=== PATIENT | male | born 1950 | race Caucasian/White ===

== ENCOUNTER 2018-08-14 10:12 | Inpatient (IN) ==
--- NOTE | 2018-08-14 10:46 | Emergency Department Note ---
Altered Mental Status HPI - General Chief Complaint: Altered Mental Status Stated Complaint: confusion, SOB, cough Time Seen by Provider: 08/14/18 10:43 Source: patient Mode of arrival: wheelchair Limitations: no limitations - History of Present Illness HPI Narrative: 68-year-old male presents to ED via private vehicle with history of increased confusion since Tuesday. His states that he was at a wedding and he was sitting in a chair by himself, he was not socializing. Did have a little bit of diarrhea yesterday. History of chronic back pain for which she takes oxycodone. He may have taken a few extra oxycodone tablets and this might be what he has been confused. He still a little bit off this morning but only took 1 pill this morning. History of spinal stimulator implant in June of this year. Also he was weaned off of the fentanyl patch that he was on prior to that and he takes oxycodone on a regular basis. He mostly self administers, denies alcohol use. There is no history of nausea vomiting, he did fall several times this weekend, unknown as to head injury or not. He denies headache but he does have a cough, denies abdominal pain denies urinary symptoms. No fevers or chills, no chest pain. Walks with a cane normally. He has been a little bit off balance but he is always a little bit off balance. No focal one-sided weakness, no facial asymmetry, he is awake alert oriented 3 at this time. Mostly seems like he had personality plant changer the weekend. Unexplained. MD complaint: altered mental status, confusion Timing confirmed by: spouse, family member - Related Data Home Medications Medication Instructions Recorded Confirmed buprenorphine 20 mcg/hour weekly 1 patch TRANSDERMA QWEEK 05/18/17 04/20/18 transdermal patch diazepam 5 mg tablet 5 mg PO BID 05/18/17 04/20/18 hydrochlorothiazide 12.5 mg capsule 12.5 mg PO QDAY 05/18/17 04/20/18 latanoprost 0.005 % eye drops 1 drp OPHTHALMIC QPM ml 05/18/17 04/20/18 linagliptin 2.5 mg-metformin 1,000 1 tab PO BID 05/18/17 04/20/18 mg tablet meloxicam 15 mg tablet 15 mg PO QDAY 05/18/17 04/20/18 niacin ER 500 mg tablet,extended 500 mg PO BID tab 05/18/17 04/20/18 release 24 hr omega-3 fatty acids 1,000 mg 2,000 mg PO QDAY 05/18/17 04/20/18 capsule oxycodone-acetaminophen 5 mg-325 1 tab PO .Q4-6H PRN tab 05/18/17 04/20/18 mg tablet ropinirole 1 mg tablet 1 mg PO .COMPLEX 05/18/17 04/20/18 simvastatin 10 mg tablet 10 mg PO QPM 05/18/17 04/20/18 timolol maleate 0.5 % eye gel 1 drp OPHTHALMIC QDAY 05/18/17 04/20/18 forming solution amlodipine 10 mg-benazepril 20 mg 1 cap PO QDAY 05/26/17 04/20/18 capsule cholecalciferol (vitamin D3) 1,000 1,000 unit PO BID cap 05/26/17 04/20/18 unit capsule trazodone 50 mg tablet 50 mg PO QHS PRN 05/26/17 04/20/18 Previous Rx's Medication Instructions Recorded imipramine 25 mg tablet 25 mg PO QHS #30 tab 04/20/18 tamsulosin 0.4 mg capsule 0.8 mg PO QDAY #60 cap 04/20/18 Allergies Allergy/AdvReac Type Severity Reaction Status Date / Time No Known Drug Allergies Allergy Verified 08/14/18 10:15 Review of Systems Constitutional: Denies: fever, chills Eyes: Denies: eye pain ENT ED: Denies: ear pain, throat pain Cardiovascular: Denies: chest pain, palpitations, dyspnea on exertion Respiratory: Reports: cough. Denies: shortness of breath Gastrointestinal: Reports: diarrhea. Denies: abdominal pain, nausea Genitourinary: Denies: dysuria Musculoskeletal: Reports: back pain. Denies: joint swelling Integumentary: Denies: rash Neurological: Reports: weakness, paresthesias, confusion, abnormal gait. Denies: headache Psychiatric: Denies: anxiety Endocrine: Denies: fatigue Hematological/Lymphatic: Denies: easy bleeding Past Medical History - Past Medical History Source: nursing notes reviewed Medical history: Reports: arthritis, hypertension Surgical history ED: Reports: orthopedic, other, other (spinal stimulator implanted.) Family history: Reports: non-contributory - Social History smoking status: Never smoker Alcohol use: Reports: Rarely Drug use: Reports: none Physical Exam Limitations: no limitations General appearance: alert, in no apparent distress Head: atraumatic, normocephalic, normal inspection Eye: Present: normal appearance, PERRL, EOMI. Absent: conjunctival injection ENT: normal exam, normal oropharynx, mucous membranes moist, TM's normal bilate rally Neck: Present: normal inspection, full ROM, trachea midline. Absent: tenderness, meningismus, thyromegaly Chest: Present: normal inspection, symmetric chest wall rise. Absent: tenderness Respiratory: Present: normal lung sounds bilaterally. Absent: respiratory distress, rales/crackles, wheezes Cardiovascular: Present: regular rate, normal rhythm, normal heart sounds Abdominal: Present: soft. Absent: distention, tenderness, guarding : Present: normal inspection, normal testicular lie Extremities: Present: normal inspection, full ROM Back: Present: normal inspection, L-S tenderness, muscle spasm, paraspinal tenderness, other (no acute erythema, spinal stimulator to the left side of the spine, surgical scar tissue appears unremarkable.). Absent: CVA tenderness (R), CVA tenderness (L) Neurological: Present: alert, oriented X3, CN II-XII intact, other (slightly ataxic in. Finger to nose is off on the left side as well as right.) Psychiatric: Present: normal affect Skin: Present: warm, normal color. Absent: rash Course - Reevaluation(s) Reevaluation #1: Patient started on IV fluids up. Baseline labs as well as x-rays were ordered. A chest x-ray was negative for acute infiltrates. Spinal stimulator was noted to be in place in the area of T8. He did have evidence of compression fracture on the T-spine. This was thought to be old. No new findings. He has no acute new neurologic symptoms consistent with TIA or stroke. It turns out his calcium scores were very high at 17.[address] of the head is showing multiple osteobla stic lesions consistent with multiple myeloma. I did talk with Dr. Ham as well as nephrology and Dr. Villalobos who stated that he would be happy to consult. Final diagnosis is #1 altered level of mentation #2 chronic back pain on narcotics. #3 new findings of renal insufficiency with creatinine of 3.4. n#4) hypercalcemia. #5 likely new onset or new diagnosis of multiple myeloma. Vital Signs Temperature 98.4 F 08/14/18 10:12 Pulse Rate 110 H 08/14/18 10:12 Respiratory Rate 20 08/14/18 10:12 Blood Pressure 154/90 08/14/18 10:12 Pulse Oximetry (%) 96 08/14/18 10:12 Temperature 98.4 F 08/14/18 10:12 Pulse Rate 93 H 08/14/18 12:31 Respiratory Rate 20 08/14/18 10:12 Blood Pressure 175/93 08/14/18 12:31 Pulse Oximetry (%) 96 08/14/18 12:31 Altered Mental Status - Lab Data Lab results reviewed: Yes I reviewed the patient's lab results. Result diagrams: 08/14/18 10:45 08/14/18 10:45 Lab Results 08/14/18 08/14/18 08/14/18 Range/Units 10:45 10:45 10:45 WBC 8.7 (4.5-11.0) K/mcL RBC 3.95 L (4.50-5.90) M/mcL Hgb 11.9 L (13.5-16.5) g/dL Hct 35.4 L (41.0-55.0) % MCV 89.6 (80.0-100.0) fL MCH 30.1 (26.0-34.0) pg MCHC 33.6 (31.0-36.0) g/dL RDW 15.3 H (11.5-14.5) % Plt Count 196 (140-440) K/mcL MPV 10.0 (7.4-10.4) fL Total Counted 100 Seg Neutrophils % 78 (38-78) % Band Neutrophils % 3 (0-10) % Lymphocytes % 6 L (15-49) % Monocytes % (Manual) 11 (1-12) % Reactive Lymphocytes 2 (0-2) % Platelet Estimate Normal (NORMAL) RBC Morphology Normal (NORMAL) VBG Lactic Acid (0.5-2.0) mmol/L Sodium 135 (133-145) mmol/L Potassium 3.9 (3.3-5.1) mmol/L Chloride 93 L (96-108) mmol/L Carbon Dioxide 29 (22-30) mmol/L Anion Gap 13.0 (8-16) BUN 30 H (8-23) mg/dl Creatinine 3.4 H (0.7-1.2) mg/dl GFR Calculation 18 Glucose 195 H (70-105) mg/dL Calcium 17.0 H* (8.6-10.4) mg/dl Total Bilirubin 0.5 (0.0-1.0) mg/dL AST 28 (0-37) U/l ALT 31 (0-40) U/l Alkaline Phosphatase 77 (39-117) U/L C-Reactive Protein 3.2 H (0.0-0.8) mg/dl Total Protein 6.8 (5.9-8.4) gm/dL Albumin 3.9 (3.2-5.2) gm/dL Globulin 2.9 (2.2-3.7) gm/dL Albumin/Globulin Ratio 1.3 (1.0-2.3) Vitamin B12 383.2 (232-1245) pg/ml Folate (4.2-19.9) ng/mL TSH 1.71 (0.27-5.01) uIU/ml Urine Color Urine Appearance Urine pH (5.0-9.0) Ur Specific [place] (1.000-1.035) Urine Protein (NEG) mg/dL Urine Glucose (UA) (NEG) mg/dL Urine Ketones (NEG) mg/dL Urine Occult Blood (<0.03) mg/dL Urine Nitrate (NEG) Urine Bilirubin (NEG) mg/dL Urine Urobilinogen (NEG) mg/dL Ur Leukocyte Esterase (NEG) /uL Urine RBC (0-1) /hpf Urine WBC (0-4) /hpf Ur Squamous Epith Cells (0-4) /hpf Amorphous Crystals (0) /hpf Urine Bacteria (0) /hpf Hyaline Casts (0-2) /lpf Urine Mucus (0) /hpf Ur Culture Indicated? 08/14/18 08/14/18 08/14/18 Range/Units 10:45 10:52 11:25 WBC (4.5-11.0) K/mcL RBC (4.50-5.90) M/mcL Hgb (13.5-16.5) g/dL Hct (41.0-55.0) % MCV (80.0-100.0) fL MCH (26.0-34.0) pg MCHC (31.0-36.0) g/dL RDW (11.5-14.5) % Plt Count (140-440) K/mcL MPV (7.4-10.4) fL Total Counted Seg Neutrophils % (38-78) % Band Neutrophils % (0-10) % Lymphocytes % (15-49) % Monocytes % (Manual) (1-12) % Reactive Lymphocytes (0-2) % Platelet Estimate (NORMAL) RBC Morphology (NORMAL) VBG Lactic Acid 1.5 (0.5-2.0) mmol/L Sodium (133-145) mmol/L Potassium (3.3-5.1) mmol/L Chloride (96-108) mmol/L Carbon Dioxide (22-30) mmol/L Anion Gap (8-16) BUN (8-23) mg/dl Creatinine (0.7-1.2) mg/dl GFR Calculation Glucose (70-105) mg/dL Calcium (8.6-10.4) mg/dl Total Bilirubin (0.0-1.0) mg/dL AST (0-37) U/l ALT (0-40) U/l Alkaline Phosphatase (39-117) U/L C-Reactive Protein (0.0-0.8) mg/dl Total Protein (5.9-8.4) gm/dL Albumin (3.2-5.2) gm/dL Globulin (2.2-3.7) gm/dL Albumin/Globulin Ratio (1.0-2.3) Vitamin B12 (232-1245) pg/ml Folate 15.2 (4.2-19.9) ng/mL TSH (0.27-5.01) uIU/ml Urine Color Yellow Urine Appearance Cloudy Urine pH 5.0 (5.0-9.0) Ur Specific [place] 1.016 (1.000-1.035) Urine Protein 100 A (NEG) mg/dL Urine Glucose (UA) Negative (NEG) mg/dL Urine Ketones Neg (NEG) mg/dL Urine Occult Blood 0.03 A (<0.03) mg/dL Urine Nitrate Neg (NEG) Urine Bilirubin Neg (NEG) mg/dL Urine Urobilinogen Neg (NEG) mg/dL Ur Leukocyte Esterase Neg (NEG) /uL Urine RBC 3 H (0-1) /hpf Urine WBC 5 H (0-4) /hpf Ur Squamous Epith Cells 0 (0-4) /hpf Amorphous Crystals Mod A (0) /hpf Urine Bacteria 0 (0) /hpf Hyaline Casts 7 H (0-2) /lpf Urine Mucus Mod (0) /hpf Ur Culture Indicated? No - Radiology Data Radiology results reviewed: Yes I reviewed the patient's radiology results. Disposition Pt seen by CERTIFIED PHARMACY TECH/PA only: No Clinical Impression: Hypercalcemia, Altered mental status Disposition: Xfer As Inpt ([facility]) Condition: Fair Referrals: Deborah Garcia MD [Primary Care Provider] -
--- NOTE | 2018-08-14 10:47 | XRay Report ---
CLINICAL INFORMATION: weakness, SOB, cough COMPARISON: None. FINDINGS: The heart size, mediastinum and pulmonary vessels are unremarkable. The lungs are clear. There are no effusions. Spinal stimulator electrodes overlie the posterior epidural space at T7-T10 with no evidence of wire/electrode breakage. Mild T11 compression fracture is likely chronic. Moderate degenerative disease seen throughout the upper thoracic spine The bones and soft tissues are, otherwise, within normal limits. IMPRESSION: No acute cardiopulmonary disease. Interpreted and Authenticated by: Onesimo Gomez 08/14/18
[2018-08-14 11:25] LABS: Hematocrit 35.4 % (41.0-55.0); Hemoglobin 11.9 g/dL (13.5-16.5); Mean Cell Volume 89.6 fL (80.0-100.0); Mean Corpuscular HGB Conc 33.6 g/dL (31.0-36.0); Platelet Count 196 K/mcL (140-440); RBC 3.95 M/mcL (4.50-5.90); Red Cell Distribution Width 15.3 % (11.5-14.5); WBC 8.7 K/mcL (4.5-11.0)
[2018-08-14 11:59] LABS: ALT/SGPT 31 U/l (0-40); AST/SGOT 28 U/l (0-37); Albumin 3.9 gm/dL (3.2-5.2); Albumin/Globulin Ratio 1.3 (1.0-2.3); Alkaline Phosphatase 77 U/L (39-117); Band Neutrophils % 3 % (0-10); Bilirubin,Total 0.5 mg/dL (0.0-1.0); Blood Urea Nitrogen 30 mg/dl (8-23); C-Reactive Protein 3.2 mg/dl (0.0-0.8); Carbon Dioxide 29 mmol/L (22-30); Chloride 93 mmol/L (96-108); Globulin 2.9 gm/dL (2.2-3.7); Glomerular Filtration Rate 18; Glucose 195 mg/dL (70-105); Lymphocytes % 6 % (15-49); Monocytes % (Manual) 11 % (1-12); Platelet Estimate NORMAL (NORMAL); Potassium 3.9 mmol/L (3.3-5.1); RBC Morphology NORMAL (NORMAL); Reactive Lymphocytes 2 % (0-2); Segmented Neutrophils % 78 % (38-78); Sodium 135 mmol/L (133-145); Thyroid Stimulating Hormone 1.71 uIU/ml (0.27-5.01)
--- NOTE | 2018-08-14 12:02 | Cat Scan Report ---
CLINICAL INFORMATION: Confusion after closed head injury - fall COMPARISON: Brain MRI 06/17/2009 TECHNIQUE: 2.5 mm helical slices were obtained in the skull base to vertex. Following reconstruction, axial reformatted images were reviewed at bone and parenchymal windows. The exam was performed using radiation dose optimization techniques including, but not limited to, automated exposure control, adjustment of the mA and/or kV according to patient size and use of iterative reconstruction technique. FINDINGS: The ventricles, sulci, fissures, and cisterns are normal in size and configuration for age. No extra-axial fluid collections are identified. The cerebrum, brainstem and cerebellum are unremarkable. There is no evidence of hemorrhage, mass effect, or edema. Bone windows multiple lytic lesions widely disseminated throughout the area. Some of the lesions have eroded the inner and outer skull table. These are new from the brain MRI 2009.. IMPRESSION: 1. No hemorrhage or other intracerebral abnormality. 2. Multiple lytic lesions widely disseminated throughout the calvaria - new from a brain MRI nine years ago. Primary diagnostic considerations include multiple myeloma or multiple osteolytic metastases from a unknown primary carcinoma. Suggest: correlation with SPEP/ UPEP to exclude multiple myeloma. If these laboratory tests are negative, suggest CT of the chest, abdomen and pelvis to search for a primary tumor. Interpreted and Authenticated by: Onesimo Gomez 08/14/18
[2018-08-14 12:06] LABS: Vitamin B12 383.2 pg/ml (232-1245)
[2018-08-14 12:07] LABS: Folate 15.2 ng/mL (4.2-19.9)
[2018-08-14 12:07] LABS: Appearance,Urine CLOUDY; Bacteria,Urine 0 /hpf (0); Bilirubin,Urine NEG (NEG); Color,Urine YELLOW; Culture Indicated,Urine NO; Glucose,Urine (UA) NEGATIVE (NEG); Ketones,Urine NEG (NEG); Leukocyte Esterase,Urine NEG /uL (NEG); Mucus,Urine MOD /hpf (0); Nitrate,Urine NEG (NEG); Protein,Urine 100 mg/dL (NEG); Specific Gravity,Urine 1.016 (1.000-1.035); Urine Amorphous Crystals MOD /hpf (0); Urine Blood 0.03 mg/dL (<0.03); Urine Hyaline Cast 7 /lpf (0-2); Urine RBC 3 /hpf (0-1); Urine Squamous Epithelial Cell 0 /hpf (0-4); Urine WBC 5 /hpf (0-4); Urobilinogen,Urine NEG (NEG)
[2018-08-14] MEDS ORDERED: FUROSEMIDE 40 MG/4 ML VIAL IV ONE ×2 (12:59→23:30)
[2018-08-14] MEDS ORDERED: 0.9 % SODIUM CHLORIDE 1,000 ML IV SCH (13:00)
--- NOTE | 2018-08-14 13:44 | Internal Med History&Physical ---
Medical - H&P: HPI Patient information: Note initiated : 08/14/18 at 1:39 pm Service Date, if different from initiated Date: [] Patient: Joshua Adams a 68 y/o M admitted on for Confusion, SOB, Cough. Chief Complaint: [] History of present illness: Mr. Adams is a 68 year old M Who presents the ED with his for increased weakness confusion over the weekend. Per his seem to start Tuesday but especially Tuesday was noticeable when they were at a wedding and he was over sitting in chair by himself not talking to anybody in not communicating much with people who would interact with him. His said this is quite unusual as he is quite gregarious and is hard for him to not talk. He was unable to follow conversations and was not making sense. Tuesday was a little bit better but he is still confused. wanted to bring him into the hospital but he wanted to wait and see Dr. pavon. He called Dr. Solano's office on Tuesday and patient was unable to be seen on the same day so his brought him into the ED. Does have a bit of a dry cough and has some chest pain which is related to pleuritic chest pain anterior wall where he fell against a door jam in the bathroom. Feels he does not take a deep breath because of the pain. He is oxygenating well in the ED. Chest x-ray in the ED was unremarkable. He did have one episode nausea vomiting last night. She does feel foggy and admits to being extremely weak. He has a mild headache but no other complaints other than was mentioned above. In the ED he was evaluated for labs and imaging found to have a severe hypercalcemia at 17 renal failure with creatinine 3.[address] brain showed multiple lytic lesions throughout the school. Case was discussed with Dr. Carolyn sprague as this appears to be a case of multiple myeloma. We will follow along. Case was also discussed with health sciences dean who will follow along. Patient started on IV hydration in the ED. Has a history of chronic pain from lumbar cervical region of the spine. His chronic pain seems to have progressed over the past 6 months. Review of Systems: Pertinent positives as above. Denies fever/chills/abdominal pain/diarrhea. 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) RLS (restless legs syndrome) (Chronic) Impaired fasting glucose (Chronic) Dyslipidemia (Chronic) BPH w/o urinary obs/LUTS (Chronic) Insomnia (Chronic) Hypertension (Chronic) Glaucoma (Chronic) Fatty liver (Chronic) Past Surgical History (Last Reviewed 04/20/18 @ 09:09 by VIVAINE Ferris) History of repair of rotator cuff (Chronic) Family History (Last Reviewed 04/20/18 @ 09:09 by VIVIANE Ferris) Father Alzheimer's disease CAD (coronary artery disease) Heart disease Mother Malignant neoplasm of pancreas Other Diabetes Social History (Last Updated 04/20/18 @ 10:10 by VIVIANE Ferris) Denies tobacco Social alcohol Embolus with a cane 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 at home with family Medical - H&P: Meds Home Medications Medication Instructions Recorded Confirmed Type buprenorphine 20 mcg/hour weekly 1 patch TRANSDERMA QWEEK 05/18/17 04/20/18 History transdermal patch diazepam 5 mg tablet 5 mg PO BID 05/18/17 04/20/18 History hydrochlorothiazide 12.5 mg capsule 12.5 mg PO QDAY 05/18/17 04/20/18 History latanoprost 0.005 % eye drops 1 drp OPHTHALMIC QPM ml 05/18/17 04/20/18 History linagliptin 2.5 mg-metformin 1,000 1 tab PO BID 05/18/17 04/20/18 History mg tablet meloxicam 15 mg tablet 15 mg PO QDAY 05/18/17 04/20/18 History niacin ER 500 mg tablet,extended 500 mg PO BID tab 05/18/17 04/20/18 History release 24 hr omega-3 fatty acids 1,000 mg 2,000 mg PO QDAY 05/18/17 04/20/18 History capsule oxycodone-acetaminophen 5 mg-325 1 tab PO .Q4-6H PRN tab 05/18/17 04/20/18 History mg tablet ropinirole 1 mg tablet 1 mg PO .COMPLEX 05/18/17 04/20/18 History simvastatin 10 mg tablet 10 mg PO QPM 05/18/17 04/20/18 History timolol maleate 0.5 % eye gel 1 drp OPHTHALMIC QDAY 05/18/17 04/20/18 History forming solution amlodipine 10 mg-benazepril 20 mg 1 cap PO QDAY 05/26/17 04/20/18 History capsule cholecalciferol (vitamin D3) 1,000 1,000 unit PO BID cap 05/26/17 04/20/18 History unit capsule trazodone 50 mg tablet 50 mg PO QHS PRN 05/26/17 04/20/18 History imipramine 25 mg tablet 25 mg PO QHS #30 tab 04/20/18 04/20/18 Rx tamsulosin 0.4 mg capsule 0.8 mg PO QDAY #60 cap 04/20/18 04/20/18 Rx Allergies Allergy/AdvReac Type Severity Reaction Status Date / Time No Known Drug Allergies Allergy Verified 08/14/18 10:15 Medical - H&P: Exam - Constitutional Vitals: Temp Pulse Resp BP Pulse Ox 98.4 F 105 H 20 170/95 96 08/14/18 10:12 08/14/18 13:01 08/14/18 10:12 08/14/18 13:01 08/14/18 13:01 Exam: General: Alert, Awake, No acute Distress Eyes/N/T: EOMI, PEERL, DMM Head/Neck: neck supple, normocephalic atraumatic CV: RRR, 2/6 SM Pulm: Clear b/l, no wheezing/rhonchi/rales Abd: soft, nontender, +BS x4 Ext: no clubbing/cyanosis/edema Neuro: Alert, no focal deficits, moves all extremities, CN 2-12 grossly intact, symmetrical strength b/l upper/lower but also significantly weak, sensations intact b/l upper/lower Skin: warm/dry Medical - H&P: Reslt - Labs CBC & Chem 7: 08/14/18 10:45 08/14/18 10:45 Labs: Short CBC 08/14/18 Range/Units 10:45 WBC 8.7 (4.5-11.0) K/mcL Hgb 11.9 L (13.5-16.5) g/dL Hct 35.4 L (41.0-55.0) % Plt Count 196 (140-440) K/mcL BMP 08/14/18 10:45 Sodium 135 Potassium 3.9 Chloride 93 L Carbon Dioxide 29 BUN 30 H Creatinine 3.4 H Glucose 195 H Calcium 17.0 H* Liver Function 08/14/18 Range/Units 10:45 Total Bilirubin 0.5 (0.0-1.0) mg/dL AST 28 (0-37) U/l ALT 31 (0-40) U/l Alkaline Phosphatase 77 (39-117) U/L Albumin 3.9 (3.2-5.2) gm/dL Urine 08/14/18 Range/Units 11:25 Urine Color Yellow Urine Appearance Cloudy Urine pH 5.0 (5.0-9.0) Ur Specific [address] 1.016 (1.000-1.035) Urine Protein 100 A (NEG) mg/dL Urine Glucose (UA) Negative (NEG) mg/dL - Impressions Chest x-ray unremarkable CT brain with multiple lytic lesions widely disseminated throughout the calvaria Medical - H&P: A/P - Narrative A/P Narrative: A: *Hypercalcemia: Highly suspicious for multiple myeloma *Cranial lytic lesions: 2/2 likely multiple myeloma *PETTY: 2/2 above *NCNC Anemia: 2/2 above *Encephalopathy, metabolic: 2/2 above *DM: *HTN/HLD: *Anxiety: *Chronic pain: * P: -Aggressive IVF -lasix after hydration -Denosumab, calcitonin -f/u chemistry -Nephrology consult -Dr. Leon consult -Dexamethasone 40mg qd x4 -SPEP/UPEP w/immunofix, Qaunt Ig, Free light chain pending -skeletal survey -cont isabel norvasc, hold ACEI/HCTZ, prn med -d/c Vit D supp -SSI, hold metformin - -pt/ot -ppx: heparin
[2018-08-14] MEDS ORDERED: LABETALOL 5 MG/ML ML IV PRN (14:06)
[2018-08-14] MEDS ORDERED: PROMETHAZINE 12.5 MG SUPP.RECT PR PRN (14:24)
[2018-08-14] MEDS ORDERED: POTASSIUM CHLORIDE 20 MEQ TABLET PO PRN ×2 (14:24)
[2018-08-14] MEDS ORDERED: POLYETHYLENE GLYCOL 3350 17 GM PACKET PO PRN (14:24)
[2018-08-14] MEDS ORDERED: MAGNESIUM SULFATE 2 GM/50 ML BAG IV PRN (14:24)
[2018-08-14] MEDS ORDERED: LACTULOSE 20 GM/30 ML ORAL.SOL PO PRN (14:24)
[2018-08-14] MEDS ORDERED: IPRATROPIUM/ALBUTEROL 3 ML AMPUL.NEB NEB PRN (14:24)
[2018-08-14] MEDS ORDERED: ONDANSETRON 4 MG/2 ML VIAL IV PRN (14:24)
[2018-08-14] MEDS ORDERED: CALCITONIN 400 UNIT/2 ML VIAL IM ONE (14:24)
[2018-08-14] MEDS ORDERED: METOCLOPRAMIDE 10 MG/2 ML VIAL IV PRN (14:24)
[2018-08-14] MEDS ORDERED: POTASSIUM CHLORIDE 40 MEQ in DEXTROSE 5% IN WATER 500 ML IV PRN (14:24)
[2018-08-14] MEDS ORDERED: HYDROcodone/APAP 5/325MG TABLET PO PRN (14:24)
[2018-08-14] MEDS ORDERED: DENOSUMAB 60 MG/ML SYRINGE SQ ONE ×2 (15:00→16:00)
[2018-08-14 15:18] LABS: Immunoglobulin M 9.7 mg/dl (40.0-230.0)
[2018-08-14 15:20] LABS: Immunoglobulin A 88.5 mg/dl (70.0-400.0); Total Protein PEP 6.5 gm/dL (5.9-8.4)
[2018-08-14] MEDS: 0.9 % SODIUM CHLORIDE 10 ML SYRINGE IV SCH ×2 (16:04→22:01)
[2018-08-14] MEDS: 0.9 % SODIUM CHLORIDE 1,000 ML IV SCH ×2 (16:11→20:37)
[2018-08-14] MEDS: DEXAMETHASONE 4 MG TABLET PO SCH (16:13)
[2018-08-14] MEDS: INSULIN LISPRO 1 UNIT/0.01 ML UNIT SQ SCH ×2 (17:07→21:56)
[2018-08-14] MEDS: amLODIPine 10 MG TABLET PO SCH (17:40)
--- NOTE | 2018-08-14 17:54 | Nephrology Consult Note ---
History of Present Illness - Reason for Consult Patient information: Note initiated : 08/14/18 at 5:52 pm Service Date, if different from initiated Date: [] Patient: Joshua Adams 68 y/o M admitted on 08/14/18 for Confusion, SOB, Cough. 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 This continued on till today when he was brought to ED. Initial concern was for to much pain Rx. The tentitive Dx of MM was made with Ca > 17, SCr >3 mg/dl and CT brain with a c alvarium full of ostolytic lesions. He is probable volume depleted but HgB 11's, no acidosis, albumin and globulin are WNL, normal anion gap. U/A with moderate proteinuria. When called by ED I recommended IV hydration, stop any nephrotoxic Rx, once volume repleate start TID lasix for caluresis, and maybe palmidronate. Will w/u dx of myeloma with SPEP, UpEP and immmunofixation and free light chain ratio as well as bone marrow Bx and heme onc referral. Very few diseases cause a Ca > 17. Besides MM, there is HTLV-1 infection, hypercalcemia of malignancy with volume contraction, sarcoidosis and milk alkali syndrome. Taken as a whole, LBP, skull lesions and hypercalcemia = MM till proven otherwise. The first order of business in any of these situations is volume expansion due to hypercalcemia driven diuresis before hospitalization. Review of Systems ROS unobtainable: due to mental status Constitutional: fatigue, weakness Nose, mouth and throat: dry mouth Breasts: skin changes Cardiovascular: irregular heart rhythm Respiratory: cough Genitourinary: other Musculoskeletal: as per HPI, muscle weakness Integumentary: dry skin Neurological: as per HPI, confusion, disequilibrium Endocrine: fatigue, polydipsia Hematologic/Lymphatic: easy bleeding Past History Past medical history: - Past Medical History Source: nursing notes reviewed Medical history: Reports: arthritis, hypertension Surgical history ED: Reports: orthopedic, other, other (spinal stimulator implanted.) Family history: Reports: non-contributory - Social History smoking status: Never smoker Alcohol use: Reports: Rarely Drug use: Reports: none Medications and Allergies Home Medications Medication Instructions Recorded Confirmed Type diazepam 5 mg tablet 5 mg PO BID PRN 05/18/17 08/14/18 History hydrochlorothiazide 12.5 mg capsule 12.5 mg PO QDAY 05/18/17 08/14/18 History linagliptin 2.5 mg-metformin 1,000 1 tab PO BID 05/18/17 08/14/18 History mg tablet meloxicam 15 mg tablet 15 mg PO QDAY PRN 05/18/17 08/14/18 History niacin ER 500 mg tablet,extended 500 mg PO BID tab 05/18/17 08/14/18 History release 24 hr oxycodone-acetaminophen 5 mg-325 1 - 2 tab PO BID PRN tab 05/18/17 08/14/18 History mg tablet ropinirole 1 mg tablet 1 mg PO .COMPLEX 05/18/17 08/14/18 History simvastatin 10 mg tablet 10 mg PO QPM 05/18/17 08/14/18 History amlodipine 10 mg-benazepril 20 mg 1 cap PO QDAY 05/26/17 08/14/18 History capsule trazodone 50 mg tablet 50 mg PO QHS 05/26/17 08/14/18 History imipramine 25 mg tablet 25 mg PO QHS #30 tab 04/20/18 08/14/18 Rx tamsulosin 0.4 mg capsule 0.8 mg PO QDAY #60 cap 04/20/18 08/14/18 Rx Chlorhexidine Gluconate [Paroex] 15 ml .ROUTE BID 08/14/18 08/14/18 History [place]-3/Dha/Epa/Fish Oil [Fish Oil 1 each PO QDAY 08/14/18 08/14/18 History 1,000 mg Softgel] Sildenafil Citrate [Revatio] 100 mg PO DAILY 08/14/18 08/14/18 History Allergies Allergy/AdvReac Type Severity Reaction Status Date / Time No Known Drug Allergies Allergy Verified 08/14/18 10:15 Exam - Vital Signs Vital signs: Temp Pulse Resp BP Pulse Ox 98.4 F 77 18 165/99 92 08/14/18 14:28 08/14/18 17:42 08/14/18 16:01 08/14/18 16:01 08/14/18 17:42 - General Appearance General appearance: appears started age, chronically ill, fatigue EENT: ATNC, PERRL, mucous membranes dry Neck: no JVD, no carotid bruit Respiratory: rhonchi Cardiology: no rub, no gallops, regular rate Gastrointestinal: normoactive bowel sounds, no tenderness, no guarding, no organomegaly Neurologic: no focal deficit, confused, disoriented Musculoskeletal: no deformities, no erythema, no cyanosis, no clubbing Results - Lab Results 08/14/18 10:45 08/14/18 18:37 Most recent lab results Calcium 17.0 mg/dl (8.6-10.4) H* 08/14/18 10:45 Magnesium 1.7 mg/dL (1.6-2.5) 08/14/18 10:45 Assessment and Plan (1) Hypercalcemia The D/Dx for this is as follows: Multiple myeloma Hypercalcemia of malignancy Sarcoidosis or other granulomatous disease 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 - Calcitonin to see if responsive - Prolia or Pamidronate tomorrow if IVF and calcitonin not effective - No lasix yet Have added angiotenin enzyme level and PTH related peptide to AM labs but I seriously doubt they will be helpful Status: Acute Comment: Calvarium lesions and CA = 17 with presumed ARF = myeloma related disease till proven otherwise (2) Acute renal failure syndrome Status: Acute - Narrative A/P Narrative: The D/Dx for presumed ARF (no history of elevated SCr and prior U/A was bland and w/o proteinuria in EMR Dehydration Dehdration plus ACEi, thiazide and NSAIDs (ie pre-renal) Myeloma kidney - monitor GFR - Renal u/s - Hydrate - Follow u/p labs if no inprovement in 72 hours
--- NOTE | 2018-08-14 18:50 | XRay Report ---
CLINICAL INFORMATION: lytic lesions, suspect multiple myeloma COMPARISON: None. FINDINGS: There are multiple widely disseminated lytic lesions throughout the calvarium greater than 50 in number ranging up to 2 cm.. There are, however no definite lytic lesions seen throughout the remainder of the axial or appendicular skeleton. Mild T11 compression fractures is chronic IMPRESSION: Multiple lytic lesions confined to the calvarium. Interpreted and Authenticated by: Onesimo Gomez 08/14/18
[2018-08-14 19:36] LABS: Blood Urea Nitrogen 29 mg/dl (8-23); Calcium 15.8 mg/dl (8.6-10.4); Carbon Dioxide 30 mmol/L (22-30); Chloride 94 mmol/L (96-108); Glomerular Filtration Rate 19; Glucose 242 mg/dL (70-105); Potassium 4.1 mmol/L (3.3-5.1); Sodium 135 mmol/L (133-145)
[2018-08-14] MEDS ORDERED: rOPINIRole 1 MG TABLET PO SCH (21:00)
[2018-08-14] MEDS: LABETALOL 5 MG/ML ML IV PRN (21:00)
[2018-08-14] MEDS ORDERED: SENNOSIDES 1 TABLET PO PRN (21:00)
[2018-08-14] MEDS ORDERED: MAGNESIUM OXIDE 400 MG TABLET PO ONE (21:14)
[2018-08-14] MEDS ORDERED: INSULIN LISPRO 1 UNIT/0.01 ML UNIT SQ ONE (21:53)
[2018-08-14] MEDS: IMIPRAMINE 25 MG TABLET PO SCH (21:58)
[2018-08-14] MEDS: FAMOTIDINE 20 MG TABLET PO SCH (21:58)
[2018-08-14] MEDS: DOCUSATE SODIUM 100 MG CAPSULE PO SCH (21:58)
[2018-08-14] MEDS: oxyCODONE/APAP 5/325MG TABLET PO PRN (21:58)
[2018-08-14] MEDS: traZODone HCL 50 MG TABLET PO SCH (21:58)
[2018-08-14] MEDS: SIMVASTATIN 10 MG TABLET PO SCH (21:59)
[2018-08-14] MEDS: HEPARIN 5,000 UNIT/ML VIAL SQ SCH (21:59)
[2018-08-14 23:13] LABS: Albumin 3.7 gm/dL (3.2-5.2); Calcium 16.3 mg/dl (8.6-10.4); Phosphorous 2.9 mg/dL (2.7-4.5); Potassium 4.2 mmol/L (3.3-5.1)
[2018-08-15] MEDS: 0.9 % SODIUM CHLORIDE 1,000 ML IV SCH ×5 (00:39→22:57)
[2018-08-15] MEDS: 0.9 % SODIUM CHLORIDE 10 ML SYRINGE IV SCH ×3 (04:08→22:37)
--- NOTE | 2018-08-15 05:22 | Ultrasound Report ---
CLINICAL INFORMATION: ARF COMPARISON: None. FINDINGS: Both kidneys are normal and symmetric in size, position, configuration and echotexture: Right is 11.3 x 6 cm the left is 13 x 5 cm. No focal solid or cystic lesions, stones. No hydronephrosis. Arterial blood flow is normal to both kidneys on color Doppler Urinary bladder volume is 225 cc and the patient voids to completion. No focal bladder lesions. IMPRESSION: Normal kidneys and urinary bladder Interpreted and Authenticated by: Onesimo Gomez 08/15/18
[2018-08-15] MEDS: LABETALOL 5 MG/ML ML IV PRN (06:10)
[2018-08-15 06:54] LABS: Basophils # (Auto) 0 K/mcL (0.0-0.3); Basophils % (Auto) 0 % (0.0-2.0); Eosinophils # (Auto) 0 K/mcL (0.0-0.7); Eosinophils % (Auto) 0 % (0.0-7.0); Hematocrit 36.5 % (41.0-55.0); Hemoglobin 12.1 g/dL (13.5-16.5); Lymphocytes # (Auto) 0.3 K/mcL (1.5-4.8); Lymphocytes % (Auto) 4.4 % (15.5-49.0); Mean Corpuscular HGB Conc 33.1 g/dL (31.0-36.0); Monocytes # (Auto) 0 K/mcL (0.1-0.9); Monocytes % (Auto) 0.6 % (1.0-12.0); Platelet Count 180 K/mcL (140-440); RBC 4.05 M/mcL (4.50-5.90); Red Cell Distribution Width 15.6 % (11.5-14.5); WBC 7.6 K/mcL (4.5-11.0)
[2018-08-15 07:17] LABS: Parathyroid Hormone Intact 8.8 pg/ml (15-65)
[2018-08-15 07:38] LABS: ALT/SGPT 26 U/l (0-40); AST/SGOT 24 U/l (0-37); Albumin 3.9 gm/dL (3.2-5.2); Albumin/Globulin Ratio 1.4 (1.0-2.3); Alkaline Phosphatase 70 U/L (39-117); Bilirubin,Direct < 0.2 mg/dL (0.0-0.3); Bilirubin,Total 0.4 mg/dL (0.0-1.0); Blood Urea Nitrogen 34 mg/dl (8-23); Calcium 14.7 mg/dl (8.6-10.4); Carbon Dioxide 27 mmol/L (22-30); Chloride 94 mmol/L (96-108); Globulin 2.8 gm/dL (2.2-3.7); Glomerular Filtration Rate 18; Glucose 268 mg/dL (70-105); Lactate Dehydrogenase 264 U/L (94-250); Magnesium 1.4 mg/dL (1.6-2.5); Phosphorous 3.5 mg/dL (2.7-4.5); Potassium 3.8 mmol/L (3.3-5.1); Sodium 136 mmol/L (133-145); Triglycerides 101 mg/dl (<150); Uric Acid 11.3 mg/dL (2.5-8.0)
[2018-08-15] MEDS: INSULIN LISPRO 1 UNIT/0.01 ML UNIT SQ SCH ×5 (07:41→19:53)
[2018-08-15] MEDS ORDERED: MAGNESIUM SULFATE 2 GM/50 ML BAG IV ONE (07:50)
[2018-08-15] MEDS ORDERED: hydrALAZINE 20 MG/ML VIAL IV PRN (07:54)
--- NOTE | 2018-08-15 07:55 | Internal Med Progress Note ---
Medical - PN: Subj Patient information: Note initiated : 08/15/18 at 7:46 am Service Date, if different from initiated Date: [] Patient: Joshua Adams 68 y/o M admitted on 08/14/18 for Confusion, SOB, Cough. Chief Complaint: [] Interval history: Mr. Adams is a 68 year old M Who presents the ED with his for increased weakness confusion over the weekend. Per his seem to start Tuesday but especially Tuesday was noticeable when they were at a wedding and he was over sitting in chair by himself not talking to anybody in not communicating much with people who would interact with him. His said this is quite unusual as he is quite gregarious and is hard for him to not talk. He was unable to follow conversations and was not making sense. Tuesday was a little bit better but he is still confused. wanted to bring him into the hospital but he wanted to wait and see Dr. pavon. He called Dr. Solano's office on Tuesday and patient was unable to be seen on the same day so his brought him into the ED. Does have a bit of a dry cough and has some chest pain which is related to pleuritic chest pain anterior wall where he fell against a door jam in the bathroom. Feels he does not take a deep breath because of the pain. He is oxygenating well in the ED. Chest x-ray in the ED was unremarkable. He did have one episode nausea vomiting last night. She does feel foggy and admits to being extremely weak. He has a mild headache but no other complaints other than was mentioned above. In the ED he was evaluated for labs and imaging found to have a severe hypercalcemia at 17 renal failure with creatinine 3.[address] brain showed multiple lytic lesions throughout the school. Case was discussed with Dr. Carolyn sprague as this appears to be a case of multiple myeloma. We will follow along. Case was also discussed with quality engineer medical device who will follow along. Patient started on IV hydration in the ED. Has a history of chronic pain from lumbar cervical region of the spine. His chronic pain seems to have progressed over the past 6 months. 08/15 Slept well. Only complains of mild headache and chronic back pain. When in A. fib rate controlled last night. Calcium slowly coming down. Able to get calcitonin this morning. IV fluids. Review of Systems: denies fever/chills/nausea/vomiting/chest or abdominal pain/cough/dyspnea/diarrhea. Otherwise see above. - Constitutional Vitals: Vital Signs Temp Pulse Resp BP Pulse Ox 97.9 F 94 H 16 171/85 97 08/15/18 04:01 08/15/18 04:06 08/15/18 04:01 08/15/18 04:01 08/15/18 04:06 Period Temp Pulse Resp BP Sys/Katz Pulse Ox Last 24 Hr 97.9 F-99.1 F 35-110 16-20 123-186/71-99 82-99 Intake and Output 08/14/18 08/15/18 08/15/18 21:59 05:59 13:59 Intake Total 1838 2000 Output Total 800 1370 775 Balance 1038 630 775 Weight 84.55 kg Intake & Output: Intake & Output 08/14/18 08/15/18 08/15/18 21:59 05:59 13:59 Intake Total 1838 2000 Output Total 800 1370 775 Balance 1038 630 775 Weight 84.55 kg Intake: IV 1358 2000 Sodium Chloride 0.9% 1,000 ml @ 1358 2000 250 mls/hr IV .Q4H [facility] Rx#: [id number] Oral 480 Output: Urine Catheter Amount 1370 775 Void Amount 800 Other: Urine Appearance Clear Clear Clear Uretheral (Clifford) Clear Urine Color Pale Pale Pale Uretheral (Clifford) Pale Exam: General: Alert, Awake, No acute Distress Eyes/N/T: EOMI, Head/Neck: neck supple, CV: RRR, 2/6 SM Pulm: Clear b/l, no wheezing/rhonchi/rales Abd: soft, nontender, +BS x4 Ext: no clubbing/cyanosis/edema Neuro: Alert, no focal deficits, moves all extremities, Skin: warm/dry Medical - PN: Obj Da - Labs CBC & Chem 7: 08/15/18 03:40 08/15/18 03:40 Labs: Abnormal Lab Results 08/15/18 08/15/18 08/15/18 03:40 03:40 03:40 RBC 4.05 L Hgb 12.1 L Hct 36.5 L RDW 15.6 H Gran % 95.0 H Lymph % (Auto) 4.4 L [place] % (Auto) 0.6 L Lymph # (Auto) 0.3 L [place] # (Auto) 0 L Lymphocytes % Sodium Chloride 94 L BUN 34 H Creatinine 3.3 H Glucose 268 H Uric Acid 11.3 H Calcium 14.7 H* Magnesium 1.4 L Lactate Dehydrogenase 264 H C-Reactive Protein PTH Intact 8.8 L Urine Protein Urine Occult Blood Urine RBC Urine WBC Amorphous Crystals Hyaline Casts IgG IgM 08/14/18 08/14/18 08/14/18 18:39 18:37 11:25 RBC Hgb Hct RDW Gran % Lymph % (Auto) [place] % (Auto) Lymph # (Auto) [place] # (Auto) Lymphocytes % Sodium 132 L Chloride 92 L 94 L BUN 29 H 29 H Creatinine 3.6 H 3.2 H Glucose 247 H 242 H Uric Acid Calcium 16.3 H* 15.8 H* Magnesium Lactate Dehydrogenase C-Reactive Protein PTH Intact Urine Protein 100 A Urine Occult Blood 0.03 A Urine RBC 3 H Urine WBC 5 H Amorphous Crystals Mod A Hyaline Casts 7 H IgG IgM 08/14/18 08/14/18 08/14/18 10:45 10:45 10:45 RBC Hgb Hct RDW Gran % Lymph % (Auto) [place] % (Auto) Lymph # (Auto) [place] # (Auto) Lymphocytes % Sodium Chloride 93 L BUN 30 H Creatinine 3.4 H Glucose 195 H Uric Acid Calcium 17.0 H* Magnesium Lactate Dehydrogenase C-Reactive Protein 3.2 H PTH Intact Urine Protein Urine Occult Blood Urine RBC Urine WBC Amorphous Crystals Hyaline Casts IgG 580 L IgM 9.7 L 08/14/18 10:45 RBC 3.95 L Hgb 11.9 L Hct 35.4 L RDW 15.3 H Gran % Lymph % (Auto) [place] % (Auto) Lymph # (Auto) [place] # (Auto) Lymphocytes % 6 L Sodium Chloride BUN Creatinine Glucose Uric Acid Calcium Magnesium Lactate Dehydrogenase C-Reactive Protein PTH Intact Urine Protein Urine Occult Blood Urine RBC Urine WBC Amorphous Crystals Hyaline Casts IgG IgM Meds: Medications Albuterol/Ipratropium (Duoneb) 3 ml NEB Q4HP PRN PRN Reason: Shortness Of Breath Amlodipine Besylate (Norvasc) 10 mg PO DAILY [facility] Last Admin: 08/14/18 17:40 Dose: 10 mg Documented by: Calcitonin Voss (Miacalcin) 300 unit IM BID [facility] Stop: 08/15/18 21:01 Dexamethasone (Decadron) 40 mg PO DAILY [facility] Stop: 08/17/18 09:01 Last Admin: 08/14/18 16:13 Dose: 40 mg Documented by: Diagnostic Test (Pha) (Accu-Chek) 1 each FS ACHS [facility] Last Admin: 08/15/18 07:43 Dose: 1 each Documented by: Diazepam (Valium) 5 mg PO BIDP PRN PRN Reason: Anxiety Docusate Sodium (Colace) 100 mg PO BID [facility] Last Admin: 08/14/18 21:58 Dose: 100 mg Documented by: Famotidine (Pepcid) 20 mg PO BID [facility] Last Admin: 08/14/18 21:58 Dose: 20 mg Documented by: Heparin Sodium (Porcine) (Heparin) 5,000 unit SQ Q12 [facility] Last Admin: 08/14/18 21:59 Dose: 5,000 unit Documented by: Potassium Chloride 40 meq/ (Dextrose) 520 mls @ 130 mls/hr IV UD PRN PRN Reason: Potassium < 3 Magnesium Sulfate (Magnesium Sulfate) 2 gm in 50 mls @ 50 mls/hr IV UD PRN PRN Reason: Magnesium </= 1.6 Imipramine HCl (Tofranil) 25 mg PO QHS [facility] Last Admin: 08/14/18 21:58 Dose: 25 mg Documented by: Insulin Human Lispro (Humalog) 0 unit SQ [facility]; Protocol Last Admin: 08/15/18 07:41 Dose: 9 unit Documented by: Labetalol HCl (Trandate) 0 mg IV Q2HP PRN PRN Reason: Hypertension Last Admin: 08/15/18 06:10 Dose: 10 mg Documented by: Lactulose (Cephulac) 10 gm PO DAILYP PRN PRN Reason: Constipation Metoclopramide HCl (Reglan) 10 mg IV Q6HP PRN PRN Reason: Nausea And Vomiting Morphine Sulfate (Morphine) 0 mg IV Q3HP PRN PRN Reason: Pain Ondansetron HCl (Zofran) 4 mg IV Q4HP PRN PRN Reason: Nausea And Vomiting Oxycodone/Acetaminophen (Percocet 5-325 Mg) 1 - 2 tab PO BIDP PRN PRN Reason: Pain Last Admin: 08/14/18 21:58 Dose: 1 tab Documented by: Sildenafil Citrate [ Revatio] 20 Mg Tablet 1 dose PO DAILY [facility] Polyethylene Glycol (Miralax) 17 gm PO DAILYP PRN PRN Reason: Constipation Potassium Chloride (Kdur) 40 meq PO UD PRN PRN Reason: Potssium is 3-3.5 Potassium Chloride (Kdur) 40 meq PO UD PRN PRN Reason: Potassium < 3 Promethazine HCl (Phenergan) 12.5 mg MN Q6HP PRN PRN Reason: Pain Senna (Senokot) 2 tab PO HSP PRN PRN Reason: Constipation Simvastatin (Zocor) 10 mg PO QPM [facility] Last Admin: 08/14/18 21:59 Dose: 10 mg Documented by: Sodium Chloride (Saline Flush) 10 ml IV Q8 [facility] Last Admin: 08/15/18 04:08 Dose: Not Given Documented by: Tamsulosin HCl (Flomax) 0.8 mg PO QDAY [facility] Trazodone HCl (Desyrel) 50 mg PO QHS [facility] Last Admin: 08/14/18 21:58 Dose: 50 mg Documented by: Medical - PN: A/P - Time Spent With Patient Total time spent is greater than 50% in coordination of care (as documented) at patient's floor/unit and/or counseling patient: - Narrative A/P Narrative: A: *Hypercalcemia, symptomatic: Highly suspicious for multiple myeloma -14.7<17 *Cranial lytic lesions: 2/2 likely multiple myeloma -skeletal survey with cranial lesions only, T11 comp Fx chronic *PETTY: 2/2 above + meds *NCNC Anemia: 2/2 above *Encephalopathy, metabolic: 2/2 above, improving *DM: *HTN/HLD: *Anxiety: *Chronic pain: *Afib, new: rates 90's-110's *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 Leon (heme/onc) consulted -Dexamethasone 40mg qd x4 -SPEP/UPEP w/immunofix, Qaunt Ig, Free light chain pending -cont isabel norvasc, hold ACEI/HCTZ, prn med -Lopressor started, may consider cardioversion if not spontaneously converts -d/c Vit D supp and HCTZ -SSI, hold metformin -check EKG QT -pt/ot -ppx: heparin Medical - PN: Qual - VTE Deep Vein Thrombosis/Pulmonary Embolism Present on Admission: No
[2018-08-15] MEDS ORDERED: 0.9 % SODIUM CHLORIDE 1,000 ML IV SCH (08:00)
[2018-08-15] MEDS: amLODIPine 10 MG TABLET PO SCH (08:29)
[2018-08-15] MEDS: FAMOTIDINE 20 MG TABLET PO SCH ×2 (08:29→19:53)
[2018-08-15] MEDS: DOCUSATE SODIUM 100 MG CAPSULE PO SCH ×2 (08:29→19:53)
[2018-08-15] MEDS: HEPARIN 5,000 UNIT/ML VIAL SQ SCH ×2 (08:29→19:52)
[2018-08-15] MEDS: TAMSULOSIN 0.4 MG CAPSULE PO SCH (08:29)
[2018-08-15] MEDS: SILDENAFIL CITRATE 20 MG PO SCH (08:30)
[2018-08-15] MEDS: DEXAMETHASONE 4 MG TABLET PO SCH (08:30)
[2018-08-15] MEDS ORDERED: rOPINIRole 1 MG TABLET PO SCH (09:00)
[2018-08-15] MEDS: METOPROLOL TARTRATE 5 MG/5 ML VIAL IV PRN ×2 (09:03→15:45)
[2018-08-15] MEDS: METOPROLOL TARTRATE 25 MG TABLET PO SCH ×2 (09:04→19:53)
[2018-08-15] MEDS: ASPIRIN 81 MG TAB.CHEW PO SCH (10:44)
[2018-08-15] MEDS: CALCITONIN 400 UNIT/2 ML VIAL IM SCH ×2 (12:03→19:52)
[2018-08-15] MEDS ORDERED: fentaNYL 100 MCG/2 ML VIAL IV ONE (12:40)
[2018-08-15] MEDS ORDERED: ONDANSETRON 4 MG/2 ML VIAL IV ONE (12:40)
[2018-08-15] MEDS ORDERED: MIDAZOLAM 2 MG/2 ML VIAL IV ONE ×2 (12:40→13:28)
[2018-08-15 15:46] LABS: Blood Urea Nitrogen 40 mg/dl (8-23); Calcium 12.8 mg/dl (8.6-10.4); Carbon Dioxide 26 mmol/L (22-30); Chloride 97 mmol/L (96-108); Glomerular Filtration Rate 20; Glucose 304 mg/dL (70-105); Potassium 3.5 mmol/L (3.3-5.1); Sodium 135 mmol/L (133-145)
[2018-08-15] MEDS ORDERED: INSULIN GLARGINE, HUMAN 1 UNIT/0.01 ML SQ ONE (16:45)
--- NOTE | 2018-08-15 19:28 | Nephrology Progress Note ---
Subjective Patient information: Note initiated : 08/15/18 at 7:25 pm Service Date, if different from initiated Date: [] Patient: Joshua Adams 68 y/o M admitted on 08/14/18 for Confusion, SOB, Cough. Chief Complaint: [] Principal diagnosis: hypercalcemia Interval history: Slightly improved mentation, Ca, and GFR Volume expansion with non-oliguric renal failure A fib with RVR treated with cardioversion Pertinent ROS: Reviewed with patient and family Nothing to add to Initial findings Additional PMFSH (Level 3 Only): Reports no pre-existing renal issues Objective - Vital Signs Vital signs: Vital Signs Temp Pulse Resp BP Pulse Ox 08/15/18 18:01 133/67 96 08/15/18 16:31 99.0 F 157/83 92 08/15/18 16:04 145/84 94 08/15/18 15:31 164/82 98 08/15/18 15:16 160/77 96 08/15/18 15:01 157/79 96 08/15/18 14:46 161/80 97 08/15/18 14:31 154/81 93 08/15/18 14:16 155/82 95 08/15/18 14:11 153/91 97 08/15/18 14:06 149/89 98 08/15/18 14:01 148/75 86 L 08/15/18 14:00 101 H 17 148/89 92 08/15/18 13:56 153/74 96 08/15/18 13:55 93 H 23 H 148/75 92 08/15/18 13:51 175/104 97 08/15/18 13:50 92 H 22 175/104 95 08/15/18 13:46 148/124 08/15/18 13:45 95 H 25 H 148/124 96 08/15/18 13:42 154/87 91 08/15/18 13:30 105 H 18 156/83 94 08/15/18 13:01 156/83 08/15/18 12:20 99.6 F H 18 151/89 94 08/15/18 11:01 167/98 08/15/18 10:01 152/88 94 08/15/18 09:31 166/91 89 L 08/15/18 09:21 147/89 92 08/15/18 09:13 151/87 90 08/15/18 09:01 167/78 87 L 08/15/18 08:01 98.9 F 18 169/92 95 08/15/18 08:00 96 08/15/18 07:01 152/87 94 08/15/18 06:52 157/107 85 L 08/15/18 06:41 156/102 92 08/15/18 06:31 146/87 96 08/15/18 06:21 148/97 94 08/15/18 06:01 169/89 98 08/15/18 05:01 98 H 148/95 93 08/15/18 04:31 93 H 156/97 90 08/15/18 04:06 94 H 97 08/15/18 04:01 97.9 F 93 H 16 171/85 98 08/15/18 03:31 96 H 164/92 98 08/15/18 03:01 108 H 163/91 99 08/15/18 02:31 97 H 149/85 91 08/15/18 02:01 89 151/88 94 08/15/18 01:31 93 H 152/84 83 L 08/15/18 01:01 93 H 158/82 89 L 08/15/18 00:41 80 93 08/15/18 00:31 82 157/81 92 08/15/18 00:01 98.9 F 75 16 167/83 97 08/14/18 23:31 86 156/81 82 L 08/14/18 23:01 88 153/77 89 L 08/14/18 22:31 93 H 172/83 94 08/14/18 22:10 68 93 08/14/18 22:01 86 169/85 94 08/14/18 21:41 68 168/76 93 08/14/18 21:36 90 169/84 92 08/14/18 21:31 68 169/77 92 08/14/18 21:26 68 160/80 96 08/14/18 21:21 56 L 173/71 92 08/14/18 21:16 64 175/71 92 08/14/18 21:11 76 171/81 93 08/14/18 21:06 65 169/75 95 08/14/18 21:01 67 168/88 93 08/14/18 20:13 99.1 F H 72 16 186/84 94 Intake and Output 08/15/18 08/15/18 08/15/18 05:59 13:59 21:59 Intake Total 1999 290 1240 Output Total 1370 1150 350 Balance 630 -860 890 Intake: IV 1999 50 1000 Sodium Chloride 0.9% 1,000 ml @ 2000 250 mls/hr IV .Q4H [facility] Rx#: [id number] Oral 240 240 Output: Urine Catheter Amount 1370 1150 350 Other: Meal Breakfast Dinner Percent of Meal Consumed 75% 75% Urine Appearance Clear Clear Uretheral (Clifford) Sediment Urine Color Pale Pale Pale Uretheral (Clifford) Light Clarisa Weight 186 lb 6.4 oz Patient Weight 08/16/18 05:59 Weight 186 lb 6.4 oz Intake & Output: Intake & Output 08/15/18 08/15/18 08/15/18 05:59 13:59 21:59 Intake Total 1999 290 1240 Output Total 1370 1150 350 Balance 630 -860 890 Weight 186 lb 6.4 oz Intake: IV 1999 50 1000 Sodium Chloride 0.9% 1,000 ml @ 2000 250 mls/hr IV .Q4H [facility] Rx#: [id number] Oral 240 240 Output: Urine Catheter Amount 1370 1150 350 Other: Meal Breakfast Dinner Percent of Meal Consumed 75% 75% Urine Appearance Clear Clear Uretheral (Clifford) Sediment Urine Color Pale Pale Pale Uretheral (Clifford) Light Clarisa - General Appearance General appearance: appears started age, fatigue EENT: ATNC, PERRL, hearing intact, vision intact Neck: no JVD, no carotid bruit, supple Respiratory: rhonchi Cardiology: no murmurs, no rub, no gallops Gastrointestinal: normoactive bowel sounds, no tenderness, no guarding, no organomegaly, no masses Integumentary: no rash, warm and dry Neurologic: no focal deficit, no asterixis, confused Musculoskeletal: no deformities, no erythema, no cyanosis, no clubbing - Lab 08/15/18 03:40 08/15/18 15:00 Most recent lab results Calcium 12.8 mg/dl (8.6-10.4) H 08/15/18 15:00 Phosphorus 3.5 mg/dL (2.7-4.5) 08/15/18 03:40 Magnesium 1.4 mg/dL (1.6-2.5) L 08/15/18 03:40 - Imaging Kidney/bladder ultrasound: report reviewed - Allied health notes Allied health notes reviewed: nursing Assessment and Plan (1) Hypercalcemia 1. Continue NS at 125 cc/hr with goal of UOP > 100 cc/hr 2. Has received 2 doses of calcitonin with improvement 3. Both Pamidronate and denosumab are potential useful agents in this situation. 4. PTH is appropriatly suppressed 5. Awaiting PTH-related peptide and EZEQUIEL level for less likely causes of hypercalcemia Status: Acute Priority: High Comment: Calvarium lesions and CA = 17 with presumed ARF = myeloma related disease till proven otherwise (2) Acute renal failure syndrome 1. Dehydration is resolving but the effects of ACEi and NSAIDs could last 24-48 hours so waiting to see prediced improvement in GFR 2. Renal U/S without evidence of obstruction, nephrocalcinosis, or evidence of CKD Status: Acute Priority: High - Narrative A/P Narrative: The D/Dx for presumed ARF (no history of elevated SCr and prior U/A was bland and w/o proteinuria in EMR Dehydration Dehdration plus ACEi, thiazide and NSAIDs (ie pre-renal) Myeloma kidney - monitor GFR - Hydrate at lower rate of saline - Follow up labs if no inprovement in 72 hours to check for alternative causes of ARF
[2018-08-15] MEDS ORDERED: MELATONIN 3 MG TABLET PO SCH (19:30)
[2018-08-15] MEDS: traZODone HCL 50 MG TABLET PO SCH (19:53)
[2018-08-15] MEDS: SIMVASTATIN 10 MG TABLET PO SCH (19:53)
[2018-08-15] MEDS: oxyCODONE/APAP 5/325MG TABLET PO PRN ×2 (19:53→21:29)
[2018-08-15] MEDS: IMIPRAMINE 25 MG TABLET PO SCH (19:53)
[2018-08-15] MEDS: DIAZEPAM 5 MG TABLET PO PRN (21:29)
[2018-08-16] MEDS: 0.9 % SODIUM CHLORIDE 10 ML SYRINGE IV SCH ×3 (05:37→21:51)
--- NOTE | 2018-08-16 06:55 | Internal Med Progress Note ---
Medical - PN: Subj Patient information: Note initiated : 08/16/18 at 6:52 am Service Date, if different from initiated Date: [] Patient: Joshua Adams 68 y/o M admitted on 08/14/18 for Confusion, SOB, Cough. Chief Complaint: [] Interval history: Mr. Adams is a 68 year old M Who presents the ED with his for increased weakness confusion over the weekend. Per his seem to start Tuesday but especially Tuesday was noticeable when they were at a wedding and he was over sitting in chair by himself not talking to anybody in not communicating much with people who would interact with him. His said this is quite unusual as he is quite gregarious and is hard for him to not talk. He was unable to follow conversations and was not making sense. Tuesday was a little bit better but he is still confused. wanted to bring him into the hospital but he wanted to wait and see Dr. pavon. He called Dr. Solano's office on Tuesday and patient was unable to be seen on the same day so his brought him into the ED. Does have a bit of a dry cough and has some chest pain which is related to pleuritic chest pain anterior wall where he fell against a door jam in the bathroom. Feels he does not take a deep breath because of the pain. He is oxygenating well in the ED. Chest x-ray in the ED was unremarkable. He did have one episode nausea vomiting last night. She does feel foggy and admits to being extremely weak. He has a mild headache but no other complaints other than was mentioned above. In the ED he was evaluated for labs and imaging found to have a severe hypercalcemia at 17 renal failure with creatinine 3.[address] brain showed multiple lytic lesions throughout the school. Case was discussed with Dr. Carolyn sprague as this appears to be a case of multiple myeloma. We will follow along. Case was also discussed with bessemer converter operator who will follow along. Patient started on IV hydration in the ED. Has a history of chronic pain from lumbar cervical region of the spine. His chronic pain seems to have progressed over the past 6 months. 08/15 Slept well. Only complains of mild headache and chronic back pain. When in A. fib rate controlled last night. Calcium slowly coming down. Able to get calcitonin this morning. IV fluids. Patient underwent cardioversion for new onset atrial fibrillation overnight. Conscious sedation used with fentanyl and Versed. 100 J used patient converted to sinus rhythm thereafter. Tolerated the procedure well. 08/16 Poor sleep throughout the night. Talkative this morning. Still seems to have some confusion while having a conversation with him, but able to answer orientation questions without problem. Complains of mild headache and his chronic back pain. Review of Systems: denies fever/chills/nausea/vomiting/chest or abdominal pain/cough/dyspnea/diarrhea. Otherwise see above. - Constitutional Vitals: Vital Signs Temp Pulse Resp BP Pulse Ox 97.9 F 85 16 136/86 82 L 08/16/18 04:01 08/15/18 22:37 08/16/18 04:01 08/16/18 05:01 08/16/18 04:01 Period Temp Pulse Resp BP Sys/Katz Pulse Ox Last 24 Hr 97.9 F-99.6 F 85-105 16-25 131-175/57-124 82-98 Intake and Output 08/15/18 08/16/18 08/16/18 21:59 05:59 13:59 Intake Total 1490 1360 Output Total 350 900 Balance 1140 460 Weight 85.593 kg Intake & Output: Intake & Output 08/15/18 08/16/18 08/16/18 21:59 05:59 13:59 Intake Total 1490 1360 Output Total 350 900 Balance 1140 460 Weight 85.593 kg Intake: IV 1000 1000 Sodium Chloride 0.9% 1,000 ml @ 1000 125 mls/hr IV .Q8H [facility] Rx#: [id number] Oral 490 360 Output: Urine Catheter Amount 350 900 Other: Meal Dinner Percent of Meal Consumed 75% Urine Appearance Uretheral (Clifford) Sediment Urine Color Pale Exam: General: Alert, Awake, No acute Distress Eyes/N/T: EOMI, Head/Neck: neck supple, CV: RRR, 2/6 SM Pulm: Clear b/l, no wheezing/rhonchi/rales Abd: soft, nontender, +BS x4 Ext: no clubbing/cyanosis/edema Neuro: Alert, no focal deficits, moves all extremities, oriented x4 but still seems to have some confusion while proceeding with him Skin: warm/dry Medical - PN: Obj Da - Labs CBC & Chem 7: 08/15/18 03:40 08/15/18 15:00 Labs: Abnormal Lab Results 08/15/18 08/15/18 08/15/18 15:00 03:40 03:40 RBC Hgb Hct RDW Gran % Lymph % (Auto) Bollinger % (Auto) Lymph # (Auto) Bollinger # (Auto) Lymphocytes % Sodium Chloride 94 L BUN 40 H 34 H Creatinine 3.1 H 3.3 H Glucose 304 H 268 H Uric Acid 11.3 H Calcium 12.8 H 14.7 H* Magnesium 1.4 L Lactate Dehydrogenase 264 H C-Reactive Protein PTH Intact 8.8 L Urine Protein Urine Occult Blood Urine RBC Urine WBC Amorphous Crystals Hyaline Casts IgG IgM 08/15/18 08/14/18 08/14/18 03:40 18:39 18:37 RBC 4.05 L Hgb 12.1 L Hct 36.5 L RDW 15.6 H Gran % 95.0 H Lymph % (Auto) 4.4 L Bollinger % (Auto) 0.6 L Lymph # (Auto) 0.3 L Bollinger # (Auto) 0 L Lymphocytes % Sodium 132 L Chloride 92 L 94 L BUN 29 H 29 H Creatinine 3.6 H 3.2 H Glucose 247 H 242 H Uric Acid Calcium 16.3 H* 15.8 H* Magnesium Lactate Dehydrogenase C-Reactive Protein PTH Intact Urine Protein Urine Occult Blood Urine RBC Urine WBC Amorphous Crystals Hyaline Casts IgG IgM 08/14/18 08/14/18 08/14/18 11:25 10:45 10:45 RBC Hgb Hct RDW Gran % Lymph % (Auto) Bollinger % (Auto) Lymph # (Auto) Bollinger # (Auto) Lymphocytes % Sodium Chloride BUN Creatinine Glucose Uric Acid Calcium Magnesium Lactate Dehydrogenase C-Reactive Protein 3.2 H PTH Intact Urine Protein 100 A Urine Occult Blood 0.03 A Urine RBC 3 H Urine WBC 5 H Amorphous Crystals Mod A Hyaline Casts 7 H IgG 580 L IgM 9.7 L 08/14/18 08/14/18 10:45 10:45 RBC 3.95 L Hgb 11.9 L Hct 35.4 L RDW 15.3 H Gran % Lymph % (Auto) Bollinger % (Auto) Lymph # (Auto) Bollinger # (Auto) Lymphocytes % 6 L Sodium Chloride 93 L BUN 30 H Creatinine 3.4 H Glucose 195 H Uric Acid Calcium 17.0 H* Magnesium Lactate Dehydrogenase C-Reactive Protein PTH Intact Urine Protein Urine Occult Blood Urine RBC Urine WBC Amorphous Crystals Hyaline Casts IgG IgM Meds: Medications Albuterol/Ipratropium (Duoneb) 3 ml NEB Q4HP PRN PRN Reason: Shortness Of Breath Amlodipine Besylate (Norvasc) 10 mg PO DAILY [facility] Last Admin: 08/15/18 08:29 Dose: 10 mg Documented by: Aspirin (Aspirin) 81 mg PO DAILY [facility] Last Admin: 08/15/18 10:44 Dose: 81 mg Documented by: Dexamethasone (Decadron) 40 mg PO DAILY [facility] Stop: 08/17/18 09:01 Last Admin: 08/15/18 08:30 Dose: 40 mg Documented by: Diagnostic Test (Pha) (Accu-Chek) 1 each FS ACHS [facility] Last Admin: 08/15/18 19:52 Dose: 1 each Documented by: Diazepam (Valium) 5 mg PO BIDP PRN PRN Reason: Anxiety Last Admin: 08/15/18 21:29 Dose: 5 mg Documented by: Docusate Sodium (Colace) 100 mg PO BID [facility] Last Admin: 08/15/18 19:53 Dose: 100 mg Documented by: Famotidine (Pepcid) 20 mg PO BID [facility] Last Admin: 08/15/18 19:53 Dose: 20 mg Documented by: Heparin Sodium (Porcine) (Heparin) 5,000 unit SQ Q12 [facility] Last Admin: 08/15/18 19:52 Dose: 5,000 unit Documented by: Hydralazine HCl (Apresoline) 0 mg IV Q2HP PRN PRN Reason: Hypertension Potassium Chloride 40 meq/ (Dextrose) 520 mls @ 130 mls/hr IV UD PRN PRN Reason: Potassium < 3 Magnesium Sulfate (Magnesium Sulfate) 2 gm in 50 mls @ 50 mls/hr IV UD PRN PRN Reason: Magnesium </= 1.6 Last Infusion: 08/15/18 12:16 Dose: Infused Documented by: Sodium Chloride (Sodium Chloride 0.9%) 1,000 mls @ 125 mls/hr IV .Q8H [facility] Stop: 08/16/18 13:00 Last Admin: 08/15/18 22:57 Dose: 125 mls/hr Documented by: Imipramine HCl (Tofranil) 25 mg PO QHS [facility] Last Admin: 08/15/18 19:53 Dose: 25 mg Documented by: Insulin Glargine (Lantus) 10 unit SQ DAILY [facility] Insulin Human Lispro (Humalog) 0 unit SQ ACHS [facility]; Protocol Last Admin: 08/15/18 19:53 Dose: 9 unit Documented by: Labetalol HCl (Trandate) 0 mg IV Q2HP PRN PRN Reason: Hypertension Last Admin: 08/15/18 06:10 Dose: 10 mg Documented by: Lactulose (Cephulac) 10 gm PO DAILYP PRN PRN Reason: Constipation Melatonin (Melatonin 3mg Tablet) 3 mg PO [facility] Metoprolol Tartrate (Lopressor) 5 mg IV Q2HP PRN PRN Reason: Tachyarrhythmias HR>110 Last Admin: 08/15/18 15:45 Dose: 5 mg Documented by: Metoprolol Tartrate (Lopressor) 25 mg PO BID [facility] Last Admin: 08/15/18 19:53 Dose: 25 mg Documented by: Morphine Sulfate (Morphine) 0 mg IV Q3HP PRN PRN Reason: Pain Last Admin: 08/16/18 00:12 Dose: 2 mg Documented by: Ondansetron HCl (Zofran) 4 mg IV Q4HP PRN PRN Reason: Nausea And Vomiting Oxycodone/Acetaminophen (Percocet 5-325 Mg) 1 - 2 tab PO BIDP PRN PRN Reason: Pain Last Admin: 08/15/18 21:29 Dose: 1 tab Documented by: Sildenafil Citrate [ Revatio] 20 Mg Tablet 1 dose PO DAILY [facility] Last Admin: 08/15/18 08:30 Dose: Not Given Documented by: Polyethylene Glycol (Miralax) 17 gm PO DAILYP PRN PRN Reason: Constipation Potassium Chloride (Kdur) 40 meq PO UD PRN PRN Reason: Potssium is 3-3.5 Potassium Chloride (Kdur) 40 meq PO UD PRN PRN Reason: Potassium < 3 Promethazine HCl (Phenergan) 12.5 mg CO Q6HP PRN PRN Reason: Pain Senna (Senokot) 2 tab PO HSP PRN PRN Reason: Constipation Simvastatin (Zocor) 10 mg PO QPM [facility] Last Admin: 08/15/18 19:53 Dose: 10 mg Documented by: Sodium Chloride (Saline Flush) 10 ml IV Q8 [facility] Last Admin: 08/16/18 05:37 Dose: Not Given Documented by: Tamsulosin HCl (Flomax) 0.8 mg PO QDAY [facility] Last Admin: 08/15/18 08:29 Dose: 0.8 mg Documented by: Trazodone HCl (Desyrel) 50 mg PO QHS [facility] Last Admin: 08/15/18 19:53 Dose: 50 mg Documented by: Medical - PN: A/P - Time Spent With Patient Total time spent is greater than 50% in coordination of care (as documented) at patient's floor/unit and/or counseling patient: - Narrative A/P Narrative: A: *Hypercalcemia, symptomatic: Highly suspicious for multiple myeloma -P<14.7<17 *Cranial lytic lesions: 2/2 likely multiple myeloma -skeletal survey with cranial lesions only, T11 comp Fx chronic *PETTY: 2/2 above + meds - *NCNC Anemia: 2/2 above *Encephalopathy, metabolic: 2/2 above, slowly improving *DM: *HTN/HLD: *Anxiety: *Chronic pain: *Afib, new, rate controlled: 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 -No Sinus -echo *h/o JOSS but does not tolerated CPAP 2/2 Sjogren's: *Sjogren's: P: -IVF, prn lasix if needed for volume overload -Denosumab, calcitonin given -f/u chemistry -Nephrology following -Dr. Leon (heme/onc) consulted -Dexamethasone 40mg qd x4 -SPEP/UPEP w/immunofix, Qaunt Ig, Free light chain, B2M pending -cont isabel norvasc, hold ACEI/HCTZ, prn med -Lopressor started -d/c Vit D supp and HCTZ -SSI, hold metformin -pt/ot -ppx: heparin Medical - PN: Qual - VTE Deep Vein Thrombosis/Pulmonary Embolism Present on Admission: No
[2018-08-16] MEDS ORDERED: POLYETHYLENE GLYCOL 3350 17 GM PACKET PO ONE (08:25)
[2018-08-16] MEDS ORDERED: INSULIN GLARGINE, HUMAN 1 UNIT/0.01 ML SQ SCH (09:00)
[2018-08-16] MEDS: HEPARIN 5,000 UNIT/ML VIAL SQ SCH ×2 (09:56→21:50)
[2018-08-16] MEDS: INSULIN LISPRO 1 UNIT/0.01 ML UNIT SQ SCH ×4 (09:57→21:50)
[2018-08-16] MEDS: amLODIPine 10 MG TABLET PO SCH (09:57)
[2018-08-16] MEDS: DOCUSATE SODIUM 100 MG CAPSULE PO SCH ×3 (09:57→23:07)
[2018-08-16] MEDS: METOPROLOL TARTRATE 25 MG TABLET PO SCH ×3 (09:57→23:07)
[2018-08-16] MEDS: TAMSULOSIN 0.4 MG CAPSULE PO SCH (09:57)
[2018-08-16] MEDS: ASPIRIN 81 MG TAB.CHEW PO SCH (09:57)
[2018-08-16] MEDS ORDERED: HALOPERIDOL LACTATE 5 MG/ML VIAL IV ONE (09:58)
[2018-08-16] MEDS: SILDENAFIL CITRATE 20 MG PO SCH (09:58)
[2018-08-16] MEDS: 0.9 % SODIUM CHLORIDE 1,000 ML IV SCH ×4 (09:59→21:02)
[2018-08-16] MEDS: FAMOTIDINE 20 MG TABLET PO SCH ×3 (10:02→23:07)
[2018-08-16] MEDS: DIAZEPAM 5 MG TABLET PO PRN (10:02)
[2018-08-16] MEDS: oxyCODONE/APAP 5/325MG TABLET PO PRN ×2 (10:06→21:49)
[2018-08-16] MEDS: DEXAMETHASONE 4 MG TABLET PO SCH (10:31)
[2018-08-16 10:36] LABS: ALT/SGPT 24 U/l (0-40); AST/SGOT 26 U/l (0-37); Albumin 3.8 gm/dL (3.2-5.2); Albumin/Globulin Ratio 1.4 (1.0-2.3); Alkaline Phosphatase 69 U/L (39-117); Bilirubin,Direct < 0.2 mg/dL (0.0-0.3); Bilirubin,Total 0.3 mg/dL (0.0-1.0); Blood Urea Nitrogen 51 mg/dl (8-23); Calcium 11.5 mg/dl (8.6-10.4); Carbon Dioxide 23 mmol/L (22-30); Chloride 99 mmol/L (96-108); Globulin 2.7 gm/dL (2.2-3.7); Glomerular Filtration Rate 22; Glucose 217 mg/dL (70-105); Lactate Dehydrogenase 286 U/L (94-250); Magnesium 1.5 mg/dL (1.6-2.5); Phosphorous 3.2 mg/dL (2.7-4.5); Potassium 3.6 mmol/L (3.3-5.1); Sodium 138 mmol/L (133-145); Triglycerides 121 mg/dl (<150); Uric Acid 11.2 mg/dL (2.5-8.0)
[2018-08-16] MEDS ORDERED: MAGNESIUM SULFATE 2 GM/50 ML BAG IV ONE (10:41)
[2018-08-16] MEDS ORDERED: INSULIN GLARGINE, HUMAN 1 UNIT/0.01 ML SQ ONE (10:50)
--- NOTE | 2018-08-16 16:54 | Nephrology Progress Note ---
Subjective Patient information: Note initiated : 08/16/18 at 4:52 pm Service Date, if different from initiated Date: [] Patient: Joshua Adams 68 y/o M admitted on 08/14/18 for Confusion, SOB, Cough. Chief Complaint: [] Principal diagnosis: hypercalcemia Interval history: Slow improvent in labs. Needs agent for nursing home reduction in Ca+2. Prolia is safer than ZA given decreased GFR and no bone pain. Waiting on results of diagnostic labs for myeloma Pertinent ROS: Sleeping after sedation for MRI but this was cancelled due to presence of DRS for low back pain Additional PMFSH (Level 3 Only): Nothing new Objective - Vital Signs Vital signs: Vital Signs Temp Pulse Resp BP BP BP Pulse Ox 08/16/18 16:01 97.3 F 16 140/81 97 08/16/18 15:01 149/84 94 08/16/18 14:01 149/82 92 08/16/18 12:07 98.5 F 16 150/81 95 08/16/18 08:00 80 16 95 08/16/18 07:21 96.8 F L 18 140/77 96 08/16/18 06:01 141/112 93 08/16/18 05:01 136/86 08/16/18 04:01 97.9 F 16 151/87 82 L 08/16/18 03:01 140/77 08/16/18 02:01 148/76 98 08/16/18 01:01 149/77 91 08/16/18 00:01 131/77 08/15/18 23:48 149/81 89 L 08/15/18 23:44 98.8 F 22 149/81 86 L 08/15/18 23:01 132/57 08/15/18 22:37 98.8 F 85 18 139/72 139/72 88 L 08/15/18 19:49 157/79 08/15/18 19:45 99.1 F H 89 22 157/79 92 08/15/18 19:01 153/80 08/15/18 18:01 133/67 96 Intake and Output 08/16/18 08/16/18 08/16/18 05:59 13:59 21:59 Intake Total 1360 1120 50 Output Total 900 375 Balance 460 1120 -325 Intake: IV 1000 1000 50 Sodium Chloride 0.9% 1,000 ml @ 1000 1000 125 mls/hr IV .Q8H [facility] Rx#: [id number] Oral 360 120 Output: Urine Catheter Amount 900 Void Amount 375 Other: Meal Breakfast Percent of Meal Consumed 100% Feeding Ability Independent Urine Appearance Clear Uretheral (Clifford) Clear Urine Color Bright Yellow Uretheral (Clifford) Bright Yellow Urine Odor Normal Uretheral (Clifford) Normal Intake & Output: Intake & Output 08/16/18 08/16/18 08/16/18 05:59 13:59 21:59 Intake Total 1360 1120 50 Output Total 900 375 Balance 460 1120 -325 Intake: IV 1000 1000 50 Sodium Chloride 0.9% 1,000 ml @ 1000 1000 125 mls/hr IV .Q8H [facility] Rx#: [id number] Oral 360 120 Output: Urine Catheter Amount 900 Void Amount 375 Other: Meal Breakfast Percent of Meal Consumed 100% Feeding Ability Independent Urine Appearance Clear Uretheral (Clifford) Clear Urine Color Bright Yellow Uretheral (Clifford) Bright Yellow Urine Odor Normal Uretheral (Clifford) Normal - General Appearance General appearance: well-developed, well-nourished EENT: ATNC, PERRL, mucous membranes dry Neck: no JVD, no thyromegaly, no carotid bruit Respiratory: no kyphosis, no scoliosis Cardiology: no murmurs, no rub, no gallops, no edema, regular rate, regular rhythm Gastrointestinal: normoactive bowel sounds, no tenderness Integumentary: no rash, warm and dry Neurologic: no focal deficit, disoriented Musculoskeletal: no cyanosis, no clubbing - Lab 08/15/18 03:40 08/16/18 07:38 Most recent lab results Calcium 11.5 mg/dl (8.6-10.4) H 08/16/18 07:38 Phosphorus 3.2 mg/dL (2.7-4.5) 08/16/18 07:38 Magnesium 1.5 mg/dL (1.6-2.5) L 08/16/18 07:38 - Imaging Kidney/bladder ultrasound: report reviewed - Allied health notes Allied health notes reviewed: nursing Assessment and Plan (1) Hypercalcemia 1. Continue NS at 125 cc/hr with goal of UOP > 100 cc/hr 2. Has received 2 doses of calcitonin with improvement to 11 3. Both Pamidronate and denosumab are potential useful agents in this situation, but will use denosumab due to elevated creatinine. 4. PTH is appropriatly suppressed 5. Awaiting PTH-related peptide and EZEQUIEL level for less likely causes of hypercalcemia Status: Acute Priority: High Comment: Calvarium lesions and CA = 17 with presumed ARF = myeloma related disease till proven otherwise (2) Acute renal failure syndrome 1. Dehydration is resolving but the effects of ACEi and NSAIDs could last 24-48 hours so waiting to see prediced improvement in GFR 2. Renal U/S without evidence of obstruction, nephrocalcinosis, or evidence of CKD 3. Give Prolia to further decrease calcium 4. Continue NS at 125 cc/hr Status: Acute Priority: High - Narrative A/P Narrative: The D/Dx for presumed ARF (no history of elevated SCr and prior U/A was bland and w/o proteinuria in EMR Dehydration Dehdration plus ACEi, thiazide and NSAIDs (ie pre-renal) Myeloma kidney - monitor GFR - Hydrate at lower rate of saline - Follow up labs if no inprovement in 72 hours to check for alternative causes of ARF Prolia tonight Outpatient heme/onc evaluation and treatment Continue IVF to maintain UOP ~100 cc/hr
[2018-08-16] MEDS: traZODone HCL 50 MG TABLET PO SCH ×2 (21:49→23:07)
[2018-08-16] MEDS: MELATONIN 3 MG TABLET PO SCH ×2 (21:49→23:07)
[2018-08-16] MEDS: SIMVASTATIN 10 MG TABLET PO SCH ×2 (21:49→23:08)
[2018-08-16] MEDS: IMIPRAMINE 25 MG TABLET PO SCH ×2 (21:49→23:08)
[2018-08-17] MEDS: oxyCODONE/APAP 5/325MG TABLET PO PRN ×3 (01:21→21:59)
[2018-08-17] MEDS: 0.9 % SODIUM CHLORIDE 1,000 ML IV SCH ×3 (02:54→14:10)
[2018-08-17] MEDS: 0.9 % SODIUM CHLORIDE 10 ML SYRINGE IV SCH ×3 (05:06→21:30)
[2018-08-17 06:08] LABS: ALT/SGPT 35 U/l (0-40); AST/SGOT 30 U/l (0-37); Albumin 3.3 gm/dL (3.2-5.2); Albumin/Globulin Ratio 1.4 (1.0-2.3); Alkaline Phosphatase 67 U/L (39-117); Bilirubin,Direct < 0.2 mg/dL (0.0-0.3); Bilirubin,Total 0.2 mg/dL (0.0-1.0); Blood Urea Nitrogen 49 mg/dl (8-23); Calcium 9.4 mg/dl (8.6-10.4); Carbon Dioxide 22 mmol/L (22-30); Chloride 106 mmol/L (96-108); Globulin 2.4 gm/dL (2.2-3.7); Glomerular Filtration Rate 32; Glucose 203 mg/dL (70-105); Lactate Dehydrogenase 252 U/L (94-250); Magnesium 1.8 mg/dL (1.6-2.5); Phosphorous 2.3 mg/dL (2.7-4.5); Potassium 3.6 mmol/L (3.3-5.1); Sodium 141 mmol/L (133-145); Triglycerides 101 mg/dl (<150); Uric Acid 9.4 mg/dL (2.5-8.0)
--- NOTE | 2018-08-17 07:22 | Internal Med Progress Note ---
Medical - PN: Subj Patient information: Note initiated : 08/17/18 at 7:18 am Service Date, if different from initiated Date: [] Patient: Joshua Adams 68 y/o M admitted on 08/14/18 for Confusion, SOB, Cough. Chief Complaint: [] Interval history: Mr. Adams is a 68 year old M Who presents the ED with his for increased weakness confusion over the weekend. Per his seem to start Tuesday but especially Tuesday was noticeable when they were at a wedding and he was over sitting in chair by himself not talking to anybody in not communicating much with people who would interact with him. His said this is quite unusual as he is quite gregarious and is hard for him to not talk. He was unable to follow conversations and was not making sense. Tuesday was a little bit better but he is still confused. wanted to bring him into the hospital but he wanted to wait and see Dr. pavon. He called Dr. Solano's office on Tuesday and patient was unable to be seen on the same day so his brought him into the ED. Does have a bit of a dry cough and has some chest pain which is related to pleuritic chest pain anterior wall where he fell against a door jam in the bathroom. Feels he does not take a deep breath because of the pain. He is oxygenating well in the ED. Chest x-ray in the ED was unremarkable. He did have one episode nausea vomiting last night. She does feel foggy and admits to being extremely weak. He has a mild headache but no other complaints other than was mentioned above. In the ED he was evaluated for labs and imaging found to have a severe hypercalcemia at 17 renal failure with creatinine 3.[address] brain showed multiple lytic lesions throughout the school. Case was discussed with Dr. Carolyn sprague as this appears to be a case of multiple myeloma. We will follow along. Case was also discussed with tipping machine operator automatic who will follow along. Patient started on IV hydration in the ED. Has a history of chronic pain from lumbar cervical region of the spine. His chronic pain seems to have progressed over the past 6 months. 08/15 Slept well. Only complains of mild headache and chronic back pain. When in A. fib rate controlled last night. Calcium slowly coming down. Able to get calcitonin this morning. IV fluids. Patient underwent cardioversion for new onset atrial fibrillation overnight. Conscious sedation used with fentanyl and Versed. 100 J used patient converted to sinus rhythm thereafter. Tolerated the procedure well. 08/16 Poor sleep throughout the night. Talkative this morning. Still seems to have some confusion while having a conversation with him, but able to answer orientation questions without problem. Complains of mild headache and his chronic back pain. 08/17 No overnight events. But better last night. Only complains of a little bit of a cough. Mentation improved today. Laboratory work improved Review of Systems: denies fever/chills/nausea/vomiting/chest or abdominal pain/dyspnea/diarrhea. Otherwise see above. - Constitutional Vitals: Vital Signs Temp Pulse Resp BP Pulse Ox 98.8 F 80 18 150/95 91 08/17/18 04:04 08/16/18 08:00 08/16/18 23:50 08/17/18 01:01 08/17/18 04:04 Period Temp Pulse Resp BP Sys/Katz Pulse Ox Last 24 Hr 96.8 F-99.2 F 80 16-22 140-172/77-105 91-100 Intake and Output 08/16/18 08/17/18 08/17/18 21:59 05:59 13:59 Intake Total 50 1340 Output Total 675 975 Balance -625 365 Weight 87.317 kg Intake & Output: Intake & Output 08/16/18 08/17/18 08/17/18 21:59 05:59 13:59 Intake Total 50 1340 Output Total 675 975 Balance -625 365 Weight 87.317 kg Intake: IV 50 1000 Sodium Chloride 0.9% 1,000 ml @ 1000 125 mls/hr IV .Q8H [facility] Rx#: [id number] Oral 340 Output: Void Amount 675 975 Other: Urine Appearance Clear Urine Color Light Clarisa Exam: General: Alert, Awake, No acute Distress Eyes/N/T: EOMI, Head/Neck: neck supple, CV: RRR, 2/6 SM Pulm: Clear b/l, no wheezing/rhonchi/rales Abd: soft, nontender, +BS x4 Ext: no clubbing/cyanosis/edema Neuro: Alert, no focal deficits, moves all extremities, mentation improving each more clear and seems to answer questions more easily and not rambling at any time, A&O x4 Skin: warm/dry Medical - PN: Obj Da - Labs CBC & Chem 7: 08/15/18 03:40 08/17/18 03:40 Labs: Abnormal Lab Results 08/17/18 08/16/18 08/15/18 03:40 07:38 15:00 RBC Hgb Hct RDW Gran % Lymph % (Auto) [place] % (Auto) Lymph # (Auto) [place] # (Auto) Lymphocytes % Sodium Chloride BUN 49 H 51 H 40 H Creatinine 2.1 H 2.8 H 3.1 H Glucose 203 H 217 H 304 H Uric Acid 9.4 H 11.2 H Calcium 11.5 H 12.8 H Phosphorus 2.3 L Magnesium 1.5 L Lactate Dehydrogenase 252 H 286 H C-Reactive Protein Total Protein 5.7 L PTH Intact Urine Protein Urine Occult Blood Urine RBC Urine WBC Amorphous Crystals Hyaline Casts IgG IgM 08/15/18 08/15/18 08/15/18 03:40 03:40 03:40 RBC 4.05 L Hgb 12.1 L Hct 36.5 L RDW 15.6 H Gran % 95.0 H Lymph % (Auto) 4.4 L [place] % (Auto) 0.6 L Lymph # (Auto) 0.3 L [place] # (Auto) 0 L Lymphocytes % Sodium Chloride 94 L BUN 34 H Creatinine 3.3 H Glucose 268 H Uric Acid 11.3 H Calcium 14.7 H* Phosphorus Magnesium 1.4 L Lactate Dehydrogenase 264 H C-Reactive Protein Total Protein PTH Intact 8.8 L Urine Protein Urine Occult Blood Urine RBC Urine WBC Amorphous Crystals Hyaline Casts IgG IgM 08/14/18 08/14/18 08/14/18 18:39 18:37 11:25 RBC Hgb Hct RDW Gran % Lymph % (Auto) [place] % (Auto) Lymph # (Auto) [place] # (Auto) Lymphocytes % Sodium 132 L Chloride 92 L 94 L BUN 29 H 29 H Creatinine 3.6 H 3.2 H Glucose 247 H 242 H Uric Acid Calcium 16.3 H* 15.8 H* Phosphorus Magnesium Lactate Dehydrogenase C-Reactive Protein Total Protein PTH Intact Urine Protein 100 A Urine Occult Blood 0.03 A Urine RBC 3 H Urine WBC 5 H Amorphous Crystals Mod A Hyaline Casts 7 H IgG IgM 08/14/18 08/14/18 08/14/18 10:45 10:45 10:45 RBC Hgb Hct RDW Gran % Lymph % (Auto) [place] % (Auto) Lymph # (Auto) [place] # (Auto) Lymphocytes % Sodium Chloride 93 L BUN 30 H Creatinine 3.4 H Glucose 195 H Uric Acid Calcium 17.0 H* Phosphorus Magnesium Lactate Dehydrogenase C-Reactive Protein 3.2 H Total Protein PTH Intact Urine Protein Urine Occult Blood Urine RBC Urine WBC Amorphous Crystals Hyaline Casts IgG 580 L IgM 9.7 L 08/14/18 10:45 RBC 3.95 L Hgb 11.9 L Hct 35.4 L RDW 15.3 H Gran % Lymph % (Auto) [place] % (Auto) Lymph # (Auto) [place] # (Auto) Lymphocytes % 6 L Sodium Chloride BUN Creatinine Glucose Uric Acid Calcium Phosphorus Magnesium Lactate Dehydrogenase C-Reactive Protein Total Protein PTH Intact Urine Protein Urine Occult Blood Urine RBC Urine WBC Amorphous Crystals Hyaline Casts IgG IgM Meds: Medications Albuterol/Ipratropium (Duoneb) 3 ml NEB Q4HP PRN PRN Reason: Shortness Of Breath Amlodipine Besylate (Norvasc) 10 mg PO DAILY [facility] Last Admin: 08/16/18 09:57 Dose: 10 mg Documented by: Aspirin (Aspirin) 81 mg PO DAILY [facility] Last Admin: 08/16/18 09:57 Dose: 81 mg Documented by: Dexamethasone (Decadron) 40 mg PO DAILY [facility] Stop: 08/17/18 09:01 Last Admin: 08/16/18 10:31 Dose: 40 mg Documented by: Diagnostic Test (Pha) (Accu-Chek) 1 each FS ACHS [facility] Last Admin: 08/16/18 21:50 Dose: 1 each Documented by: Diazepam (Valium) 5 mg PO BIDP PRN PRN Reason: Anxiety Last Admin: 08/16/18 10:02 Dose: 5 mg Documented by: Docusate Sodium (Colace) 100 mg PO BID [facility] Last Admin: 08/16/18 23:07 Dose: Not Given Documented by: Famotidine (Pepcid) 20 mg PO BID [facility] Last Admin: 08/16/18 23:07 Dose: Not Given Documented by: Heparin Sodium (Porcine) (Heparin) 5,000 unit SQ Q12 [facility] Last Admin: 08/16/18 21:50 Dose: 5,000 unit Documented by: Hydralazine HCl (Apresoline) 0 mg IV Q2HP PRN PRN Reason: Hypertension Potassium Chloride 40 meq/ (Dextrose) 520 mls @ 130 mls/hr IV UD PRN PRN Reason: Potassium < 3 Magnesium Sulfate (Magnesium Sulfate) 2 gm in 50 mls @ 50 mls/hr IV UD PRN PRN Reason: Magnesium </= 1.6 Last Infusion: 08/15/18 12:16 Dose: Infused Documented by: Sodium Chloride (Sodium Chloride 0.9%) 1,000 mls @ 125 mls/hr IV .Q8H [facility] Stop: 08/17/18 17:14 Last Admin: 08/17/18 05:07 Dose: 125 mls/hr Documented by: Imipramine HCl (Tofranil) 25 mg PO QHS [facility] Last Admin: 08/16/18 23:08 Dose: Not Given Documented by: Insulin Glargine (Lantus) 20 unit SQ DAILY [facility] Insulin Human Lispro (Humalog) 0 unit SQ ACHS [facility]; Protocol Last Admin: 08/16/18 21:50 Dose: 6 unit Documented by: Labetalol HCl (Trandate) 0 mg IV Q2HP PRN PRN Reason: Hypertension Last Admin: 08/15/18 06:10 Dose: 10 mg Documented by: Lactulose (Cephulac) 10 gm PO DAILYP PRN PRN Reason: Constipation Melatonin (Melatonin 3mg Tablet) 3 mg PO QHS [facility] Last Admin: 08/16/18 23:07 Dose: Not Given Documented by: Metoprolol Tartrate (Lopressor) 5 mg IV Q2HP PRN PRN Reason: Tachyarrhythmias HR>110 Last Admin: 08/15/18 15:45 Dose: 5 mg Documented by: Metoprolol Tartrate (Lopressor) 25 mg PO BID [facility] Last Admin: 08/16/18 23:07 Dose: Not Given Documented by: Morphine Sulfate (Morphine) 0 mg IV Q3HP PRN PRN Reason: Pain Last Admin: 08/16/18 00:12 Dose: 2 mg Documented by: Ondansetron HCl (Zofran) 4 mg IV Q4HP PRN PRN Reason: Nausea And Vomiting Oxycodone/Acetaminophen (Percocet 5-325 Mg) 1 - 2 tab PO BIDP PRN PRN Reason: Pain Last Admin: 08/17/18 01:21 Dose: 2 tab Documented by: Sildenafil Citrate [ Revatio] 20 Mg Tablet 1 dose PO DAILY [facility] Last Admin: 08/16/18 09:58 Dose: Not Given Documented by: Polyethylene Glycol (Miralax) 17 gm PO DAILYP PRN PRN Reason: Constipation Potassium Chloride (Kdur) 40 meq PO UD PRN PRN Reason: Potssium is 3-3.5 Potassium Chloride (Kdur) 40 meq PO UD PRN PRN Reason: Potassium < 3 Promethazine HCl (Phenergan) 12.5 mg MT Q6HP PRN PRN Reason: Pain Senna (Senokot) 2 tab PO HSP PRN PRN Reason: Constipation Simvastatin (Zocor) 10 mg PO QPM [facility] Last Admin: 08/16/18 23:08 Dose: Not Given Documented by: Sodium Chloride (Saline Flush) 10 ml IV Q8 [facility] Last Admin: 08/17/18 05:06 Dose: Not Given Documented by: Tamsulosin HCl (Flomax) 0.8 mg PO QDAY [facility] Last Admin: 08/16/18 09:57 Dose: 0.8 mg Documented by: Trazodone HCl (Desyrel) 50 mg PO QHS [facility] Last Admin: 08/16/18 23:07 Dose: Not Given Documented by: Medical - PN: A/P - Time Spent With Patient Total time spent is greater than 50% in coordination of care (as documented) at patient's floor/unit and/or counseling patient: - Narrative A/P Narrative: A: *Hypercalcemia, symptomatic: Highly suspicious for multiple myeloma -Resolved *Cranial lytic lesions: 2/2 likely multiple myeloma -skeletal survey with cranial lesions only, T11 comp Fx chronic *PETTY: 2/2 above + meds -2.1<<<3.4 *NCNC Anemia: 2/2 above *Encephalopathy, metabolic: 2/2 above, improving *DM: *HTN/HLD: *Anxiety: *Chronic pain: *Afib, new, rate controlled: 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 -No Sinus -echo no sig abn, no LA enlargement *h/o JOSS but does not tolerated CPAP 2/2 Sjogren's: *Sjogren's: P: -IVF, prn lasix if needed for volume overload -Nephrology following -Denosumab, calcitonin given -f/u chemistry -Dr. Leon (heme/onc) consulted -Dexamethasone 40mg qd x4 -SPEP/UPEP w/immunofix, Qaunt Ig, Free light chain, B2M pending -cont isabel norvasc, hold ACEI/HCTZ, prn med -Lopressor started bid -d/c Vit D supp and HCTZ -SSI, hold metformin, added basal insulin while on high dose steroids -pt/ot -ppx: heparin Medical - PN: Qual - VTE Deep Vein Thrombosis/Pulmonary Embolism Present on Admission: No
[2018-08-17] MEDS: INSULIN GLARGINE, HUMAN 1 UNIT/0.01 ML SQ SCH (08:08)
[2018-08-17] MEDS: amLODIPine 10 MG TABLET PO SCH (08:09)
[2018-08-17] MEDS: TAMSULOSIN 0.4 MG CAPSULE PO SCH (08:09)
[2018-08-17] MEDS: DEXAMETHASONE 4 MG TABLET PO SCH (08:09)
[2018-08-17] MEDS: INSULIN LISPRO 1 UNIT/0.01 ML UNIT SQ SCH ×4 (08:09→21:00)
[2018-08-17] MEDS: METOPROLOL TARTRATE 25 MG TABLET PO SCH ×2 (08:10→20:18)
[2018-08-17] MEDS: HEPARIN 5,000 UNIT/ML VIAL SQ SCH ×2 (08:10→20:19)
[2018-08-17] MEDS: ASPIRIN 81 MG TAB.CHEW PO SCH (08:10)
[2018-08-17] MEDS: DOCUSATE SODIUM 100 MG CAPSULE PO SCH ×2 (08:10→20:18)
[2018-08-17] MEDS: SILDENAFIL CITRATE 20 MG PO SCH (08:10)
[2018-08-17] MEDS: FAMOTIDINE 20 MG TABLET PO SCH ×2 (08:10→20:18)
[2018-08-17] MEDS ORDERED: DENOSUMAB 60 MG/ML SYRINGE SQ ONE (08:23)
[2018-08-17 08:27] LABS: Lambda Free Light Chains 10.02 mg/L (5.71-26.30)
[2018-08-17] MEDS ORDERED: INSULIN GLARGINE, HUMAN 1 UNIT/0.01 ML SQ SCH (09:00)
--- NOTE | 2018-08-17 11:06 | Discharge Summary ---
Medical - DS: Prov Patient information: Note initiated : 08/17/18 at 10:53 am Service Date, if different from initiated Date: [] Patient: Joshua Adams 68 y/o M admitted on 08/14/18 for Confusion, SOB, Cough. Chief Complaint: [] Date of admission: 08/14/18 14:20 Discharge date: 08/18/18 Primary care physician: Deborah Garcia Consults: 08/14/18 Consult to Physician [CONS] Stat Comment: Consulting Provider: Dawit Easley Reason For Exam: Physician to Consult 08/14/18 14:24 Consult to Physician [CONS] Routine Comment: Consulting Provider: Bhavin Leon Reason For Exam: Physician to Consult Consult to Physician [CONS] Routine Comment: Consulting Provider: Ethan Jose Reason For Exam: Physician to Consult Medical - DS: Meds - Discharge Medications Prescriptions: amLODIPine [Norvasc] 10 mg PO DAILY #30 tab Carvedilol [Coreg] 6.25 mg PO BIDCC #60 tab Furosemide [Lasix] 20 mg PO DAILY #30 tab Insulin Lispro [Insulin Lispro Kwikpen U-100] See Protocol SQ ACHS #2 insuln.pen Linagliptin [Tradjenta] 2.5 mg PO DAILY #20 tab Active and Home Medications: Home Medications diazepam 5 mg tablet 5 mg PO BID PRN 05/18/17 [History Confirmed 08/14/18 Last Taken Unknown] hydrochlorothiazide 12.5 mg capsule 12.5 mg PO QDAY 05/18/17 [History Confirmed 08/14/18 Last Taken Unknown] linagliptin 2.5 mg-metformin 1,000 mg tablet 1 tab PO BID 05/18/17 [History Confirmed 08/14/18 Last Taken Unknown] meloxicam 15 mg tablet 15 mg PO QDAY PRN 05/18/17 [History Confirmed 08/14/18 Last Taken Unknown] niacin ER 500 mg tablet,extended release 24 hr 500 mg PO BID tab 05/18/17 [History Confirmed 08/14/18 Last Taken Unknown] oxycodone-acetaminophen 5 mg-325 mg tablet 1 - 2 tab PO BID PRN tab 05/18/17 [History Confirmed 08/14/18 Last Taken Unknown] ropinirole 1 mg tablet 1 mg PO .COMPLEX 05/18/17 [History Confirmed 08/14/18 Last Taken Unknown] simvastatin 10 mg tablet 10 mg PO QPM 05/18/17 [History Confirmed 08/14/18 Last Taken Unknown] amlodipine 10 mg-benazepril 20 mg capsule 1 cap PO QDAY 05/26/17 [History Confirmed 08/14/18 Last Taken Unknown] trazodone 50 mg tablet 50 mg PO QHS 05/26/17 [History Confirmed 08/14/18 Last Taken Unknown] imipramine 25 mg tablet 25 mg PO QHS #30 tab 04/20/18 [Rx Confirmed 08/14/18 Last Taken Unknown] tamsulosin 0.4 mg capsule 0.8 mg PO QDAY #60 cap 04/20/18 [Rx Confirmed 08/14/18 Last Taken Unknown] Chlorhexidine Gluconate [Paroex] 15 ml .ROUTE BID 08/14/18 [History Confirmed 08/14/18 Last Taken Unknown] [place]-3/Dha/Epa/Fish Oil [Fish Oil 1,000 mg Softgel] 1 each PO QDAY 08/14/18 [History Confirmed 08/14/18 Last Taken Unknown] Sildenafil Citrate [Revatio] 100 mg PO DAILY 08/14/18 [History Confirmed 08/14/18 Last Taken Unknown] Home Medications diazepam 5 mg tablet 5 mg PO BID PRN 05/18/17 [History Confirmed 08/14/18 Last Taken Unknown] niacin ER 500 mg tablet,extended release 24 hr 500 mg PO BID tab 05/18/17 [History Confirmed 08/14/18 Last Taken Unknown] oxycodone-acetaminophen 5 mg-325 mg tablet 1 - 2 tab PO BID PRN tab 05/18/17 [History Confirmed 08/14/18 Last Taken Unknown] ropinirole 1 mg tablet 1 mg PO .COMPLEX 05/18/17 [History Confirmed 08/14/18 Last Taken Unknown] simvastatin 10 mg tablet 10 mg PO QPM 05/18/17 [History Confirmed 08/14/18 Last Taken Unknown] trazodone 50 mg tablet 50 mg PO QHS 05/26/17 [History Confirmed 08/14/18 Last Taken Unknown] imipramine 25 mg tablet 25 mg PO QHS #30 tab 04/20/18 [Rx Confirmed 08/14/18 Last Taken Unknown] tamsulosin 0.4 mg capsule 0.8 mg PO QDAY #60 cap 04/20/18 [Rx Confirmed 08/14/18 Last Taken Unknown] Chlorhexidine Gluconate [Paroex] 15 ml .ROUTE BID 08/14/18 [History Confirmed 08/14/18 Last Taken Unknown] [place]-3/Dha/Epa/Fish Oil [Fish Oil 1,000 mg Softgel] 1 each PO QDAY 08/14/18 [History Confirmed 08/14/18 Last Taken Unknown] Sildenafil Citrate [Revatio] 100 mg PO DAILY 08/14/18 [History Confirmed 08/14/18 Last Taken Unknown] Insulin Lispro [Insulin Lispro Kwikpen U-100] See Protocol SQ ACHS #2 insuln.pen 08/17/18 [Rx Last Taken Unknown] Linagliptin [Tradjenta] 2.5 mg PO DAILY #20 tab 08/17/18 [Rx Last Taken Unknown] amLODIPine [Norvasc] 10 mg PO DAILY #30 tab 08/17/18 [Rx Last Taken Unknown] Carvedilol [Coreg] 6.25 mg PO BIDCC #60 tablet 08/18/18 [Rx Last Taken Unknown] ACEI held while renal function stabilizing. HCTZ stopped for hypercalcemia - change HCTZ to Lasix Lopressor given brief episode of A. fib but changed to Coreg for better BP control Metformin held for renal failure, sliding scale insulin added for now, along with the home linagliptin Medical - DS: Hosp Hospital course: Mr. Adams is a 68 year old M Mr. Adams is a 68 year old M Who presents the ED with his for increased weakness confusion over the weekend. Per his seem to start Tuesday but especially Tuesday was noticeable when they were at a wedding and he was over sitting in chair by himself not talking to anybody in not communicating much with people who would interact with him. His said this is quite unusual as he is quite gregarious and is hard for him to not talk. He was unable to follow conversations and was not making sense. Tuesday was a little bit better but he is still confused. wanted to bring him into the hospital but he wanted to wait and see Dr. pavon. He called Dr. Solano's office on Tuesday and patient was unable to be seen on the same day so his brought him into the ED. Does have a bit of a dry cough and has some chest pain which is related to pleuritic chest pain anterior wall where he fell against a door jam in the bathroom. Feels he does not take a deep breath because of the pain. He is oxygenating well in the ED. Chest x-ray in the ED was unremarkable. He did have one episode nausea vomiting last night. She does feel foggy and admits to being extremely weak. He has a mild headache but no other complaints other than was mentioned above. In the ED he was evaluated for labs and imaging found to have a severe hypercalcemia at 17 renal failure with creatinine 3.[address] brain showed multiple lytic lesions throughout the school. Case was discussed with Dr. Carolyn sprague as this appears to be a case of multiple myeloma. We will follow along. Case was also discussed with magnetic prospecting supervisor who will follow along. Patient started on IV hydration in the ED. Has a history of chronic pain from lumbar cervical region of the spine. His chronic pain seems to have progressed over the past 6 months. 08/15 Slept well. Only complains of mild headache and chronic back pain. When in A. fib rate controlled last night. Calcium slowly coming down. Able to get calcitonin this morning. IV fluids. Patient underwent cardioversion for new onset atrial fibrillation overnight. Conscious sedation used with fentanyl and Versed. 100 J used patient converted to sinus rhythm thereafter. Tolerated the procedure well. 08/16 Poor sleep throughout the night. Talkative this morning. Still seems to have some confusion while having a conversation with him, but able to answer orientation questions without problem. Complains of mild headache and his chronic back pain. 08/17 No overnight events. But better last night. Only complains of a little bit of a cough. Mentation improved today. Laboratory work improved 08/18 Had some increased back pain last night with some confusion. Better this morning. He will be a headache last night denies any this morning. Constipation. Renal function continues to improve and calcium is now within normal limits. SPEP and light chain labs back. M-spike with [place] predominance. f/u with Dr. Leon for bone marrow biopsy. Possible discharged to rehab facility today. 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 -No Sinus -echo no sig abn, no LA enlargement *h/o JOSS but does not tolerated CPAP 2/2 Sjogren's: *Sjogren's: P: -IVF finish -Nephrology following -Denosumab, calcitonin given -Dr. Leon (heme/onc) consulted, eventual bone marrow biopsy -Dexamethasone 40mg qd x4 finished -UPEP, B2M, viscosity pending -cont isabel norvasc, ACEI/HCTZ held. switch hctz to lasix upon d/c -Lopressor started bid, change to coreg for better BP control -SSI, hold metformin, -pt/ot -Possible d/c to SNF today -ppx: heparin Discharge diagnosis: Acute renal failure hypercalcemia multiple myeloma work-up Secondary discharge diagnosis: Encephalopathy cranial lytic lesions anemia diabetes hypertension anxiety chronic pain obstructive sleep apnea Sjogren's - Time Spent with Patient Total time spent providing and/or coordinating discharge services: Greater than 30 minutes Medical - DS: Exam - Constitutional Vitals: Vital Signs Temp Resp BP Pulse Ox 08/17/18 08:01 98.8 F 18 154/88 08/17/18 07:36 96 08/17/18 07:21 144/90 08/17/18 04:04 98.8 F 91 08/17/18 01:01 150/95 95 08/17/18 00:01 145/89 96 08/16/18 23:50 99.2 F H 18 154/90 95 08/16/18 23:36 98.4 F 22 154/90 97 08/16/18 23:06 98.7 F 154/90 95 08/16/18 23:03 154/90 96 08/16/18 20:09 98.4 F 157/93 98 08/16/18 20:01 157/93 99 08/16/18 20:00 98 08/16/18 19:01 172/84 100 08/16/18 18:59 98.4 F 18 172/84 100 08/16/18 18:01 165/104 100 08/16/18 17:01 157/105 99 08/16/18 16:01 97.3 F 16 140/81 97 08/16/18 15:01 149/84 94 08/16/18 14:01 149/82 92 08/16/18 12:07 98.5 F 16 150/81 95 Intake and Output 08/16/18 08/17/18 08/17/18 21:59 05:59 13:59 Intake Total 50 1340 300 Output Total 675 975 750 Balance -625 365 -450 Intake: IV 50 1000 Sodium Chloride 0.9% 1,000 ml @ 1000 125 mls/hr IV .Q8H [facility] Rx#: [id number] Oral 340 300 Output: Void Amount 675 975 750 Other: Meal Breakfast Percent of Meal Consumed 100% Urine Appearance Clear Sediment Urine Color Light Clarisa Blood Tinged Weight 87.317 kg Medical - DS: Data Labs on day of discharge: Labs from last 24 hours 08/17/18 08/14/18 03:40 10:45 Sodium 141 Potassium 3.6 Chloride 106 Carbon Dioxide 22 Anion Gap 13.0 BUN 49 H Creatinine 2.1 H GFR Calculation 32 Glucose 203 H Uric Acid 9.4 H Calcium 9.4 Phosphorus 2.3 L Magnesium 1.8 Total Bilirubin 0.2 Direct Bilirubin < 0.2 GGT 39 AST 30 ALT 35 Alkaline Phosphatase 67 Lactate Dehydrogenase 252 H Total Protein 5.7 L Albumin 3.3 Globulin 2.4 Albumin/Globulin Ratio 1.4 Triglycerides 101 Free [place] LC, Quant 4260.00 H Free Lambda LC, Quant 10.02 Free [place]/Lambda Ratio 425.150 H Preliminary micro results at discharge 08/14/18 10:45 Blood Culture - Preliminary Blood 08/14/18 10:52 Blood Culture - Preliminary Blood Medical - DS: A/P - Patient/Caregiver Discharge Instructions Activity: increase activity as tolerated Diet: Consistent Carbohydrate Prescriptions: amLODIPine [Norvasc] 10 mg PO DAILY #30 tab Carvedilol [Coreg] 6.25 mg PO BIDCC #60 tab Furosemide [Lasix] 20 mg PO DAILY #30 tab Insulin Lispro [Insulin Lispro Kwikpen U-100] See Protocol SQ ACHS #2 insuln.pen Linagliptin [Tradjenta] 2.5 mg PO DAILY #20 tab - Follow up Plan Follow up with: Deborah Garcia MD [Primary Care Provider] - Bhavin Leon MD [Physician] - Irina May MD [Physician] - Disposition: Xfer SNF Prognosis: Undetermined Rehab Potential: Fair I certify that the patient requires SNF services: Yes Medical - DS: Qual - VTE Deep Vein Thrombosis/Pulmonary Embolism Present on Admission: No
--- NOTE | 2018-08-17 11:32 | Nephrology Progress Note ---
Subjective Patient information: Note initiated : 08/17/18 at 11:30 am Patient: Joshua Adams 68 y/o M admitted on 08/14/18 for Confusion, SOB, Cough. Chief Complaint: Weakness. Principal diagnosis: Acute kidney injury and hypercalcemia Pertinent ROS: Weakness No edema Clifford removed No dysuria Objective - Vital Signs Vital signs: Vital Signs Temp Resp BP Pulse Ox 08/17/18 08:01 98.8 F 18 154/88 08/17/18 07:36 96 08/17/18 07:21 144/90 08/17/18 04:04 98.8 F 91 08/17/18 01:01 150/95 95 08/17/18 00:01 145/89 96 08/16/18 23:50 99.2 F H 18 154/90 95 08/16/18 23:36 98.4 F 22 154/90 97 08/16/18 23:06 98.7 F 154/90 95 08/16/18 23:03 154/90 96 08/16/18 20:09 98.4 F 157/93 98 08/16/18 20:01 157/93 99 08/16/18 20:00 98 08/16/18 19:01 172/84 100 08/16/18 18:59 98.4 F 18 172/84 100 08/16/18 18:01 165/104 100 08/16/18 17:01 157/105 99 08/16/18 16:01 97.3 F 16 140/81 97 08/16/18 15:01 149/84 94 08/16/18 14:01 149/82 92 08/16/18 12:07 98.5 F 16 150/81 95 Intake and Output 08/16/18 08/17/18 08/17/18 21:59 05:59 13:59 Intake Total 50 1340 300 Output Total 675 975 750 Balance -625 365 -450 Intake: IV 50 1000 Sodium Chloride 0.9% 1,000 ml @ 1000 125 mls/hr IV .Q8H [facility] Rx#: [id number] Oral 340 300 Output: Void Amount 675 975 750 Other: Meal Breakfast Percent of Meal Consumed 100% Urine Appearance Clear Sediment Urine Color Light Clarisa Blood Tinged Weight 192 lb 8 oz Intake & Output: Intake & Output 08/16/18 08/17/18 08/17/18 21:59 05:59 13:59 Intake Total 50 1340 300 Output Total 675 975 750 Balance -625 365 -450 Weight 192 lb 8 oz Intake: IV 50 1000 Sodium Chloride 0.9% 1,000 ml @ 1000 125 mls/hr IV .Q8H [facility] Rx#: [id number] Oral 340 300 Output: Void Amount 678 974 750 Other: Meal Breakfast Percent of Meal Consumed 100% Urine Appearance Clear Sediment Urine Color Light Clarisa Blood Tinged - General Appearance General appearance: fatigue EENT: mucous membranes moist Neck: supple Respiratory: clear Cardiology: no edema Gastrointestinal: no tenderness Integumentary: warm and dry Neurologic: no focal deficit Musculoskeletal: no deformities Psychiatric: mood/affect appropriate, cooperative - Lab 08/15/18 03:40 08/17/18 03:40 Most recent lab results Calcium 9.4 mg/dl (8.6-10.4) 08/17/18 03:40 Phosphorus 2.3 mg/dL (2.7-4.5) L 08/17/18 03:40 Magnesium 1.8 mg/dL (1.6-2.5) 08/17/18 03:40 Assessment and Plan (1) Acute renal failure syndrome Joshua Adams is a 68-year-old male with hypertension, diabetes mellitus type 2, chronic back pain with history of NSAID use admitted on 08/14/18. Acute kidney injury associated with hypercalcemia and multiple myeloma, present on arrival. Work up: Urinalysis on 08/14/18: Yellow, Cloudy, pH 5.0, SG 1.016, protein 100, occult blood 0.03, leukocyte esterase negative. Renal US on 08/14/18: Normal kidneys and urinary bladder. Free [place]/Lambda ratio 425.15. Progress: Urine output: 1,650 ml reported in the past 24 hours. Serum creatinine decreased from 2.8 to 2.1 in the past 24 hours. Hypercalcemia, resolved. No significant fluid overload. No uremic symptoms. Plan: Anticipate no hemodialysis need. Avoid NSAIDs, nephrotoxic medications, IV contrast, supplements and dehydration. Referred to oncology for multiple myeloma treatment. Follow up at nephrology clinic after discharge. Status: Acute Priority: High Qualifiers: Acute renal failure type: unspecified Qualified Code(s): N17.9 - Acute kidney failure, unspecified
[2018-08-17 16:25] LABS: Albumin PEP 3.09 gm/dl (3.1-4.7); Albumin/Globulin Ratio PEP 0.9 (0.9-1.7); Alpha-1-Globulins 0.35 gm/dl (0.1-0.5); Alpha-2-Globulins 1.16 gm/dL (0.4-1.2); Beta Globulins 1.12 gm/dL (0.6-1.2); Gamma Globulins 0.77 gm/dL (0.5-1.7); Globulin PEP 3.4 gm/dl (2.4-3.6)
[2018-08-17] MEDS: traZODone HCL 50 MG TABLET PO SCH (20:18)
[2018-08-17] MEDS: IMIPRAMINE 25 MG TABLET PO SCH (20:18)
[2018-08-17] MEDS: SIMVASTATIN 10 MG TABLET PO SCH (20:18)
[2018-08-17] MEDS: MELATONIN 3 MG TABLET PO SCH (20:19)
[2018-08-18] MEDS: oxyCODONE/APAP 5/325MG TABLET PO PRN ×2 (05:28→08:58)
[2018-08-18] MEDS: 0.9 % SODIUM CHLORIDE 10 ML SYRINGE IV SCH ×2 (05:47→08:08)
[2018-08-18 05:56] LABS: ALT/SGPT 45 U/l (0-40); AST/SGOT 31 U/l (0-37); Albumin 3.3 gm/dL (3.2-5.2); Albumin/Globulin Ratio 1.5 (1.0-2.3); Alkaline Phosphatase 61 U/L (39-117); Bilirubin,Direct < 0.2 mg/dL (0.0-0.3); Bilirubin,Total 0.4 mg/dL (0.0-1.0); Blood Urea Nitrogen 46 mg/dl (8-23); Calcium 8.2 mg/dl (8.6-10.4); Carbon Dioxide 20 mmol/L (22-30); Chloride 107 mmol/L (96-108); Globulin 2.2 gm/dL (2.2-3.7); Glomerular Filtration Rate 44; Glucose 149 mg/dL (70-105); Lactate Dehydrogenase 257 U/L (94-250); Magnesium 1.4 mg/dL (1.6-2.5); Phosphorous 2.1 mg/dL (2.7-4.5); Potassium 3.8 mmol/L (3.3-5.1); Sodium 140 mmol/L (133-145); Triglycerides 82 mg/dl (<150); Uric Acid 7.3 mg/dL (2.5-8.0)
--- NOTE | 2018-08-18 06:03 | Nephrology Progress Note ---
Subjective Patient information: Note initiated : 08/18/18 at 6:01 am Patient: Joshua Adams 68 y/o M admitted on 08/14/18 for Confusion, SOB, Cough. Chief Complaint: Weakness Principal diagnosis: Acute kidney injury and hypercalcemia Pertinent ROS: Weakness No edema No dysuria Objective - Vital Signs Vital signs: Vital Signs Temp Pulse Resp BP Pulse Ox 08/18/18 03:47 98.4 F 68 16 145/83 96 08/18/18 00:05 98.1 F 16 149/89 95 08/17/18 20:20 97 08/17/18 20:09 99.8 F H 156/88 96 08/17/18 19:24 153/92 94 08/17/18 19:21 99.8 F H 94 H 16 153/92 95 08/17/18 16:01 158/89 94 08/17/18 15:33 98.5 F 18 148/78 92 08/17/18 12:04 98.9 F 18 154/85 92 08/17/18 08:01 98.8 F 18 154/88 08/17/18 07:36 96 08/17/18 07:21 144/90 Intake and Output 08/17/18 08/18/18 08/18/18 21:59 05:59 13:59 Intake Total 240 Output Total 875 925 Balance -635 -925 Intake: Oral 240 Output: Void Amount 875 925 Other: Meal Dinner Percent of Meal Consumed 50% Urine Appearance Clear Clear Urine Color Pale Dark Yellow Urine Odor Normal Strong Weight 201 lb Intake & Output: Intake & Output 08/17/18 08/18/18 08/18/18 21:59 05:59 13:59 Intake Total 240 Output Total 875 925 Balance -635 -925 Weight 201 lb Intake: Oral 240 Output: Void Amount 875 925 Other: Meal Dinner Percent of Meal Consumed 50% Urine Appearance Clear Clear Urine Color Pale Dark Yellow Urine Odor Normal Strong - General Appearance General appearance: fatigue EENT: mucous membranes moist Neck: supple Respiratory: clear Cardiology: no edema Gastrointestinal: no tenderness Integumentary: warm and dry Neurologic: no focal deficit Musculoskeletal: no deformities Psychiatric: mood/affect appropriate, cooperative - Lab 08/15/18 03:40 08/18/18 03:40 Most recent lab results Calcium 8.2 mg/dl (8.6-10.4) L 08/18/18 03:40 Phosphorus 2.1 mg/dL (2.7-4.5) L 08/18/18 03:40 Magnesium 1.4 mg/dL (1.6-2.5) L 08/18/18 03:40 Assessment and Plan (1) Acute renal failure syndrome Joshua Adams is a 68-year-old male with hypertension, diabetes mellitus type 2, chronic back pain with history of NSAID use admitted on 08/14/18. Acute kidney injury associated with hypercalcemia and multiple myeloma, present on arrival, resolving. Work up: Urinalysis on 08/14/18: Yellow, Cloudy, pH 5.0, SG 1.016, protein 100, occult blood 0.03, leukocyte esterase negative. Renal US on 08/14/18: Normal kidneys and urinary bladder. Free [place]/Lambda ratio 425.15. Progress: Urine output: 2,950 ml reported in the past 24 hours. Serum creatinine decreased from 2.1 to 2.6 in the past 24 hours. Metabolic acidosis and hypomagnesemia associated with with >7L NS infusion. Plan: Anticipate no hemodialysis need. Avoid NSAIDs, nephrotoxic medications, IV contrast, supplements and dehydration. Referred to oncology for multiple myeloma treatment. Follow up at nephrology clinic with Dr. Jose after discharge. Status: Acute Priority: High Qualifiers: Acute renal failure type: unspecified Qualified Code(s): N17.9 - Acute kidney failure, unspecified
[2018-08-18] MEDS ORDERED: MAGNESIUM SULFATE 2 GM/50 ML BAG IV ONE (07:02)
--- NOTE | 2018-08-18 07:03 | Internal Med Progress Note ---
Medical - PN: Subj Patient information: Note initiated : 08/18/18 at 6:59 am Service Date, if different from initiated Date: [] Patient: Joshua Adams 68 y/o M admitted on 08/14/18 for Confusion, SOB, Cough. Chief Complaint: [] Interval history: Mr. Adams is a 68 year old M Who presents the ED with his for increased weakness confusion over the weekend. Per his seem to start Tuesday but especially Tuesday was noticeable when they were at a wedding and he was over sitting in chair by himself not talking to anybody in not communicating much with people who would interact with him. His said this is quite unusual as he is quite gregarious and is hard for him to not talk. He was unable to follow conversations and was not making sense. Tuesday was a little bit better but he is still confused. wanted to bring him into the hospital but he wanted to wait and see Dr. pavon. He called Dr. Solano's office on Tuesday and patient was unable to be seen on the same day so his brought him into the ED. Does have a bit of a dry cough and has some chest pain which is related to pleuritic chest pain anterior wall where he fell against a door jam in the bathroom. Feels he does not take a deep breath because of the pain. He is oxygenating well in the ED. Chest x-ray in the ED was unremarkable. He did have one episode nausea vomiting last night. She does feel foggy and admits to being extremely weak. He has a mild headache but no other complaints other than was mentioned above. In the ED he was evaluated for labs and imaging found to have a severe hypercalcemia at 17 renal failure with creatinine 3.[address] brain showed multiple lytic lesions throughout the school. Case was discussed with Dr. Carolyn sprague as this appears to be a case of multiple myeloma. We will follow along. Case was also discussed with hander in who will follow along. Patient started on IV hydration in the ED. Has a history of chronic pain from lumbar cervical region of the spine. His chronic pain seems to have progressed over the past 6 months. 08/15 Slept well. Only complains of mild headache and chronic back pain. When in A. fib rate controlled last night. Calcium slowly coming down. Able to get calcitonin this morning. IV fluids. Patient underwent cardioversion for new onset atrial fibrillation overnight. Conscious sedation used with fentanyl and Versed. 100 J used patient converted to sinus rhythm thereafter. Tolerated the procedure well. 08/16 Poor sleep throughout the night. Talkative this morning. Still seems to have some confusion while having a conversation with him, but able to answer orientation questions without problem. Complains of mild headache and his chronic back pain. 08/17 No overnight events. But better last night. Only complains of a little bit of a cough. Mentation improved today. Laboratory work improved 08/18 Had some increased back pain last night with some confusion. Better this morning. He will be a headache last night denies any this morning. Constipation. Renal function continues to improve and calcium is now within normal limits. Possible discharged to rehab facility today. Review of Systems: denies fever/chills/nausea/vomiting/chest or abdominal pain/dyspnea/diarrhea. Otherwise see above. - Constitutional Vitals: Vital Signs Temp Pulse Resp BP Pulse Ox 98.4 F 68 16 145/83 96 08/18/18 03:47 08/18/18 03:47 08/18/18 03:47 08/18/18 03:47 08/18/18 03:47 Period Temp Pulse Resp BP Sys/Katz Pulse Ox Last 24 Hr 98.1 F-99.8 F 68-94 16-18 144-158/78-92 92-97 Intake and Output 08/17/18 08/18/18 08/18/18 21:59 05:59 13:59 Intake Total 240 1800 Output Total 875 925 Balance -635 -925 1800 Weight 91.172 kg Intake & Output: Intake & Output 08/17/18 08/18/18 08/18/18 21:59 05:59 13:59 Intake Total 240 1800 Output Total 875 925 Balance -635 -925 1800 Weight 91.172 kg Intake: IV 1000 Oral 240 800 Output: Void Amount 875 925 Other: Meal Dinner Percent of Meal Consumed 50% Urine Appearance Clear Clear Urine Color Pale Dark Yellow Urine Odor Normal Strong Exam: General: Alert, Awake, No acute Distress Eyes/N/T: EOMI, Head/Neck: neck supple, CV: RRR, 2/6 SM Pulm: Clear b/l, no wheezing/rhonchi/rales Abd: soft, nontender, +BS x4 Ext: no clubbing/cyanosis/edema Neuro: Alert, no focal deficits, moves all extremities, A&O x4, speech clear and thoughts process much improved overall but still has some waxing and waning. Skin: warm/dry Medical - PN: Obj Da - Labs CBC & Chem 7: 08/15/18 03:40 08/18/18 03:40 Labs: Abnormal Lab Results 08/18/18 08/17/18 08/16/18 03:40 03:40 07:38 Chloride Carbon Dioxide 20 L BUN 46 H 49 H 51 H Creatinine 1.6 H 2.1 H 2.8 H Glucose 149 H 203 H 217 H Uric Acid 9.4 H 11.2 H Calcium 8.2 L 11.5 H Phosphorus 2.1 L 2.3 L Magnesium 1.4 L 1.5 L ALT 45 H Lactate Dehydrogenase 257 H 252 H 286 H Total Protein 5.5 L 5.7 L Albumin (PEP) PTH Intact Free [place] LC, Quant Free [place]/Lambda Ratio 08/15/18 08/15/18 08/15/18 15:00 03:40 03:40 Chloride 94 L Carbon Dioxide BUN 40 H 34 H Creatinine 3.1 H 3.3 H Glucose 304 H 268 H Uric Acid 11.3 H Calcium 12.8 H 14.7 H* Phosphorus Magnesium 1.4 L ALT Lactate Dehydrogenase 264 H Total Protein Albumin (PEP) PTH Intact 8.8 L Free [place] LC, Quant Free [place]/Lambda Ratio 08/14/18 08/14/18 10:45 10:45 Chloride Carbon Dioxide BUN Creatinine Glucose Uric Acid Calcium Phosphorus Magnesium ALT Lactate Dehydrogenase Total Protein Albumin (PEP) 3.09 L PTH Intact Free [place] LC, Quant 4260.00 H Free [place]/Lambda Ratio 425.150 H Meds: Medications Albuterol/Ipratropium (Duoneb) 3 ml NEB Q4HP PRN PRN Reason: Shortness Of Breath Amlodipine Besylate (Norvasc) 10 mg PO DAILY [facility] Last Admin: 08/17/18 08:09 Dose: 10 mg Documented by: Aspirin (Aspirin) 81 mg PO DAILY [facility] Last Admin: 08/17/18 08:10 Dose: 81 mg Documented by: Diagnostic Test (Pha) (Accu-Chek) 1 each FS ACHS [facility] Last Admin: 08/17/18 21:00 Dose: 1 each Documented by: Diazepam (Valium) 5 mg PO BIDP PRN PRN Reason: Anxiety Last Admin: 08/16/18 10:02 Dose: 5 mg Documented by: Docusate Sodium (Colace) 100 mg PO BID [facility] Last Admin: 08/17/18 20:18 Dose: 100 mg Documented by: Famotidine (Pepcid) 20 mg PO BID [facility] Last Admin: 08/17/18 20:18 Dose: 20 mg Documented by: Heparin Sodium (Porcine) (Heparin) 5,000 unit SQ Q12 [facility] Last Admin: 08/17/18 20:19 Dose: 5,000 unit Documented by: Hydralazine HCl (Apresoline) 0 mg IV Q2HP PRN PRN Reason: Hypertension Potassium Chloride 40 meq/ (Dextrose) 520 mls @ 130 mls/hr IV UD PRN PRN Reason: Potassium < 3 Magnesium Sulfate (Magnesium Sulfate) 2 gm in 50 mls @ 50 mls/hr IV UD PRN PRN Reason: Magnesium </= 1.6 Last Infusion: 08/15/18 12:16 Dose: Infused Documented by: Imipramine HCl (Tofranil) 25 mg PO QHS [facility] Last Admin: 08/17/18 20:18 Dose: 25 mg Documented by: Insulin Glargine (Lantus) 25 unit SQ DAILY [facility] Last Admin: 08/17/18 08:08 Dose: 25 unit Documented by: Insulin Human Lispro (Humalog) 0 unit SQ ACHS [facility]; Protocol Last Admin: 08/17/18 21:00 Dose: 9 unit Documented by: Labetalol HCl (Trandate) 0 mg IV Q2HP PRN PRN Reason: Hypertension Last Admin: 08/15/18 06:10 Dose: 10 mg Documented by: Lactulose (Cephulac) 10 gm PO DAILYP PRN PRN Reason: Constipation Last Admin: 08/18/18 06:39 Dose: 10 gm Documented by: Melatonin (Melatonin 3mg Tablet) 3 mg PO QHS [facility] Last Admin: 08/17/18 20:19 Dose: 3 mg Documented by: Metoprolol Tartrate (Lopressor) 5 mg IV Q2HP PRN PRN Reason: Tachyarrhythmias HR>110 Last Admin: 08/15/18 15:45 Dose: 5 mg Documented by: Metoprolol Tartrate (Lopressor) 25 mg PO BID [facility] Last Admin: 08/17/18 20:18 Dose: 25 mg Documented by: Morphine Sulfate (Morphine) 0 mg IV Q3HP PRN PRN Reason: Pain Last Admin: 08/16/18 00:12 Dose: 2 mg Documented by: Ondansetron HCl (Zofran) 4 mg IV Q4HP PRN PRN Reason: Nausea And Vomiting Oxycodone/Acetaminophen (Percocet 5-325 Mg) 1 - 2 tab PO BIDP PRN PRN Reason: Pain Last Admin: 08/18/18 05:28 Dose: 2 tab Documented by: Sildenafil Citrate [ Revatio] 20 Mg Tablet 1 dose PO DAILY [facility] Last Admin: 08/17/18 08:10 Dose: Not Given Documented by: Polyethylene Glycol (Miralax) 17 gm PO DAILYP PRN PRN Reason: Constipation Last Admin: 08/17/18 18:21 Dose: 17 gm Documented by: Potassium Chloride (Kdur) 40 meq PO UD PRN PRN Reason: Potssium is 3-3.5 Potassium Chloride (Kdur) 40 meq PO UD PRN PRN Reason: Potassium < 3 Promethazine HCl (Phenergan) 12.5 mg DE Q6HP PRN PRN Reason: Pain Senna (Senokot) 2 tab PO HSP PRN PRN Reason: Constipation Simvastatin (Zocor) 10 mg PO QPM [facility] Last Admin: 08/17/18 20:18 Dose: 10 mg Documented by: Sodium Chloride (Saline Flush) 10 ml IV Q8 [facility] Last Admin: 08/18/18 05:47 Dose: 10 ml Documented by: Tamsulosin HCl (Flomax) 0.8 mg PO QDAY [facility] Last Admin: 08/17/18 08:09 Dose: 0.8 mg Documented by: Trazodone HCl (Desyrel) 50 mg PO QHS [facility] Last Admin: 08/17/18 20:18 Dose: 50 mg Documented by: Medical - PN: A/P - Time Spent With Patient Total time spent is greater than 50% in coordination of care (as documented) at patient's floor/unit and/or counseling patient: - Narrative A/P Narrative: A: *MM: -SPEP with M-spike, [place] free light chains over 4000 with lambda 10, ratio of [place]/lambda is 425 *Hypercalcemia, symptomatic: 2/2 above -Resolved *Cranial lytic lesions: 2/2 above -skeletal survey with cranial lesions only, T11 comp Fx chronic *PETTY: 2/2 above + meds -1.6<<<3.4 *NCNC Anemia: 2/2 above *Encephalopathy, metabolic: 2/2 above, improving *DM: *HTN/HLD: *Anxiety: *Chronic pain: *Afib, new, rate controlled: 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 -No Sinus -echo no sig abn, no LA enlargement *h/o JOSS but does not tolerated CPAP 2/2 Sjogren's: *Sjogren's: P: -IVF finish -Nephrology following -Denosumab, calcitonin given -Dr. Leon (heme/onc) consulted, eventual bone marrow biopsy -Dexamethasone 40mg qd x4 finished -UPEP, B2M, viscosity pending -cont isabel norvasc, ACEI/HCTZ held initially -Lopressor started bid -d/c Vit D supp and HCTZ -SSI, hold metformin, added basal insulin while on high dose steroids -pt/ot -Possible d/c to SNF today -ppx: heparin Medical - PN: Qual - VTE Deep Vein Thrombosis/Pulmonary Embolism Present on Admission: No
[2018-08-18] MEDS: INSULIN LISPRO 1 UNIT/0.01 ML UNIT SQ SCH ×2 (07:17→12:06)
[2018-08-18] MEDS ORDERED: POLYETHYLENE GLYCOL 3350 17 GM PACKET PO ONE (07:49)
[2018-08-18] MEDS ORDERED: CARVEDILOL 6.25 MG TABLET PO SCH (08:00)
[2018-08-18] MEDS: amLODIPine 10 MG TABLET PO SCH (08:58)
[2018-08-18] MEDS: ASPIRIN 81 MG TAB.CHEW PO SCH (08:58)
[2018-08-18] MEDS: DOCUSATE SODIUM 100 MG CAPSULE PO SCH (08:58)
[2018-08-18] MEDS: FAMOTIDINE 20 MG TABLET PO SCH (08:58)
[2018-08-18] MEDS: TAMSULOSIN 0.4 MG CAPSULE PO SCH (08:58)
[2018-08-18] MEDS: INSULIN GLARGINE, HUMAN 1 UNIT/0.01 ML SQ SCH (08:59)
[2018-08-18] MEDS: HEPARIN 5,000 UNIT/ML VIAL SQ SCH (09:00)
[2018-08-18] MEDS: SILDENAFIL CITRATE 20 MG PO SCH (09:02)
[2018-08-21] MEDS ORDERED: BUPRENORPHINE TRANSDERMA SCH (09:00)
[2018-08-28 11:45] LABS: Albumin 14 %; Alpha-1-Globulin 2 %; Alpha-2-Globulin 3 %; Gamma Globulin 75 %; Prot/Creatinine Ratio 1714 (< OR = 114)
== END 2018-08-18 13:01 | DRG 682 ==
LOC: ED 10:12 → ICU 14:20
PROVIDERS: ADMIT Internal Medicine; ATTEND Internal Medicine

== ENCOUNTER 2018-10-09 12:31 | Inpatient (IN) ==
[2018-10-09] MEDS ORDERED: ONDANSETRON 4 MG/2 ML VIAL IV PRN (15:12)
[2018-10-09] MEDS ORDERED: ACETAMINOPHEN 325 MG TABLET PO PRN (15:12)
[2018-10-09] MEDS ORDERED: DEXTROSE 31 GM ORAL.SUSP PO PRN (15:17)
[2018-10-09] MEDS ORDERED: DEXTROSE 50% 50 ML VIAL IV PRN (15:17)
[2018-10-09] MEDS ORDERED: VANCOMYCIN PER PHARMACY IV SCH (15:17)
--- NOTE | 2018-10-09 15:41 | Nephrology Progress Note ---
Subjective Patient information: Note initiated : 10/09/18 at 3:33 pm Service Date, if different from initiated Date: [] Patient: Joshua Adams 68 y/o M admitted on 10/09/18 for Rule out Sepsis. Chief Complaint: [] Principal diagnosis: fever, multiple myeloma Assessment and Plan - Narrative A/P Narrative: Brief Nephrology Note - Full note to follow Notified by HD RN about patient's temp up to 100.8 while undergoing dialysis. 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 He c/o 2 days chills and sweats. Was found to have a temp as above. Has RIJ TDC and spinal stimulator. * 2 sets of blood cultures from 2 different sites done in the HD unit. * CBC with manual diff done as well. He will be admitted for sepsis work up and empiric antibiotics until return of cultures. High suspicion for sepsis in immunocompromised patient. B symptoms in setting of malignancy is in the differential.
[2018-10-09] MEDS ORDERED: DIAZEPAM 5 MG TABLET PO PRN (15:43)
[2018-10-09] MEDS ORDERED: VANCOMYCIN 1,500 MG in 0.9 % SODIUM CHLORIDE 500 ML IV ONE (16:00)
[2018-10-09] MEDS: oxyCODONE HCL 5 MG TABLET PO PRN ×2 (16:22→21:32)
[2018-10-09] MEDS: rOPINIRole 1 MG TABLET PO SCH ×2 (16:23→21:32)
[2018-10-09 17:25] LABS: Appearance,Urine CLEAR; Bacteria,Urine 0 /hpf (0); Bilirubin,Urine NEG (NEG); Color,Urine STRAW; Culture Indicated,Urine NO; Glucose,Urine (UA) NEGATIVE (NEG); Ketones,Urine NEG (NEG); Leukocyte Esterase,Urine NEG /uL (NEG); Nitrate,Urine NEG (NEG); Protein,Urine 100 mg/dL (NEG); Specific Gravity,Urine 1.009 (1.000-1.035); Urine Blood NEG mg/dL (<0.03); Urine RBC 1 /hpf (0-1); Urine Squamous Epithelial Cell < 1 /hpf (0-4); Urine WBC 1 /hpf (0-4); Urobilinogen,Urine NEG (NEG)
[2018-10-09] MEDS ORDERED: CARVEDILOL 6.25 MG TABLET PO SCH (17:30)
[2018-10-09] MEDS: CARVEDILOL 6.25 MG TABLET PO SCH (17:51)
[2018-10-09] MEDS: PIPERACILLIN SODIUM/TAZOBACTAM 2.25 GM in DEXTROSE 5% IN WATER 50 ML IV SCH (17:51)
[2018-10-09] MEDS: INSULIN LISPRO 1 UNIT/0.01 ML UNIT SQ SCH ×2 (18:06→21:33)
--- NOTE | 2018-10-09 18:23 | XRay Report ---
CLINICAL INFORMATION: Fever COMPARISON: 08/14/2018 TECHNIQUE: PA and Lateral views FINDINGS: The heart size, mediastinum and pulmonary vessels are unremarkable. Right IJ double lumen catheter as been placed since previous exam tip overlies the SVC satisfactory position. No complication from line placement The lungs are clear. There are no effusions. The bones and soft tissues are within normal limits. IMPRESSION: Normal chest. Interpreted and Authenticated by: Onesimo Gomez 10/09/18
--- NOTE | 2018-10-09 18:52 | Internal Med History&Physical ---
Medical - H&P: [facility] Patient information: Note initiated : 10/09/18 at 6:51 pm Service Date, if different from initiated Date: [] Patient: Joshua Adams a 68 y/o M admitted on 10/09/18 for Rule out Sepsis. Chief Complaint: Chills, fever while on dialysis History of present illness: Mr. Adams is a 68 year old M with recently diagnosed multiple myeloma, history of obstructive sleep apnea, diabetes, hypertension as well as acute kidney injury requiring hemodialysis. He presents from the dialysis unit for admission for evaluation of elevated temperature and shaking chills. Patient was diagnosed to myeloma in August of this year. He had acute kidney injury at that time which resolved with fluids and correction of hypercalcemia. Subsequently on September 08, he presented to the emergency department here with PETTY and a creatinine greater than 7, necessitating transfer to [facility] in [place]. He was started on dialysis at that point, and received initial chemotherapy. Patient's been dialyzing Tuesday via tunneled right IJ dialysis catheter. Last Tuesday he developed shaking chills at home and those have continued over the weekend. During dialysis, he had a temperature up to 100.8. He also is complaining of worsening of his chronic left shoulder pain. He has had rotator cuff repairs in the past, and has furthered rotator cuff injury with chronic pain for which he uses code own. However over the last 24 hours the pain has progressed down his arm, with fairly significant pain with any movement at the shoulder elbow. 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 His notes that that arm seems swollen today. He said no headache, no vision changes, no sore throat. No shortness of breath, no cough or sputum production. No abdominal pain, no nausea or vomiting, no diarrhea. He still produces urine, has had no dysuria. He is noted no rashes. He is directly admitted from dialysis for further evaluation of shaking chills and low-grade fever, concern for sepsis in this immunocompromised patient. All systems: reviewed and no additional remarkable complaints except as stated Medical - H&P: PM Medical history: Multiple myeloma (Chronic) Pancytopenia (Chronic) Constipation (Chronic) Edema (Chronic) Anemia (Chronic) Shoulder pain (Chronic) Back pain (Chronic) Left hand weakness (Chronic) JOSS (obstructive sleep apnea) (Chronic) Sjogren's disease (Chronic) BPH (benign prostatic hyperplasia) (Chronic) Acute kidney injury (Chronic) Hypercalcemia (Chronic) Altered mental status (Chronic) Acute renal failure syndrome (Chronic) Hyperkalemia (Chronic) Urinary hesitancy (Chronic) Nocturia (Chronic) Type 2 diabetes mellitus with unspecified diabetic retinopathy without macular edema (Chronic) Polyarthritis (Chronic) 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 Does not smoke. Occasional alcohol. Medical - H&P: Meds Home Medications Medication Instructions Recorded Confirmed Type ropinirole 1 mg tablet 1 mg PO .COMPLEX 05/18/17 10/09/18 History simvastatin 10 mg tablet 10 mg PO QPM 05/18/17 10/09/18 History Chlorhexidine Gluconate [Paroex] 15 ml .ROUTE BID 08/14/18 10/09/18 History Insulin Lispro [Insulin Lispro See Protocol SQ ACHS #2 insuln.pen 08/17/18 10/09/18 Rx Kwikpen U-100] amLODIPine [Norvasc] 10 mg PO DAILY #30 tab 08/17/18 10/09/18 Rx Diazepam [Valium] 5 mg PO BID PRN #30 tab 08/18/18 10/09/18 Rx acetaminophen ER 650 mg 650 mg PO Q4H tab 09/21/18 10/09/18 History tablet,extended release allopurinol 100 mg tablet 100 mg PO HS 09/21/18 10/09/18 History oxycodone 10 mg tablet 10 mg PO Q4-6H PRN #180 tab 09/26/18 10/09/18 Rx Acyclovir 200 mg PO BID 10/09/18 10/09/18 History Calcium 600-Vit D3 400 Tablet 600 unit PO DAILY 10/09/18 10/09/18 History Carvedilol 12.5 mg PO DAILY 10/09/18 10/09/18 History Tradjenta 5 mg PO DAILY 10/09/18 10/09/18 History traZODone HCL [Trazodone HCl] 50 mg PO HS 10/09/18 10/09/18 History Allergies Allergy/AdvReac Type Severity Reaction Status Date / Time No Known Drug Allergies Allergy Verified 09/26/18 10:34 Medical - H&P: Exam - Constitutional Vitals: Temp Pulse Resp BP Pulse Ox 98.4 F 69 18 148/74 97 10/09/18 16:36 10/09/18 16:36 10/09/18 16:36 10/09/18 16:36 10/09/18 16:36 Exam: GENERAL: Awake but drowsy, oriented, looks uncomfortable. HEENT: Atraumatic. PERRL, conjunctiva clear. Hearing grossly intact. Oropharynx with moist mucous membranes, no lip or gum lesions, no pharyngeal erythema or exudate, tongue midline. NECK: Supple without meningismus, no thyromegaly RESPIRATORY: Breath sounds clear bilaterally without wheezes or rhonchi. Respiratory effort is unlabored. CHEST: Right upper chest with tunneled dialysis catheter in place, no surrou nding erythema tunnel is nontender. CARDIOVASCULAR: Regular rate and rhythm, no murmur. No peripheral edema. Carotid pulses 2+ without bruit. GI: Abdomen soft, nontender, no guarding or rebound. Bowel sounds are present. No hepatosplenomegaly. MUSCULOSKELETAL: Left shoulder rides high at the joint. Tenderness around the bony and soft tissue areas of the shoulder, no erythema. Tenderness palpation along the left arm and forearm without erythema or fluctuance noted. Pain within the forearm with movement at the elbow or wrist. SKIN: Feels hot, is dry. Skin turgor normal. NEUROLOGIC: Cranial nerves II through XII grossly intact. Muscle mass normal. Strength 5/5 in the right upper and bilateral lower extremities; exam limited by pain in the left upper extremity. Sensation intact to light touch bilaterally. PSYCHIATRIC: Alert, oriented x3, mood and affect congruent with the situation, normal insight. Medical - H&P: Reslt - Labs CBC & Chem 7: 10/09/18 20:33 Labs: White count 7.9, hemoglobin 6.9, hematocrit 20.7, platelet count 313,000 with 77% neutrophils, 7% bands, 1% metamyelocytes, 1% myelocytes. - Imaging and Cardiology Chest x-ray Status: image reviewed by me Additional comments: Date of Service: 10/09/18 Procedure(s): XR chest 2V FINDINGS: The heart size, mediastinum and pulmonary vessels are unremarkable. Right IJ double lumen catheter as been placed since previous exam tip overlies the SVC satisfactory position. No complication from line placement The lungs are clear. There are no effusions. The bones and soft tissues are within normal limits. IMPRESSION: Normal chest. Medical - H&P: A/P (1) Fever Current visit: Yes Status: Acute (2) Multiple myeloma Current visit: Yes Status: Chronic (3) Anemia Current visit: Yes Status: Chronic (4) Shoulder pain Current visit: No Status: Chronic (5) Acute renal failure syndrome Current visit: Yes Status: Chronic (6) Hypertension Current visit: Yes Status: Chronic - Narrative A/P Narrative: 68-year-old male with diagnosis of multiple myeloma in mid August, subsequent acute renal failure on dialysis presents with shaking chills and fever to 100.8 in dialysis. Fever. Concerning for possible sepsis or bloodstream infection given his shaking chills and immunocompromise state with a dialysis catheter in place. He also has a spinal stimulator in place. While white count is normal he does have a left shift with bands and other immature PMNs. Blood cultures have been obtained and dialysis. Differential includes bloodstream infection, viral syndrome, B symptoms secondary to his underlying malignancy. Plan: Inpatient admission Begin vancomycin and Zosyn Follow-up blood cultures CT left shoulder to evaluate for infectious focus. Will not be able to eric erate contrast due to renal function. Multiple myeloma. Has received chemotherapy. Is immunocompromised due to myeloma as well as therapy. Plan: Nothing further at this time. Left shoulder pain. Patient with a chronic left shoulder pain, however is acutely worsened over the last day and a half, now with pain into the forearm and arm. Concern for possible myelomatous involvement of the shoulder joint, possible infection. The arm and forearm are also somewhat swollen, concern for possible deep venous thrombosis. Plan: CT of the shoulder, venous duplex of the upper extremity Anemia. The patient had ongoing anemia. Current hemoglobin is 6.9. He is hemodynamically stable. I initially discussed transfusion with Dr. Abrams. At this point will follow expectantly, hemoglobin continues to drop we will likely transfuse 1 unit of leuko-reduced and irradiated packed red cells. Plan: Monitor CBC. Hypertension. Stable. Plan: Continue home regimen. Type 2 diabetes. Plan: Controlled carbohydrate/renal diet, sliding scale insulin Acute kidney injury. Presented 09/08/2018 with acute kidney injury, presumptive secondary to myeloma. Still on hemodialysis. Plan: Hemodialysis per nephrology. CODE STATUS: Full code Prophylaxis: Subcu heparin
[2018-10-09] MEDS ORDERED: ACYCLOVIR 400 MG TABLET PO SCH (21:00)
[2018-10-09 21:25] LABS: ALT/SGPT 9 U/l (0-40); AST/SGOT 11 U/l (0-37); Albumin 3.5 gm/dL (3.2-5.2); Albumin/Globulin Ratio 1.4 (1.0-2.3); Alkaline Phosphatase 73 U/L (39-117); Bilirubin,Direct < 0.2 mg/dL (0.0-0.3); Bilirubin,Total 0.4 mg/dL (0.0-1.0); Blood Urea Nitrogen 13 mg/dl (8-23); Calcium 7.3 mg/dl (8.6-10.4); Carbon Dioxide 28 mmol/L (22-30); Chloride 91 mmol/L (96-108); Globulin 2.5 gm/dL (2.2-3.7); Glomerular Filtration Rate 20; Glucose 109 mg/dL (70-105); Lactate Dehydrogenase 253 U/L (94-250); Phosphorous 2.9 mg/dL (2.7-4.5); Triglycerides 65 mg/dl (<150); Uric Acid 2.2 mg/dL (2.5-8.0)
[2018-10-09] MEDS: HEPARIN 5,000 UNIT/ML VIAL SQ SCH (21:31)
[2018-10-09] MEDS: ACYCLOVIR 400 MG TABLET PO SCH (21:32)
[2018-10-09] MEDS: SIMVASTATIN 10 MG TABLET PO SCH (21:32)
[2018-10-09] MEDS: traZODone HCL 50 MG TABLET PO SCH (21:33)
[2018-10-09] MEDS: CHLORHEXIDINE GLUCONATE 1 ML ORAL.SOL SSP SCH (21:33)
[2018-10-10] MEDS: 0.9 % SODIUM CHLORIDE 10 ML SYRINGE IV SCH ×4 (00:31→20:57)
[2018-10-10] MEDS: oxyCODONE HCL 5 MG TABLET PO PRN ×5 (02:29→23:11)
[2018-10-10 06:16] LABS: ALT/SGPT 8 U/l (0-40); AST/SGOT 11 U/l (0-37); Albumin 3.5 gm/dL (3.2-5.2); Albumin/Globulin Ratio 1.3 (1.0-2.3); Alkaline Phosphatase 73 U/L (39-117); Basophils # (Auto) 0 K/mcL (0.0-0.3); Basophils % (Auto) 0.4 % (0.0-2.0); Bilirubin,Direct < 0.2 mg/dL (0.0-0.3); Bilirubin,Total 0.5 mg/dL (0.0-1.0); Blood Urea Nitrogen 17 mg/dl (8-23); Calcium 7.3 mg/dl (8.6-10.4); Carbon Dioxide 27 mmol/L (22-30); Chloride 94 mmol/L (96-108); Eosinophils # (Auto) 0 K/mcL (0.0-0.7); Eosinophils % (Auto) 0 % (0.0-7.0); Globulin 2.8 gm/dL (2.2-3.7); Glomerular Filtration Rate 16; Glucose 111 mg/dL (70-105); Granulocytes % (Auto) 82.1 % (38.0-78.0); Hematocrit 20.1 % (41.0-55.0); Hemoglobin 6.8 g/dL (13.5-16.5); Lactate Dehydrogenase 269 U/L (94-250); Lymphocytes # (Auto) 0.3 K/mcL (1.5-4.8); Lymphocytes % (Auto) 4.7 % (15.5-49.0); Mean Cell Volume 89.3 fL (80.0-100.0); Mean Corpuscular HGB Conc 33.8 g/dL (31.0-36.0); Mean Platelet Volume 7.6 fL (7.4-10.4); Monocytes # (Auto) 0.9 K/mcL (0.1-0.9); Monocytes % (Auto) 12.8 % (1.0-12.0); Phosphorous 3.3 mg/dL (2.7-4.5); Platelet Count 292 K/mcL (140-440); RBC 2.25 M/mcL (4.50-5.90); Red Cell Distribution Width 15.8 % (11.5-14.5); Triglycerides 67 mg/dl (<150); Uric Acid 2.8 mg/dL (2.5-8.0); WBC 6.7 K/mcL (4.5-11.0)
[2018-10-10] MEDS: CARVEDILOL 6.25 MG TABLET PO SCH ×2 (09:19→17:59)
[2018-10-10] MEDS: rOPINIRole 1 MG TABLET PO SCH ×3 (09:20→20:25)
[2018-10-10] MEDS: amLODIPine 10 MG TABLET PO SCH (09:20)
[2018-10-10] MEDS: HEPARIN 5,000 UNIT/ML VIAL SQ SCH ×2 (09:20→20:26)
[2018-10-10] MEDS: ACYCLOVIR 400 MG TABLET PO SCH ×2 (09:20→20:25)
[2018-10-10] MEDS: ALLOPURINOL 100 MG TABLET PO SCH (09:20)
[2018-10-10] MEDS: INSULIN LISPRO 1 UNIT/0.01 ML UNIT SQ SCH ×4 (09:21→20:26)
[2018-10-10] MEDS: CHLORHEXIDINE GLUCONATE 1 ML ORAL.SOL SSP SCH ×2 (09:23→20:26)
[2018-10-10] MEDS: PIPERACILLIN SODIUM/TAZOBACTAM 2.25 GM in DEXTROSE 5% IN WATER 50 ML IV SCH ×2 (09:28→20:57)
--- NOTE | 2018-10-10 11:59 | Cat Scan Report ---
CLINICAL INFORMATION: History of multiple myeloma. Sepsis COMPARISON: None TECHNIQUE: 0.625 mm axial slices were obtained from the lung apices through the bases without intravenous contrast. 2.5 mm Sagittal, coronal and axial reformatted images were processed and reviewed at bone, lung and soft tissue windows. 7 mm axial MIP images were also reconstructed to optimize pulmonary nodule detection.The exam was performed using radiation dose optimization techniques including, but not limited to, automated exposure control, adjustment of the mA and/or kV according to patient size and use of iterative reconstruction technique. FINDINGS: The pulmonary parenchymal windows show an 11 mm stellate nodule in the superior segment of the right lower lobe (image 74). There is also a small irregular peribronchiovascular infiltrate confined to the medial and posterior basilar segments of the right lower lobe which is likely infectious. There are scattered tiny nodules in the right lung apex (greater than 20 in number and ranging up to 4 mm) which are almost certainly old granulomas. There are a few other tiny granulomas scattered at periphery of both lungs. There are no effusions. Mediastinal windows show the heart is normal in size. Extremely heavy calcific plaque in the left main, proximal mid LAD proximal circumflex and proximal right artery. The noncontrasted central pulmonary arteries are mildly enlarged with a colon remain pulmonary diameter of 3.5 cm. This is suggestive, but not diagnostic, of pulmonary hypertension. Thoracic aorta is normal in contour and caliber. There is no adenopathy in the mediastinal hilar or axillary region. Esophagus is normal. The thyroid is unremarkable. Bone windows show spinal stimulator electrodes in the posterior epidural space at T7, T8 and T9 with lead wires descending in the posterior epidural space exiting through the T11-T12 intralaminar region. No wire breakage or other complication. There is a 11 mm vague low-attenuation lesion in the central T6 vertebral body which is almost certainly a benign hemangioma and not a astrocytoma. History of multiple myeloma acknowledged. Degenerative changes seen throughout thoracic spine with small Schmorl's nodes invaginating the endplates. At C5-6, broad disc spur complex and facet arthropathy result in severe left lateral recess /IV foraminal narrowing with impingement of the exiting left C6 nerve root. Mild central canal stenosis. At C6-7, large broad disc spur complex and facet arthropathy result in severe bilateral lateral recess/ IV foraminal narrowing impinging the exiting C7 nerve roots with moderate central canal stenosis IMPRESSION: 1. Small irregular peribronchovascular infiltrate in the medial and posterior basilar segments of the left lower lobe. This likely atypical pneumonia. 2. 11 mm irregular nodule superior segment right lower lobe which may represent primary pulmonary malignancy. Suggest follow-up chest CT in 4-6 weeks after antibiotic therapy to evaluate both the right lower lobe nodule and the left lower lobe atypical infiltrate 3. Borderline enlargement of the central pulmonary arteries suggestive, but not diagnostic, of pulmonary hypertension 4. Extraordinarily heavy calcific atherosclerotic plaque in the left main, proximal LAD circumflex and right coronary arteries. Suspect hemodynamically significant coronary artery disease which cannot be quantitated with this technique. 5. 11 mm low-attenuation lesion in the central T6 vertebral body which is likely a hemangioma. History of multiple myeloma acknowledged - no definite plasmocytoma lesions. 6. C5-6 and C6-7 degenerative disease resulting in severe left C5-6 and bilateral C6-7 lateral recess/ IV foraminal narrowing. The exiting left C6 and bilateral C7 nerve root impingement. Please correlate with upper extremity radiculopathy Interpreted and Authenticated by: Onesimo Gomez 10/10/18
--- NOTE | 2018-10-10 12:04 | Internal Med Progress Note ---
Medical - PN: Subj Patient information: Note initiated : 10/10/18 at 11:59 am Service Date, if different from initiated Date: [] Patient: Joshua Adams a 68 y/o M admitted on 10/09/18 for Rule out Sepsis. Chief Complaint: [] Interval history: Mr. Adams is a 68 year old M with recently diagnosed multiple myeloma, history of obstructive sleep apnea, diabetes, hypertension as well as acute kidney injury requiring hemodialysis. He presents from the dialysis unit for admission for evaluation of elevated temperature and shaking chills. Patient was diagnosed to myeloma in August of this year. He had acute kidney inju ry at that time which resolved with fluids and correction of hypercalcemia. Subsequently on September 08, he presented to the emergency department here with PETTY and a creatinine greater than 7, necessitating transfer to [facility] in [place]. He was started on dialysis at that point, and received initial chemotherapy. Patient's been dialyzing Tuesday via tunneled right IJ dialysis catheter. Last Tuesday he developed shaking chills at home and those have continued over the weekend. During dialysis, he had a temperature up to 100.8. He also is complaining of worsening of his chronic left shoulder pain. He has had rotator cuff repairs in the past, and has furthered rotator cuff injury with chronic pain for which he uses code own. However over the last 24 hours the pain has progressed down his arm, with fairly significant pain with any movement at the shoulder elbow. 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 His notes that that arm seems swollen today. He said no headache, no vision changes, no sore throat. No shortness of breath, no cough or sputum production. No abdominal pain, no nausea or vomiting, no diarrhea. He still produces urine, has had no dysuria. He is noted no rashes. He is directly admitted from dialysis for further evaluation of shaking chills and low-grade fever, concern for sepsis in this immunocompromised patient. 9/3still with pain in the left arm and shoulder. Seems about the same as yesterday. A little bit of relief with heating pad. Has had CT of the shoulder to rule out occult infection, also included the chest likewise to rule out pneumonia that was not apparent on chest radiograph. No shaking chills, but still feels warm. - Constitutional Vitals: Vital Signs Temp Pulse Resp BP Pulse Ox 98.1 F 83 16 137/74 98 10/10/18 08:00 10/10/18 08:00 10/10/18 08:00 10/10/18 08:00 10/10/18 08:00 Period Temp Pulse Resp BP Sys/Katz Pulse Ox Last 24 Hr 98.1 F-99.6 F 69-83 16-18 127-148/71-74 91-98 Intake and Output 10/09/18 10/10/18 10/10/18 21:59 05:59 13:59 Intake Total 1390 300 Output Total 375 250 350 Balance 1015 50 -350 Weight 183 lb Intake & Output: Intake & Output 10/09/18 10/10/18 10/10/18 21:59 05:59 13:59 Intake Total 1390 300 Output Total 375 250 350 Balance 1015 50 -350 Weight 183 lb Intake: IV 550 Zosyn 2.25 gm In Dextrose 5% in 50 Water 50 ml @ 100 mls/hr IV Q12H [facility] Rx#:[id number] Vancomycin 1,500 mg In Sodium 500 Chloride 0.9% 500 ml @ 333.3 mls/hr IV ONCE ONE Rx#: [id number] Oral 840 300 Output: Void Amount 375 250 350 Other: Meal Lunch Percent of Meal Consumed 75% Feeding Ability Independent Urine Appearance Clear Clear Urine Color Bright Yellow Dark Yellow Urine Odor Normal Exam: General: Laying in bed, appears moderately ill Chest: Clear, no rales Cardiovascular: Regular, no murmur Abdomen: Soft, nontender Musculoskeletal: Left arm with tenderness to palpation along the forearm as well as arm. 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 Mild edema Neuro: Alert, oriented x3. Medical - PN: Obj Da - Labs CBC & Chem 7: 10/10/18 04:25 10/10/18 04:25 Labs: Abnormal Lab Results 10/10/18 10/10/18 10/09/18 04:25 04:25 20:33 RBC 2.25 L Hgb 6.8 L* Hct 20.1 L* RDW 15.8 H Gran % 82.1 H Lymph % (Auto) 4.[address] [place] % (Auto) 12.8 H Lymph # (Auto) 0.3 L Sodium 130 L Chloride 94 L 91 L Creatinine 3.7 H 3.1 H Glucose 111 H 109 H Uric Acid 2.2 L Calcium 7.3 L 7.3 L Lactate Dehydrogenase 269 H 253 H Urine Protein 10/09/18 16:30 RBC Hgb Hct RDW Gran % Lymph % (Auto) [place] % (Auto) Lymph # (Auto) Sodium Chloride Creatinine Glucose Uric Acid Calcium Lactate Dehydrogenase Urine Protein 100 A Meds: Medications Acetaminophen (Tylenol) 650 mg PO Q6HP PRN PRN Reason: PAIN/FEVER > 101 Acyclovir (Zovirax) 200 mg PO BID [facility]; Protocol Last Admin: 10/10/18 09:20 Dose: 200 mg Documented by: Allopurinol (Zyloprim) 100 mg PO QDAY [facility] Last Admin: 10/10/18 09:20 Dose: 100 mg Documented by: Amlodipine Besylate (Norvasc) 10 mg PO DAILY [facility] Last Admin: 10/10/18 09:20 Dose: 10 mg Documented by: Carvedilol (Coreg) 12.5 mg PO BIDCC [facility] Last Admin: 10/10/18 09:19 Dose: 12.5 mg Documented by: Chlorhexidine Gluconate (Peridex) 15 ml SSP BID [facility] Last Admin: 10/10/18 09:23 Dose: 15 ml Documented by: Dextrose (Dextrose 50%) 0 ml IV UD PRN PRN Reason: Hypoglycemia Diagnostic Test (Pha) (Accu-Chek) 1 each FS [facility] Last Admin: 10/10/18 09:21 Dose: 1 each Documented by: Diazepam (Valium) 5 mg PO BIDP PRN PRN Reason: Anxiety Glucose (Insta-Glucose) 15 gm PO PRN PRN PRN Reason: Hypoglycemia Heparin Sodium (Porcine) (Heparin) 5,000 unit SQ Q12 [facility] Last Admin: 10/10/18 09:20 Dose: 5,000 unit Documented by: Piperacillin Sod/Tazobactam (Sod 2.25 gm/ Dextrose) 50 mls @ 100 mls/hr IV Q12H [facility]; Protocol Last Admin: 10/10/18 09:28 Dose: 100 mls/hr Documented by: Insulin Human Lispro (Humalog) 0 unit SQ [facility]; Protocol Last Admin: 10/10/18 09:21 Dose: Not Given Documented by: Ondansetron HCl (Zofran) 4 mg IV Q6HP PRN PRN Reason: Nausea And Vomiting Oxycodone HCl (Roxicodone) 10 mg PO Q4-6HP PRN PRN Reason: pain Last Admin: 10/10/18 09:27 Dose: 10 mg Documented by: Linagliptin [ Tradjenta] 2.5 Mg Tab 1 dose PO DAILY [facility] Last Admin: 10/10/18 09:29 Dose: 1 dose Documented by: Pneumococcal Polyvalent Vaccine (Pneumovax 23) 0.5 ml IM .ONCE ONE Stop: 10/11/18 10:01 Ropinirole HCl (Requip) 1 mg PO BID@0900,1500 [facility] Last Admin: 10/10/18 09:20 Dose: 1 mg Documented by: Ropinirole HCl (Requip) 2 mg PO HS [facility] Last Admin: 10/09/18 21:32 Dose: 2 mg Documented by: Simvastatin (Zocor) 10 mg PO QPM [facility] Last Admin: 10/09/18 21:32 Dose: 10 mg Documented by: Sodium Chloride (Saline Flush) 10 ml IV Q8 [facility] Last Admin: 10/10/18 04:53 Dose: 10 ml Documented by: Trazodone HCl (Desyrel) 50 mg PO [facility] Last Admin: 10/09/18 21:33 Dose: 50 mg Documented by: Vancomycin HCl (Vancomycin Per Pharmacy) 1 order IV UD [facility]; Protocol Medical - PN: A/P (1) Fever Status: Acute Current Visit: Yes (2) Multiple myeloma Status: Chronic Current Visit: Yes (3) Anemia Status: Chronic Current Visit: Yes (4) Shoulder pain Status: Chronic Current Visit: No (5) Acute renal failure syndrome Status: Chronic Current Visit: Yes (6) Hypertension Status: Chronic Current Visit: Yes - Narrative A/P Narrative: 68-year-old male with diagnosis of multiple myeloma in mid August, subsequent acute renal failure on dialysis presents with shaking chills and fever to 100.8 in dialysis. Fever. Concerning for possible sepsis or bloodstream infection given his shaking chills and immunocompromise state with a dialysis catheter in place. He also has a spinal stimulator in place. While count was normal he does have a left shift with bands and other immature PMNs. Blood cultures have been obtained during dialysis. Differential includes bloodstream infection, viral syndrome, B symptoms secondary to his underlying malignancy. Plan: Continue with vancomycin and Zosyn, dose per levels, follow-up blood cultures. Follow-up final report of CT. Multiple myeloma. Has received chemotherapy. Is immunocompromised due to myeloma as well as therapy. Plan: Nothing further at this time. Left shoulder pain. Patient with a chronic left shoulder pain, however is acutely worsened over the last day and a half, now with pain into the forearm and arm. Concern for possible myelomatous involvement of the shoulder joint, possible infection. The arm and forearm are also somewhat swollen, concern for possible deep venous thrombosis. Plan: Follow-up CT of the shoulder and venous duplex of the upper extremity Anemia. The patient had ongoing anemia. Current hemoglobin is 6.8-6.9. He is hemodynamically stable. I initially discussed transfusion with Dr. Abrams. At this point will follow expectantly, hemoglobin continues to drop we will likely transfuse 1 unit of leuko-reduced and irradiated packed red cells. Plan: Monitor CBC. Hypertension. Stable. Plan: Continue home regimen. Type 2 diabetes. Plan: Controlled carbohydrate/renal diet, sliding scale insulin Acute kidney injury. Presented 09/08/2018 with acute kidney injury, presumptive secondary to myeloma. Still on hemodialysis. Plan: Hemodialysis per nephrology. CODE STATUS: Full code Prophylaxis: Subcu heparin
--- NOTE | 2018-10-10 13:12 | Ultrasound Report ---
CLINICAL INFORMATION: Pain and edema COMPARISON: None. FINDINGS: Jugular, brachiocephalic, visualized subclavian, brachial, radial, ulnar, antecubital, cephalic and basilic veins are all widely patent and easily compressible on color and spectral Doppler. IMPRESSION: Normal exam. No evidence of thrombus Interpreted and Authenticated by: Onesimo Gomez 10/10/18
--- NOTE | 2018-10-10 13:18 | Nephrology Consult Note ---
History of Present Illness - Reason for Consult Patient information: Note initiated : 10/10/18 at 1:11 pm Service Date, if different from initiated Date: [] Patient: Joshua Adams 68 y/o M admitted on 10/09/18 for Rule out Sepsis. Chief Complaint: [] acute renal failure (FIRE MARSHAL management ) - Chief Complaint fever - History of Present Illness 68-year-old gentleman with type 2 diabetes mellitus, hypertension, Sjogren's, chronic back pain, hyperlipidemia, recent diagnosis of multiple myeloma (diagnosed in August 2018, followed and treated by , last reported chemotherapy mid September ?09/18/2018-Cytoxan, Velcade, dexamethasone) complicated by hypercalcemia and acute renal failure (09/08/2018) requiring ongoing renal replacement therapy, V fib arrest 2018, who was admitted to the hospital for sepsis work-up on 10/09/2018. He had 2 days of chills and sweats, and was found to have a T-max of 100.8 while on dialysis. Past History Past medical history: T2DM, PETTY on FIRE MARSHAL, MM Medical History (Last Reviewed 09/26/18 @ 20:26 by Pennie Lee DO) Pancytopenia (Chronic) Constipation (Chronic) Edema (Chronic) Anemia (Chronic) Shoulder pain (Chronic) Back pain (Chronic) Left hand weakness (Chronic) JOSS (obstructive sleep apnea) (Chronic) Sjogren's disease (Chronic) BPH (benign prostatic hyperplasia) (Chronic) Acute kidney injury (Chronic) Hypercalcemia (Chronic) Altered mental status (Chronic) Acute renal failure syndrome (Chronic) Hyperkalemia (Chronic) Multiple myeloma (Chronic) Urinary hesitancy (Chronic) Nocturia (Chronic) Type 2 diabetes mellitus with unspecified diabetic retinopathy without macular edema (Chronic) Polyarthritis (Chronic) 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) RLS (restless legs syndrome) (Chronic) Impaired fasting glucose (Chronic) Dyslipidemia (Chronic) BPH w/o urinary obs/LUTS (Chronic) Insomnia (Chronic) Hypertension (Chronic) Glaucoma (Chronic) Fatty liver (Chronic) Past surgical history: Past Surgical History (Last Reviewed 09/26/18 @ 20:26 by Pennie Lee DO) History of repair of rotator cuff (Chronic) Past family history: Family History (Last Reviewed 09/26/18 @ 20:26 by Pennie Lee DO) Father Alzheimer's disease CAD (coronary artery disease) Heart disease Mother Malignant neoplasm of pancreas Other Diabetes Past social history: Social History (Last Updated 09/26/18 @ 20:46 by Pennie Lee DO) No Social History Section defined Medications and Allergies Home Medications Medication Instructions Recorded Confirmed Type ropinirole 1 mg tablet 1 mg PO .COMPLEX 05/18/17 10/09/18 History simvastatin 10 mg tablet 10 mg PO QPM 05/18/17 10/09/18 History Chlorhexidine Gluconate [Paroex] 15 ml .ROUTE BID 08/14/18 10/09/18 History Insulin Lispro [Insulin Lispro See Protocol SQ ACHS #2 insuln.pen 08/17/18 10/09/18 Rx Kwikpen U-100] amLODIPine [Norvasc] 10 mg PO DAILY #30 tab 08/17/18 10/09/18 Rx Diazepam [Valium] 5 mg PO BID PRN #30 tab 08/18/18 10/09/18 Rx acetaminophen ER 650 mg 650 mg PO Q4H tab 09/21/18 10/09/18 History tablet,extended release allopurinol 100 mg tablet 100 mg PO HS 09/21/18 10/09/18 History oxycodone 10 mg tablet 10 mg PO Q4-6H PRN #180 tab 09/26/18 10/09/18 Rx Acyclovir 200 mg PO BID 10/09/18 10/09/18 History Calcium 600-Vit D3 400 Tablet 600 unit PO DAILY 10/09/18 10/09/18 History Carvedilol 12.5 mg PO DAILY 10/09/18 10/09/18 History Tradjenta 5 mg PO DAILY 10/09/18 10/09/18 History traZODone HCL [Trazodone HCl] 50 mg PO HS 10/09/18 10/09/18 History Allergies Allergy/AdvReac Type Severity Reaction Status Date / Time No Known Drug Allergies Allergy Verified 09/26/18 10:34 Exam - Vital Signs Vital signs: Temp Pulse Resp BP Pulse Ox 36.7 C 83 16 137/74 98 10/10/18 08:00 10/10/18 08:00 10/10/18 08:00 10/10/18 08:00 10/10/18 08:00 - General Appearance General appearance: well-developed, well-nourished EENT: ATNC, hearing intact Neck: no JVD Respiratory: clear Cardiology: no rub (pale,), regular rate, regular rhythm Musculoskeletal: no cyanosis (LUE edema, pain, weakness) Results - Lab Results 10/10/18 04:25 10/10/18 04:25 Most recent lab results Calcium 7.3 mg/dl (8.6-10.4) L 10/10/18 04:25 Phosphorus 3.3 mg/dL (2.7-4.5) 10/10/18 04:25 Magnesium 1.8 mg/dL (1.6-2.5) 10/10/18 04:25 Assessment and Plan (1) Acute renal failure syndrome Status: Chronic Priority: High Qualifiers: Acute renal failure type: unspecified Qualified Code(s): N17.9 - Acute kidn ey failure, unspecified (2) Multiple myeloma Status: Acute (3) Fever Status: Acute - Narrative A/P Narrative: Per review of records secondary to multiple myeloma/hypercalcemia. On dialysis since the beginning of September 2018. This is nonoliguric PETTY. Urine output since admission was approximately 1 L. He says that this is unchanged. UPCR 1.7 g in the beginning of August. free kappa light chain 4260 Urine immunofixation with 2 monoclonal free kappa light chains Recent renal ultrasound was read as the kidneys are normal in size without definite mass or hydronephrosis, mild diffuse increased echogenicity of renal parenchyma without cortical thinning. No acute need for dialysis today. Renal function panel daily. I will assess for renal recovery daily. The decision for dialysis will be made on a daily basis based on the metabolic panel and exam. He will probably remain on 3 times a week renal replacement therapy for now Work-up for fever as follows Blood cultures still pending. Urinalysis without pyuria. CT chest with suspicion of atypical pneumonia. Further management per primary team. Anemia-hemoglobin of 6.8. The patient is pale, has fatigue. Noted that he is undergoing work-up for potential bone marrow transplant. Agree with leuko- reduced/irradiated red blood cell transfusion. Multiple myeloma-free kappa light chain 4260 Urine immunofixation with 2 monoclonal free kappa light chains managed by ; last reported chemo 09/18/2018 Consuelo Albafelix, marleni moreno
[2018-10-10] MEDS: HYDROmorphone 2 MG TABLET PO PRN ×2 (15:54→19:48)
[2018-10-10] MEDS: traZODone HCL 50 MG TABLET PO SCH (20:26)
[2018-10-10] MEDS: SIMVASTATIN 10 MG TABLET PO SCH (20:26)
[2018-10-11] MEDS: HYDROmorphone 2 MG TABLET PO PRN ×3 (01:12→11:19)
[2018-10-11] MEDS: oxyCODONE HCL 5 MG TABLET PO PRN ×3 (04:12→14:32)
[2018-10-11] MEDS: 0.9 % SODIUM CHLORIDE 10 ML SYRINGE IV SCH (04:13)
[2018-10-11 06:39] LABS: Basophils # (Auto) 0 K/mcL (0.0-0.3); Basophils % (Auto) 0.4 % (0.0-2.0); Eosinophils # (Auto) 0.1 K/mcL (0.0-0.7); Eosinophils % (Auto) 0.7 % (0.0-7.0); Granulocytes % (Auto) 84.3 % (38.0-78.0); Hematocrit 20.2 % (41.0-55.0); Hemoglobin 6.8 g/dL (13.5-16.5); Lymphocytes # (Auto) 0.3 K/mcL (1.5-4.8); Lymphocytes % (Auto) 3.7 % (15.5-49.0); Mean Cell Volume 88.6 fL (80.0-100.0); Mean Corpuscular HGB Conc 33.6 g/dL (31.0-36.0); Mean Platelet Volume 8.1 fL (7.4-10.4); Monocytes # (Auto) 0.8 K/mcL (0.1-0.9); Monocytes % (Auto) 10.9 % (1.0-12.0); Platelet Count 291 K/mcL (140-440); RBC 2.28 M/mcL (4.50-5.90); Red Cell Distribution Width 15.6 % (11.5-14.5); WBC 7.8 K/mcL (4.5-11.0)
[2018-10-11 07:22] LABS: ALT/SGPT 11 U/l (0-40); AST/SGOT 13 U/l (0-37); Albumin 3.5 gm/dL (3.2-5.2); Albumin/Globulin Ratio 1.3 (1.0-2.3); Alkaline Phosphatase 69 U/L (39-117); Bilirubin,Direct < 0.2 mg/dL (0.0-0.3); Bilirubin,Total 0.4 mg/dL (0.0-1.0); Blood Urea Nitrogen 29 mg/dl (8-23); Calcium 6.9 mg/dl (8.6-10.4); Carbon Dioxide 25 mmol/L (22-30); Chloride 92 mmol/L (96-108); Globulin 2.8 gm/dL (2.2-3.7); Glomerular Filtration Rate 11; Glucose 99 mg/dL (70-105); Lactate Dehydrogenase 261 U/L (94-250); Phosphorous 3.7 mg/dL (2.7-4.5); Triglycerides 78 mg/dl (<150); Uric Acid 4.1 mg/dL (2.5-8.0)
[2018-10-11] MEDS: INSULIN LISPRO 1 UNIT/0.01 ML UNIT SQ SCH ×2 (07:29→11:18)
[2018-10-11] MEDS: HEPARIN 5,000 UNIT/ML VIAL SQ SCH (08:52)
[2018-10-11] MEDS: amLODIPine 10 MG TABLET PO SCH (08:53)
[2018-10-11] MEDS: rOPINIRole 1 MG TABLET PO SCH ×2 (08:53→14:32)
[2018-10-11] MEDS: ACYCLOVIR 400 MG TABLET PO SCH (08:53)
[2018-10-11] MEDS: CARVEDILOL 6.25 MG TABLET PO SCH (08:54)
[2018-10-11] MEDS: CHLORHEXIDINE GLUCONATE 1 ML ORAL.SOL SSP SCH (08:54)
[2018-10-11] MEDS: ALLOPURINOL 100 MG TABLET PO SCH (08:55)
[2018-10-11] MEDS: PIPERACILLIN SODIUM/TAZOBACTAM 2.25 GM in DEXTROSE 5% IN WATER 50 ML IV SCH (08:58)
--- NOTE | 2018-10-11 08:59 | Nephrology Progress Note ---
Subjective Patient information: Note initiated : 10/11/18 at 8:57 am Service Date, if different from initiated Date: [] Patient: Joshua Adams 68 y/o M admitted on 10/09/18 for Rule out Sepsis. Chief Complaint: [PETTY, fever] Principal diagnosis: fever, multiple myeloma Interval history: new right lower extremity neuro deficit- cannot stand up without assistance, cannot move it left upper extremity remains tender and he cannot move it; had problems initiating urination. no reported incontinence. denies SOB Pertinent ROS: per interval history Objective - Vital Signs Vital signs: Vital Signs Temp Pulse Resp BP Pulse Ox 10/11/18 07:37 36.8 C 93 H 18 138/79 96 10/11/18 04:00 36.6 C 75 18 135/75 95 10/11/18 00:03 95 10/11/18 00:00 37.4 C H 78 16 131/72 90 10/10/18 20:00 37.0 C 74 18 125/66 97 10/10/18 16:23 96 10/10/18 16:00 37.4 C H 72 16 123/69 94 10/10/18 12:00 37.1 C 80 16 136/88 Intake and Output 10/10/18 10/11/18 10/11/18 21:59 05:59 13:59 Intake Total 390 400 Output Total 275 350 Balance 115 50 Intake: IV 50 Zosyn 2.25 gm In Dextrose 5% in 50 Water 50 ml @ 100 mls/hr IV Q12H [facility] Rx#:[id number] Oral 340 400 Output: Void Amount 275 350 Other: Meal Lunch Percent of Meal Consumed 100% Weight 83.552 kg Intake & Output: Intake & Output 10/10/18 10/11/18 10/11/18 21:59 05:59 13:59 Intake Total 390 400 Output Total 275 350 Balance 115 50 Weight 83.552 kg Intake: IV 50 Zosyn 2.25 gm In Dextrose 5% in 50 Water 50 ml @ 100 mls/hr IV Q12H [facility] Rx#:[id number] Oral 340 400 Output: Void Amount 275 350 Other: Meal Lunch Percent of Meal Consumed 100% - General Appearance General appearance: well-developed, well-nourished Integumentary: warm and dry (flacid paresis of right lower extremity; left upper extremity paresis, swelling ) - Lab 10/11/18 04:35 10/11/18 04:35 Most recent lab results Calcium 6.9 mg/dl (8.6-10.4) L 10/11/18 04:35 Phosphorus 3.7 mg/dL (2.7-4.5) 10/11/18 04:35 Magnesium 1.8 mg/dL (1.6-2.5) 10/11/18 04:35 Assessment and Plan (1) Acute renal failure syndrome Status: Chronic Priority: High Qualifiers: Acute renal failure type: unspecified Qualified Code(s): N17.9 - Acute kidney failure, unspecified (2) Focal neurological deficit Status: Acute Priority: High (3) Multiple myeloma Status: Acute (4) Fever Status: Resolved Priority: Low - Narrative A/P Narrative: Per review of records secondary to multiple myeloma/hypercalcemia. On dialysis since the beginning of September (2018. This is nonoliguric PETTY. Urine output remains around 1 L per 24 hours. He says this is unchanged. UPCR 1.7 g in the beginning of August. free kappa light chain 4260 Urine immunofixation with 2 monoclonal free kappa light chains Recent renal ultrasound was read as the kidneys are normal in size without definite mass or hydronephrosis, mild diffuse increased echogenicity of renal parenchyma without cortical thinning. Last dialysis 10/09/2018, well-tolerated. Plan for dialysis today 10/11/2018, 4 hours, 4K bath, 0.5-1L UF. However, dialysis should not delay the transfer to higher level of care. This was discussed with my dialysis team including criminal justice social worker. New neuro deficit developed right lower extremity weakness over night, requires 2 person assistance to stand up, on exam flaccid paresis, hyperesthesia. On top of that he has right upper extremity weakness and hyperesthesia. has a spinal stimulator, I personally called: [employer] to inquire about MRI compatibility-[facility] model number: SC-1160, serial #[id number]; the device is not MRI compatible. I called radiology the patient will have a CT of the spine. Dr. Leon's office and discussed with Clarisa- MARIE coordinator I also discussed the case with Dr. Sam, who is working on transferring the patient to higher level of care, [facility]. Discussed with Dr. Garces's staff (neurosurgery) -the doctor is currently in surgery. Work-up for fever as follows Blood cultures 10/09/2018- no growth to date. Currently on vancomycin, Zosyn managed by the primary team Urinalysis without pyuria. CT chest with suspicion of atypical pneumonia. Further management per primary team. Consider changing to vancomycin and Zosyn to azithromycin or fluoroquinolone for atypical coverage. Anemia-hemoglobin of 6.8. The patient is pale, has fatigue. Noted that he is undergoing work-up for potential bone marrow transplant. Agree with leuko- reduced/irradiated red blood cell transfusion as needed. I would like to avoid as much as possible KATELYN's in the setting of malignancy. Multiple myeloma-free kappa light chain 4260 Urine immunofixation with 2 monoclonal free kappa light chains managed by ; last reported chemo 09/18/2018 Cytoxan, Velcade, dexa methasone Approximately 40 minutes were spent coordinating his care and counseling him on his current condition.
[2018-10-11] MEDS ORDERED: PNEUMOCOCCAL 23-VAL P-SAC VAC 0.5 ML SYRINGE IM ONE (10:00)
--- NOTE | 2018-10-11 14:44 | Transfer Summary ---
Transfer Discharge Sum: Prov Patient information: Note initiated : 10/11/18 at 2:33 pm Service Date, if different from initiated Date: [] Patient: Joshua Adams 68 y/o M admitted on 10/09/18 for Rule out Sepsis. Chief Complaint: Date of admission: 10/09/18 14:29 Discharge Date: 10/11/18 Primary care physician: Pennie Lee DO Transfer Discharge Sum: Med - Medications Active and Home Medications: Home Medications ropinirole 1 mg tablet 1 mg PO .COMPLEX 05/18/17 [History Confirmed 10/09/18] simvastatin 10 mg tablet 10 mg PO QPM 05/18/17 [History Confirmed 10/09/18] Chlorhexidine Gluconate [Paroex] 15 ml .ROUTE BID 08/14/18 [History Confirmed 10/09/18] Insulin Lispro [Insulin Lispro Kwikpen U-100] See Protocol SQ ACHS #2 insuln.pen 08/17/18 [Rx Confirmed 10/09/18] amLODIPine [Norvasc] 10 mg PO DAILY #30 tab 08/17/18 [Rx Confirmed 10/09/18] Diazepam [Valium] 5 mg PO BID PRN #30 tab 08/18/18 [Rx Confirmed 10/09/18] acetaminophen ER 650 mg tablet,extended release 650 mg PO Q4H tab 09/21/18 [History Confirmed 10/09/18] allopurinol 100 mg tablet 100 mg PO HS 09/21/18 [History Confirmed 10/09/18] oxycodone 10 mg tablet 10 mg PO Q4-6H PRN #180 tab 09/26/18 [Rx Confirmed 10/09/18] Acyclovir 200 mg PO BID 10/09/18 [History Confirmed 10/09/18] Calcium 600-Vit D3 400 Tablet 600 unit PO DAILY 10/09/18 [History Confirmed 10/09/18] Carvedilol 12.5 mg PO DAILY 10/09/18 [History Confirmed 10/09/18] Tradjenta 5 mg PO DAILY 10/09/18 [History Confirmed 10/09/18] traZODone HCL [Trazodone HCl] 50 mg PO HS 10/09/18 [History Confirmed 10/09/18] Active Medications Acetaminophen (Tylenol) 650 mg PO Q6HP PRN PRN Reason: PAIN/FEVER > 101 Last Admin: 10/11/18 11:19 Dose: 650 mg Documented by: Acyclovir (Zovirax) 200 mg PO BID [facility]; Protocol Last Admin: 10/11/18 08:53 Dose: 200 mg Documented by: Allopurinol (Zyloprim) 100 mg PO QDAY [facility] Last Admin: 10/11/18 08:55 Dose: 100 mg Documented by: Amlodipine Besylate (Norvasc) 10 mg PO DAILY [facility] Last Admin: 10/11/18 08:53 Dose: 10 mg Documented by: Carvedilol (Coreg) 12.5 mg PO BIDCC [facility] Last Admin: 10/11/18 08:54 Dose: 12.5 mg Documented by: Chlorhexidine Gluconate (Peridex) 15 ml SSP BID [facility] Last Admin: 10/11/18 08:54 Dose: 15 ml Documented by: Dextrose (Dextrose 50%) 0 ml IV UD PRN PRN Reason: Hypoglycemia Diagnostic Test (Pha) (Accu-Chek) 1 each FS [facility] Last Admin: 10/11/18 11:18 Dose: 1 each Documented by: Diazepam (Valium) 5 mg PO BIDP PRN PRN Reason: Anxiety Glucose (Insta-Glucose) 15 gm PO PRN PRN PRN Reason: Hypoglycemia Heparin Sodium (Porcine) (Heparin) 5,000 unit SQ Q12 [facility] Last Admin: 10/11/18 08:52 Dose: 5,000 unit Documented by: Hydromorphone HCl (Dilaudid) 2 mg PO Q4HP PRN PRN Reason: PAIN LEVEL 3-6 Last Admin: 10/11/18 11:19 Dose: 2 mg Documented by: Piperacillin Sod/Tazobactam (Sod 2.25 gm/ Dextrose) 50 mls @ 100 mls/hr IV Q12H [facility]; Protocol Last Admin: 10/11/18 08:58 Dose: 100 mls/hr Documented by: Insulin Human Lispro (Humalog) 0 unit SQ [facility]; Protocol Last Admin: 10/11/18 11:18 Dose: 2 units Documented by: Ondansetron HCl (Zofran) 4 mg IV Q6HP PRN PRN Reason: Nausea And Vomiting Oxycodone HCl (Roxicodone) 10 mg PO Q4-6HP PRN PRN Reason: PAIN LEVEL 3-6 Last Admin: 10/11/18 08:53 Dose: 10 mg Documented by: Linagliptin [ (Tradjenta] 5 Mg Tab) 1 dose PO DAILY [facility] Last Admin: 10/11/18 08:59 Dose: 1 dose Documented by: Ropinirole HCl (Requip) 1 mg PO BID@0900,1500 [facility] Last Admin: 10/11/18 08:53 Dose: 1 mg Documented by: Ropinirole HCl (Requip) 2 mg PO HS [facility] Last Admin: 10/10/18 20:25 Dose: 2 mg Documented by: Simvastatin (Zocor) 10 mg PO QPM [facility] Last Admin: 10/10/18 20:26 Dose: 10 mg Documented by: Sodium Chloride (Saline Flush) 10 ml IV Q8 [facility] Last Admin: 10/11/18 04:13 Dose: 10 ml Documented by: Trazodone HCl (Desyrel) 50 mg PO HS [facility] Last Admin: 10/10/18 20:26 Dose: 50 mg Documented by: Vancomycin HCl (Vancomycin Per Pharmacy) 1 order IV UD [facility]; Protocol Transfer Discharge Sum: Hosp Hospital course: Transfer diagnosis 68-year-old male with diagnosis of multiple myeloma in mid August, subsequent acute renal failure on dialysis presents with shaking chills and fever to 100.8 in dialysis. * Fever of unclear etiology. Underlying malignancy related versus concerning for possible bloodstream infection in the setting of shaking chills and immunocompromise state with a dialysis catheter in place. Cultures negative so far. White count 7.8. Blood cultures as of 10/09 and 10/11 no growth to date. Currently on empiric antibiotic including vancomycin/Zosyn. He also has a spinal stimulator in place along with dialysis catheter. High probability hardware infection. Will require further work-up including but not limited to tach white blood cells scan, hardware removal, spinal MRI to exclude vertebral osteo-/discitis. * New onset right lower extremity weakness/hyperalgesia. Highly concerning for acute neurological change in the setting of underlying multiple myeloma/fever/possible cord compression. Case discussed with neurosurgery. Not amenable to MRI. However recommends transferring to tertiary center. Case discussed with [facility] neurosurgery Dr. Caban, nephrology, internal medicine resident Blayne Huertas. Appreciate an accepting this patient for further evaluation. CT spine no evidence of acute process * Recent acute kidney injury. Currently on hemodialysis. Presented 09/08/2018 with acute kidney injury, presumptive secondary to myeloma. Managed by nephrology * Multiple myeloma. Immunocompromised on chemotherapy. * Left shoulder pain. Patient with a chronic left shoulder pain, however is acutely worsened over the last 48 hours, Concern for possible myelomatous involvement of the shoulder joint, possible infection. No DVT on ultrasound, neural foraminal narrowing noted on CT shoulder. * Anemia. hemoglobin is 6.8. He is hemodynamically stable. Patient may require irradiated blood transfusion if drops below 6 * Hypertension. Stable on home regimen. * Type 2 diabetes. Controlled carbohydrate/renal diet, sliding scale insulin Brief hospital course Mr. Adams is a 68 year old M with recently diagnosed multiple myeloma, history of obstructive sleep apnea, diabetes, hypertension as well as acute kidney inj ury requiring hemodialysis. He presents from the dialysis unit for admission for evaluation of elevated temperature and shaking chills. Patient was diagnosed to myeloma in August of this year. He had acute kidney injury at that time which resolved with fluids and correction of hypercalcemia. Subsequently on September 08, he presented to the emergency department here with PETTY and a creatinine greater than 7, necessitating transfer to [facility]. He was started on dialysis at that point, and received initial chemotherapy. Patient's been dialyzing Tuesday via tunneled right IJ dialysis catheter. Last Tuesday he developed shaking chills at home and those have continued over the weekend. During dialysis, he had a temperature up to 100.8. He also is complaining of worsening of his chronic left shoulder pain. He has had rotator cuff repairs in the past, and has furthered rotator cuff injury with chronic pain for which he uses code own. However over the last 24 hours the pain has progressed down his arm, with fairly significant pain with any movement at the shoulder elbow. He cannot sisal picker objects secondary to pain in the forearm when he tries to die polisher with the hand. His notes that that arm seems swollen today. He said no headache, no vision changes, no sore throat. No shortness of breath, no cough or sputum production. No abdominal pain, no nausea or vomiting, no diarrhea. He still produces urine, has had no dysuria. He is noted no rashes. He is directly admitted from dialysis for further evaluation of shaking chills and low-grade fever, concern for sepsis in this immunocompromised patient. 9/3still with pain in the left arm and shoulder. Seems about the same as yesterday. A little bit of relief with heating pad. Has had CT of the shoulder to rule out occult infection, also included the chest likewise to rule out pneumonia that was not apparent on chest radiograph. No shaking chills, but still feels warm. 10/11-acute onset right lower extremity weakness with inability to flex hip. Hyperalgesia involving entire right lower extremity. Babinski flexor. Concerning for an acute neurological emergency/cord compression. Not amenable to contrast in light of PETTY as per nephrology. Noncon CT failed to reveal an active acute process. Case discussed with neurosurgery Dr. Caban at [facility]. Consideration for spinal stimulator removal in place. Also further neuroimaging/tagged white cells scan in the setting of fever/neurological change. Highly appreciate Dr. Blayne Huertas internal medicine resident for excepting this complex patient for further evaluation and management and consultation with neurosurgery/nephrology. Please call hospitalist service at [phone] for any questions - Time Spent with Patient Total time spent providing and/or coordinating transfer services: Greater than 30 minutes Transfer Discharge Sum: Exam - Constitutional Vitals: Vital Signs Temp Pulse Resp BP Pulse Ox 10/11/18 12:21 100.4 F H 75 18 132/68 90 10/11/18 12:04 100.4 F H 10/11/18 11:19 100.5 F H 10/11/18 10:53 100.8 F H 84 18 139/76 91 10/11/18 07:37 98.3 F 93 H 18 138/79 96 10/11/18 04:00 97.9 F 75 18 135/75 95 10/11/18 00:03 95 10/11/18 00:00 99.3 F H 78 16 131/72 90 10/10/18 20:00 98.6 F 74 18 125/66 97 10/10/18 16:23 96 10/10/18 16:00 99.3 F H 72 16 123/69 94 Intake and Output 10/11/18 10/11/18 10/11/18 05:59 13:59 21:59 Intake Total 400 600 Output Total 350 120 Balance 50 480 Intake: Oral 400 600 Output: Void Amount 350 120 Other: Meal Lunch Percent of Meal Consumed 50% Feeding Ability Assist with Tray Set Up Stool Size Moderate Stool Color Brown Stool Consistency Normal for Patient # Voids 1 # Bowel Movements 1 Transfer Discharge Sum: A/P - Plan Functional capacity at transfer: bed bound Overall status at transfer: patient is not back to baseline Disposition: [facility]
--- NOTE | 2018-10-11 16:48 | Cat Scan Report ---
CLINICAL INFORMATION: Sepsis history of multiple myeloma COMPARISON: Lumbar MRI - 03/27/2018 TECHNIQUE: 0.625 mm helical slices were obtained from the mid T12 through mid S2 vertebral bodies. Following reconstruction, 2.5 mm coronal, sagittal, and axial reformations (angle to the disc spaces) were processed. Exam was reviewed at bone and soft tissue windows.The exam was performed using radiation dose optimization techniques including, but not limited to, automated exposure control, adjustment of the mA and/or kV according to patient size and use of iterative reconstruction technique. FINDINGS: Sagittal and coronal reformatted images of the lumbar spine show anatomic alignment. Spinal stimulator battery seen the subcutaneous soft tissues overlying L2-3 with wires which extend through the T12-L1 and T11-T12 interlaminar region ascending the posterior epidural space at the edge of the film superior to T10. No evidence of wire breakage. A 2.3 cm lytic lesion in the left L3 vertebral body as increased from 11 mm on the lumbar MRI seven months ago. In addition, there is a 10 mm lytic lesion in left L5 vertebral body is new. Other scattered punctate lucent lesions throughout the lumbar spine could also represent areas of lysis. There is a 8 mm Schmorl's node in the central L5 superior endplate which is seen on the previous study. No soft tissue abnormalities. At L1-2, moderate broad disc spur complex mildly impinging the thecal sac At L2-3, moderate far lateral disc spur complex results in mild central canal and left IV foraminal narrowing site of the exiting left L2 nerve root. No change At L3-4, a moderate broad base disc spur complex with left-sided asymmetry and facet hypertrophy results in mild left IV foraminal and also right IV foraminal narrowing. There is slight impingement of the exiting L3 nerve roots. At L4-5, mild broad-based disc spur complex right-sided asymmetry and facet arthropathy result in moderate central canal and mild bilateral IV foraminal narrowing. At L5-S1, moderate broad disc spur complex results in moderate right and mild left IV foraminal narrowing mild central canal stenosis. IMPRESSION: 1. 2.3 cm lytic lesion left L3 vertebral body and 10 mm lytic lesion in the left L5 vertebral bodies with scattered punctate radiolucent foci throughout the lumbar spine are most suspicious for plasmacytomas with known multiple myeloma. No evidence of infection. 2. Multilevel degenerative change - stable Interpreted and Authenticated by: Onesimo Gomez 10/11/18
--- NOTE | 2018-10-11 19:26 | Cat Scan Report ---
CLINICAL INFORMATION: Sepsis evaluate for infection. COMPARISON: None. TECHNIQUE: 0.625 mm helical slices were obtained from the skull base through the superior T2 end plate, and following reconstruction, 2.5 mm sagittal, coronal and axial reformations were then processed. The exam was reviewed at bone and soft tissue windows. The exam was performed using radiation dose optimization techniques including, but not limited to, automated exposure control, adjustment of the mA and/or kV according to patient size and use of iterative reconstruction technique. FINDINGS: The sagittal and coronal reformatted images show 3 mm of C3 retrolisthesis due to degenerative facet disease. The remaining spine is anatomically aligned. Scattered small low-attenuation lesions are seen throughout the C2-C3 C4-C5 and C6-C7 vertebral bodies which range up to 4 mm. These may potentially represent myeloma lesions. No evidence of infection. Cervical cord normal in contour and caliber. No soft tissue abnormalities. The C2-3 disc level is normal. At C3-4, a moderate broad disc spur complex and facet arthropathy results in severe central canal and bilateral lateral recess/ IV foraminal narrowing At C4-5, moderate broad disc spur complex asymmetry facet arthropathy results in moderate left IV foraminal narrowing At C5-6, moderate broad disc spur complex with left-sided asymmetry results results in moderate left IV foraminal narrowing and mild central canal narrowing At C6-7, moderate broad disc spur complex and facet arthropathy result in moderate bilateral IV foraminal narrowing and mild central canal narrowing At C7-T1 mild broad disc protrusion appreciated IMPRESSION: 1. No evidence of infection 2. Scattered low-attenuation foci throughout the cervical vertebral bodies ranging up to 4 mm. This may represent myeloma lesions. 3. Multilevel degenerative change as described Interpreted and Authenticated by: Onesimo Gomez 10/11/18
== END 2018-10-11 15:35 | disposition short-term general hospital (02) | DRG 864 ==
LOC: MEDSUR 14:29
PROVIDERS: ADMIT Internal Medicine; ATTEND Internal Medicine

== ENCOUNTER 2018-12-15 03:57 | Inpatient (IN) ==
[2018-12-15] MEDS ORDERED: 0.9 % SODIUM CHLORIDE 1,000 ML IV ONE (04:15)
[2018-12-15] MEDS ORDERED: VANCOMYCIN 1,500 MG in 0.9 % SODIUM CHLORIDE 500 ML IV ONE (04:28)
[2018-12-15] MEDS ORDERED: LEVOFLOXACIN 750 MG/150 ML BAG IV ONE (04:28)
[2018-12-15] MEDS ORDERED: cefTRIAXone 2 GM in DEXTROSE 5% IN WATER 50 ML IV ONE (04:28)
[2018-12-15] MEDS ORDERED: PIPERACILLIN SODIUM/TAZOBACTAM 3.375 GM in DEXTROSE 5% IN WATER 50 ML IV ONE (04:28)
[2018-12-15] MEDS ORDERED: 0.9 % SODIUM CHLORIDE 1,000 ML IV SCH (04:30)
--- NOTE | 2018-12-15 04:51 | XRay Report ---
CLINICAL INFORMATION: SOB COMPARISON: 10/11/2018 FINDINGS: Right IJ double lumen catheter in stable satisfactory position. Heart size, mediastinum and pulmonary vessels are normal. A moderately densely consolidated right upper lobe infiltrate has developed since prior x-ray. A vague moderate right lower lobe infiltrate has also developed. No effusions IMPRESSION: New moderate consolidated infiltrate right upper lobe. New moderate vague infiltrate right lower lobe. Interpreted and Authenticated by: Onesimo Gomez 12/15/18
[2018-12-15 04:52] LABS: Basophils # (Auto) 0 K/mcL (0.0-0.3); Basophils % (Auto) 0 % (0.0-2.0); Eosinophils # (Auto) 0.1 K/mcL (0.0-0.7); Eosinophils % (Auto) 0.6 % (0.0-7.0); Granulocytes % (Auto) 91.9 % (38.0-78.0); Hematocrit 27.9 % (41.0-55.0); Lymphocytes # (Auto) 0.3 K/mcL (1.5-4.8); Lymphocytes % (Auto) 3.3 % (15.5-49.0); Mean Cell Volume 92.8 fL (80.0-100.0); Mean Corpuscular HGB Conc 32.3 g/dL (31.0-36.0); Mean Platelet Volume 9.2 fL (7.4-10.4); Monocytes # (Auto) 0.4 K/mcL (0.1-0.9); Monocytes % (Auto) 4.2 % (1.0-12.0); Platelet Count 292 K/mcL (140-440); Red Cell Distribution Width 22.3 % (11.5-14.5); WBC 8.4 K/mcL (4.5-11.0)
[2018-12-15 05:12] LABS: ALT/SGPT 19 U/l (0-40); AST/SGOT 15 U/l (0-37); Albumin 3.4 gm/dL (3.2-5.2); Albumin/Globulin Ratio 1.4 (1.0-2.3); Alkaline Phosphatase 93 U/L (39-117); Bilirubin,Total 0.6 mg/dL (0.0-1.0); Blood Urea Nitrogen 53 mg/dl (8-23); Calcium 7.7 mg/dl (8.6-10.4); Carbon Dioxide 23 mmol/L (22-30); Chloride 98 mmol/L (96-108); Globulin 2.5 gm/dL (2.2-3.7); Glomerular Filtration Rate 18; Glucose 299 mg/dL (70-105)
[2018-12-15 05:13] LABS: INR 1.7 (0.9-1.1); Prothrombin Time 19.6 sec (11.9-14.5)
--- NOTE | 2018-12-15 06:42 | Emergency Department Note ---
SOB HPI - General Chief Complaint: Shortness of Breath/Dyspnea Stated Complaint: Shortness of breath Time Seen by Provider: 12/15/18 04:13 Source: patient Mode of arrival: wheelchair Limitations: no limitations - History of Present Illness Is a dialysis patient injury due to multiple myeloma who is actually doing well from his myeloma and kidney standpoint. Over the last day he has had some cough and couple of episodes of vomiting and woke up tonight severely short of breath. Did not have much in way of chest pain. EMS found him to have an O2 sat in the 70s. They started CPAP. In the emergency room that was moved to BiPAP. However his first blood gas looked quite normal. Chest x-ray does show a consolidated pneumonia in the right upper and right lower lobe. He is due to have dialysis today. However there has been some talk of stopping dialysis as h e has improved. - Related Data Home Medications Medication Instructions Recorded Confirmed Chlorhexidine Gluconate [Paroex] 15 ml .ROUTE BID 08/14/18 12/15/18 acetaminophen 650 mg 650 mg PO Q4H tab 09/21/18 12/15/18 tablet,extended release allopurinol 100 mg tablet 100 mg PO HS 09/21/18 12/15/18 Calcium 600-Vit D3 400 Tablet 600 unit PO DAILY 10/09/18 12/15/18 Carvedilol 12.5 mg PO DAILY 10/09/18 12/15/18 morphine 15 mg PO Q2HP PRN 12/15/18 12/15/18 morphine [Ms Contin] 30 mg PO BID 12/15/18 12/15/18 Previous Rx's Medication Instructions Recorded Insulin Lispro [Insulin Lispro See Protocol SQ ACHS #2 insuln.pen 08/17/18 Kwikpen U-100] amLODIPine [Norvasc] 10 mg PO DAILY #30 tab 08/17/18 warfarin 5 mg tablet 5 mg PO QDAY #30 tab 10/27/18 warfarin 1 mg tablet 1 mg PO 3XW #30 tab 10/31/18 acyclovir 200 mg capsule 200 mg PO BID #60 cap 11/20/18 atorvastatin 10 mg tablet 10 mg PO QHS #90 tab 11/20/18 diltiazem HCl 360 mg 360 mg PO QDAY #90 cap 11/20/18 capsule,extended release 24 hr trazodone 50 mg tablet 50 mg PO HS #90 tab 11/20/18 diazepam 5 mg tablet 5 mg PO BID PRN #30 tab 12/04/18 linagliptin 5 mg tablet 5 mg PO QDAY #90 tab 12/12/18 ropinirole 1 mg tablet 1 mg PO .COMPLEX #120 tab 12/12/18 Allergies Allergy/AdvReac Type Severity Reaction Status Date / Time No Known Drug Allergies Allergy Verified 11/22/18 15:23 Review of Systems All systems ED: reviewed and negative except as stated. Past Medical History - Past Medical History [facility] Narrative: Medical History (Last Reviewed 12/02/18 @ 11:04 by Pennie Lee DO) Pancytopenia (Chronic) Constipation (Chronic) Edema (Chronic) Anemia (Chronic) Shoulder pain (Chronic) Back pain (Chronic) Left hand weakness (Chronic) JOSS (obstructive sleep apnea) (Chronic) Sjogren's disease (Chronic) BPH (benign prostatic hyperplasia) (Chronic) Acute kidney injury (Chronic) Hypercalcemia (Chronic) Altered mental status (Chronic) Acute renal failure syndrome (Chronic) Hyperkalemia (Chronic) Multiple myeloma (Chronic) Urinary hesitancy (Chronic) Nocturia (Chronic) Type 2 diabetes mellitus with unspecified diabetic retinopathy without macular edema (Chronic) Polyarthritis (Chronic) 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) RLS (restless legs syndrome) (Chronic) Impaired fasting glucose (Chronic) Dyslipidemia (Chronic) BPH w/o urinary obs/LUTS (Chronic) Insomnia (Chronic) Hypertension (Chronic) Glaucoma (Chronic) Fatty liver (Chronic) Past Surgical History (Last Reviewed 10/25/18 @ 20:10 by Pennie Lee DO) History of repair of rotator cuff (Chronic) Family History (Last Reviewed 10/25/18 @ 20:10 by Pennie Lee DO) Father Alzheimer's disease CAD (coronary artery disease) Heart disease Mother Malignant neoplasm of pancreas Other Diabetes Medical history: Reports: arthritis, hypertension, other (diagnoses [employer] light chain multiple myeloma) Surgical history ED: Reports: orthopedic, other, other (spinal stimulator implanted.) - Social History smoking status: Never smoker Alcohol use: Reports: Rarely Drug use: Reports: none Physical Exam Limitations: no limitations General appearance: alert Head: atraumatic Eye: Present: normal appearance ENT: Present: normal exam Neck: Present: normal inspection Chest: Present: normal inspection Respiratory: Present: rales/crackles Cardiovascular: Present: regular rate, normal rhythm, normal heart sounds Abdominal: Present: soft. Absent: distention, tenderness, guarding Extremities: Present: pedal edema Neurological: Present: alert Skin: Present: warm, dry Course Vital Signs Temperature 98.6 F 12/15/18 03:57 Pulse Rate 90 12/15/18 03:57 Respiratory Rate 23 H 12/15/18 03:57 Blood Pressure 155/69 12/15/18 03:57 Pulse Oximetry (%) 96 12/15/18 03:57 Temperature 98.6 F 12/15/18 03:57 Pulse Rate 79 12/15/18 07:26 Respiratory Rate 13 12/15/18 07:26 Blood Pressure 126/63 12/15/18 07:26 Pulse Oximetry (%) 95 12/15/18 07:26 Shortness of Breath/Dyspnea - MDM Narrative Medical decision making narrative: This patient has a consolidated pneumonia in the right upper and lower lobes. He initially was on BiPAP but has improved markedly and is now off BiPAP on 2 L of oxygen. I discussed the case with Dr. Delcid the cotton factor and she will see him in the hospital. She is considering stopping dialysis because of his improvement. Discussed case with Dr. Easley who will admit the patient to the hospital. - Lab Data Lab results reviewed: Yes I reviewed the patient's lab results. Result diagrams: 12/15/18 04:20 12/15/18 04:20 Lab Results 12/15/18 12/15/18 12/15/18 Range/Units 04:20 04:20 04:20 WBC 8.4 (4.5-11.0) K/mcL RBC 3.00 L (4.50-5.90) M/mcL Hgb 9.0 L (13.5-16.5) g/dL Hct 27.9 L (41.0-55.0) % MCV 92.8 (80.0-100.0) fL MCH 30.0 (26.0-34.0) pg MCHC 32.3 (31.0-36.0) g/dL RDW 22.3 H (11.5-14.5) % Plt Count 292 (140-440) K/mcL MPV 9.2 (7.4-10.4) fL Gran % 91.9 H (38.0-78.0) % Lymph % (Auto) 3.3 L (15.5-49.0) % [place] % (Auto) 4.2 (1.0-12.0) % Eos % (Auto) 0.6 (0.0-7.0) % Baso % (Auto) 0 (0.0-2.0) % Gran # 7.7 (1.8-8.0) K/mcL Lymph # (Auto) 0.3 L (1.5-4.8) K/mcL [place] # (Auto) 0.4 (0.1-0.9) K/mcL Eos # (Auto) 0.1 (0.0-0.7) K/mcL Baso # (Auto) 0 (0.0-0.3) K/mcL PT (11.9-14.5) sec INR (0.9-1.1) D-Dimer (0.00-0.40) ug/ml Sodium 134 (133-145) mmol/L Potassium 4.3 (3.3-5.1) mmol/L Chloride 98 (96-108) mmol/L Carbon Dioxide 23 (22-30) mmol/L Anion Gap 13.0 (8-16) BUN 53 H (8-23) mg/dl Creatinine 3.3 H (0.7-1.2) mg/dl GFR Calculation 18 Glucose 299 H (70-105) mg/dL Calcium 7.7 L (8.6-10.4) mg/dl Total Bilirubin 0.6 (0.0-1.0) mg/dL AST 15 (0-37) U/l ALT 19 (0-40) U/l Alkaline Phosphatase 93 (39-117) U/L Troponin T 0.05 H* (0-0.03) ng/ml NT-Pro-B Natriuret Pep 4339.0 H (0-125) pg/ml Total Protein 5.9 (5.9-8.4) gm/dL Albumin 3.4 (3.2-5.2) gm/dL Globulin 2.5 (2.2-3.7) gm/dL Albumin/Globulin Ratio 1.4 (1.0-2.3) 12/15/18 Range/Units 04:20 WBC (4.5-11.0) K/mcL RBC (4.50-5.90) M/mcL Hgb (13.5-16.5) g/dL Hct (41.0-55.0) % MCV (80.0-100.0) fL MCH (26.0-34.0) pg MCHC (31.0-36.0) g/dL RDW (11.5-14.5) % Plt Count (140-440) K/mcL MPV (7.4-10.4) fL Gran % (38.0-78.0) % Lymph % (Auto) (15.5-49.0) % [place] % (Auto) (1.0-12.0) % Eos % (Auto) (0.0-7.0) % Baso % (Auto) (0.0-2.0) % Gran # (1.8-8.0) K/mcL Lymph # (Auto) (1.5-4.8) K/mcL [place] # (Auto) (0.1-0.9) K/mcL Eos # (Auto) (0.0-0.7) K/mcL Baso # (Auto) (0.0-0.3) K/mcL PT 19.6 H (11.9-14.5) sec INR 1.7 H (0.9-1.1) D-Dimer 1.66 H (0.00-0.40) ug/ml Sodium (133-145) mmol/L Potassium (3.3-5.1) mmol/L Chloride (96-108) mmol/L Carbon Dioxide (22-30) mmol/L Anion Gap (8-16) BUN (8-23) mg/dl Creatinine (0.7-1.2) mg/dl GFR Calculation Glucose (70-105) mg/dL Calcium (8.6-10.4) mg/dl Total Bilirubin (0.0-1.0) mg/dL AST (0-37) U/l ALT (0-40) U/l Alkaline Phosphatase (39-117) U/L Troponin T (0-0.03) ng/ml NT-Pro-B Natriuret Pep (0-125) pg/ml Total Protein (5.9-8.4) gm/dL Albumin (3.2-5.2) gm/dL Globulin (2.2-3.7) gm/dL Albumin/Globulin Ratio (1.0-2.3) - Radiology Data Radiology results reviewed: Yes I reviewed the patient's radiology results. Disposition Pt seen by CAMPUS SUPERVISOR/PA only: No Clinical Impression: Community acquired pneumonia Disposition: Xfer As Inpt ([facility]) Condition: Good Referrals: Pennie Lee DO [Primary Care Provider] - Time of Disposition: 07:39
--- NOTE | 2018-12-15 08:31 | Internal Med History&Physical ---
Medical - H&P: [facility] Patient information: Note initiated : 12/15/18 at 8:26 am Service Date, if different from initiated Date: [] Patient: Joshua Adams a 68 y/o M admitted on for Shortness of breath. Chief Complaint: [] History of present illness: Mr. Adams is a 68 year old M Presents to the ED with cough and shortness of breath. Patient states that 2 days ago he started developing a cough with rhinorrhea as well, like he had a cold. He denied any overt shortness of breath initially. However his cough is continued in the last night he woke up severe coughing fit and severe shortness of breath could not catch his breath and felt like his arms can pass out. Arrived he had sats in the 70s. Denies any chest pain. His cough is nonproductive although he feels his phlegm down there to expectorate. Did have an episode of nausea vomiting yesterday as well. In the ED he was placed on BiPAP for period of time and subsequently wean down nasal cannula. Work-up revealed the infiltrates in the right lower and right upper lobe. INR is subtherapeutic and he is on it for atrial fibrillation. Denies any calf pain redness or swelling. He is recently diagnosed with multiple myeloma and is on medications for this with Dr. Leon. He states after taking his medications his blood sugar becomes quite elevated. His blood glucose was 299 on admit. Denies any headache fever chills. Review of Systems: Positives as above. Denies headache/fever/chills/chest or abdominal pain/diarrhea. Remaining 10 point review of system reviewed negative Medical - H&P: [facility] Medical history: Medical History (Last Reviewed 12/02/18 @ 11:04 by Pennie Lee DO) Pancytopenia (Chronic) Constipation (Chronic) Edema (Chronic) Anemia (Chronic) Shoulder pain (Chronic) Back pain (Chronic) Left hand weakness (Chronic) JOSS (obstructive sleep apnea) (Chronic) Sjogren's disease (Chronic) BPH (benign prostatic hyperplasia) (Chronic) Acute kidney injury (Chronic) Hypercalcemia (Chronic) Altered mental status (Chronic) Acute renal failure syndrome (Chronic) Hyperkalemia (Chronic) Multiple myeloma (Chronic) Urinary hesitancy (Chronic) Nocturia (Chronic) Type 2 diabetes mellitus with unspecified diabetic retinopathy without macular edema (Chronic) Polyarthritis (Chronic) 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) RLS (restless legs syndrome) (Chronic) Impaired fasting glucose (Chronic) Dyslipidemia (Chronic) BPH w/o urinary obs/LUTS (Chronic) Insomnia (Chronic) Hypertension (Chronic) Glaucoma (Chronic) Fatty liver (Chronic) Past Surgical History (Last Reviewed 10/25/18 @ 20:10 by Pennie Lee DO) History of repair of rotator cuff (Chronic) Family History (Last Reviewed 10/25/18 @ 20:10 by Pennie Lee DO) Father Alzheimer's disease CAD (coronary artery disease) Heart disease Mother Malignant neoplasm of pancreas Other Diabetes Social History (Last Updated 12/02/18 @ 11:11 by Pennie Lee DO) Social History (Last Updated 04/20/18 @ 10:10 by VIVIANE Ferris) Denies tobacco Social alcohol Embolus with a cane 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 at home with family Medical - H&P: Meds Home Medications Medication Instructions Recorded Confirmed Type Chlorhexidine Gluconate [Paroex] 15 ml .ROUTE BID 08/14/18 12/15/18 History Insulin Lispro [Insulin Lispro See Protocol SQ ACHS #2 insuln.pen 08/17/18 12/15/18 Rx Kwikpen U-100] amLODIPine [Norvasc] 10 mg PO DAILY #30 tab 08/17/18 12/15/18 Rx acetaminophen 650 mg 650 mg PO Q4H tab 09/21/18 12/15/18 History tablet,extended release allopurinol 100 mg tablet 100 mg PO HS 09/21/18 12/15/18 History Calcium 600-Vit D3 400 Tablet 600 unit PO DAILY 10/09/18 12/15/18 History Carvedilol 12.5 mg PO DAILY 10/09/18 12/15/18 History warfarin 5 mg tablet 5 mg PO QDAY #30 tab 10/27/18 12/15/18 Rx warfarin 1 mg tablet 1 mg PO 3XW #30 tab 10/31/18 12/15/18 Rx acyclovir 200 mg capsule 200 mg PO BID #60 cap 11/20/18 12/15/18 Rx atorvastatin 10 mg tablet 10 mg PO QHS #90 tab 11/20/18 12/15/18 Rx diltiazem HCl 360 mg 360 mg PO QDAY #90 cap 11/20/18 12/15/18 Rx capsule,extended release 24 hr trazodone 50 mg tablet 50 mg PO HS #90 tab 11/20/18 12/15/18 Rx diazepam 5 mg tablet 5 mg PO BID PRN #30 tab 12/04/18 12/15/18 Rx linagliptin 5 mg tablet 5 mg PO QDAY #90 tab 12/12/18 12/15/18 Rx ropinirole 1 mg tablet 1 mg PO .COMPLEX #120 tab 12/12/18 12/15/18 Rx morphine 15 mg PO Q2HP PRN 12/15/18 12/15/18 History morphine [Ms Contin] 30 mg PO BID 12/15/18 12/15/18 History Allergies Allergy/AdvReac Type Severity Reaction Status Date / Time No Known Drug Allergies Allergy Verified 11/22/18 15:23 Medical - H&P: Exam - Constitutional Vitals: Temp Pulse Resp BP Pulse Ox 98.6 F 77 18 118/80 95 12/15/18 03:57 12/15/18 08:03 12/15/18 07:46 12/15/18 08:03 12/15/18 08:03 Exam: General: Alert, Awake, No acute Distress Eyes/N/T: EOMI, PEERL, Head/Neck: neck supple, normocephalic atraumatic CV: irreg irreg,No murmurs, Pulm: right side rhonchi, no wheezing Abd: soft, nontender, +BS x4 Ext: no clubbing/cyanosis, 3+ b/l LE Neuro: Alert, no focal deficits, moves all extremities, CN 2-12 grossly intact, symmetrical strength b/l upper/lower, sensations intact b/l upper/lower Skin: warm/dry Medical - H&P: Reslt - Labs CBC & Chem 7: 12/15/18 04:20 12/15/18 04:20 Labs: Short CBC 12/15/18 Range/Units 04:20 WBC 8.4 (4.5-11.0) K/mcL Hgb 9.0 L (13.5-16.5) g/dL Hct 27.9 L (41.0-55.0) % Plt Count 292 (140-440) K/mcL BMP 12/15/18 04:20 Sodium 134 Potassium 4.3 Chloride 98 Carbon Dioxide 23 BUN 53 H Creatinine 3.3 H Glucose 299 H Calcium 7.7 L Cardiac Enzymes 12/15/18 Range/Units 04:20 Troponin T 0.05 H* (0-0.03) ng/ml Liver Function 12/15/18 Range/Units 04:20 Total Bilirubin 0.6 (0.0-1.0) mg/dL AST 15 (0-37) U/l ALT 19 (0-40) U/l Alkaline Phosphatase 93 (39-117) U/L Albumin 3.4 (3.2-5.2) gm/dL - Impressions Physical with right-sided infiltrates upper and lower Medical - H&P: A/P - Narrative A/P Narrative: A: *Acute hypoxic respiratory failure: -was on bipap, now down to NC 2L *PNA, ?aspiration component *MM: on current therapy with *Immunosuppression: 2/2 above *ESRD: follows with Dr. Abrams *AFib: -INR Subtherapeutic *DM: *HTN/HLD: *Anxiety: *Pain: *h/o JOSS but does not tolerated CPAP 2/2 Sjogren's: *Sjogren's: * P: -Zosyn/Azithro, pending BC/SC -Nephrology following -check man diff/pct -IS/Acapella -wean O2 -ST eval -cont BP meds -SSI -clarify MM meds, not listed on system yet -pt/ot -YAS's for edema -ppx: warfarin per pharm, heparin x1 full code
[2018-12-15 08:53] LABS: Anisocytosis 2+ (NONE SEEN); Band Neutrophils % 27 % (0-10); Hypochromasia 1+ (NONE SEEN); Lymphocytes % 3 % (15-49); Metamyelocytes % 1 % (0-0); Monocytes % (Manual) 4 % (1-12); Ovalocytes FEW (NONE SEEN); Platelet Estimate NORMAL (NORMAL); Poikilocytosis 2+ (NONE SEEN); Polychromasia FEW (NONE SEEN); RBC Fragments 1+ (NONE SEEN); RBC Morphology ABNORM (NORMAL); Reactive Lymphocytes 1 % (0-2); Segmented Neutrophils % 64 % (38-78); Spherocytes FEW (NONE SEEN); Tear Drop Cells 1+ (NONE SEEN)
[2018-12-15] MEDS ORDERED: WARFARIN 1 MG TABLET PO SCH (09:51)
[2018-12-15] MEDS ORDERED: POTASSIUM CHLORIDE 40 MEQ in DEXTROSE 5% IN WATER 500 ML IV PRN (09:51)
[2018-12-15] MEDS ORDERED: DEXTROSE 31 GM ORAL.SUSP PO PRN (09:51)
[2018-12-15] MEDS ORDERED: WARFARIN 5 MG TABLET PO SCH (09:51)
[2018-12-15] MEDS ORDERED: IPRATROPIUM/ALBUTEROL 3 ML AMPUL.NEB NEB PRN (09:51)
[2018-12-15] MEDS ORDERED: LACTULOSE 20 GM/30 ML ORAL.SOL PO PRN (09:51)
[2018-12-15] MEDS ORDERED: POLYETHYLENE GLYCOL 3350 17 GM PACKET PO PRN (09:51)
[2018-12-15] MEDS ORDERED: POTASSIUM CHLORIDE 20 MEQ TABLET PO PRN ×2 (09:51)
[2018-12-15] MEDS ORDERED: DEXTROSE 50% 50 ML VIAL IV PRN (09:51)
[2018-12-15] MEDS ORDERED: HEPARIN 5,000 UNIT/ML VIAL SQ ONE (09:51)
[2018-12-15] MEDS ORDERED: ONDANSETRON 4 MG/2 ML VIAL IV PRN (09:51)
[2018-12-15] MEDS ORDERED: MAGNESIUM SULFATE 2 GM/50 ML BAG IV PRN (09:51)
[2018-12-15] MEDS ORDERED: ACETAMINOPHEN 325 MG TABLET PO PRN (09:51)
[2018-12-15] MEDS ORDERED: amLODIPine 10 MG TABLET PO SCH (09:51)
[2018-12-15] MEDS ORDERED: PROMETHAZINE 25 MG TABLET PO PRN (09:51)
[2018-12-15] MEDS ORDERED: PIPERACILLIN SODIUM/TAZOBACTAM 3.375 GM in DEXTROSE 5% IN WATER 50 ML IV SCH (09:51)
[2018-12-15] MEDS ORDERED: DIAZEPAM 5 MG TABLET PO PRN (09:51)
[2018-12-15] MEDS ORDERED: CARVEDILOL 12.5 MG PO SCH (09:51)
[2018-12-15] MEDS: IPRATROPIUM/ALBUTEROL 3 ML AMPUL.NEB NEB SCH ×3 (10:53→18:06)
[2018-12-15] MEDS: DILTIAZEM 120 MG CAP.XL.24H PO SCH (11:33)
[2018-12-15] MEDS: CHLORHEXIDINE GLUCONATE 1 ML ORAL.SOL SSP SCH ×2 (11:33→21:41)
--- NOTE | 2018-12-15 11:33 | Ultrasound Report ---
CLINICAL INFORMATION: COMPARISON: None. FINDINGS: The entire deep venous system of both lower extremities including the common femoral, superficial femoral, popliteal and paired trifurcation calf veins are easily compressible and show normal venous blood flow on color and spectral Doppler. No evidence of thrombus IMPRESSION: No evidence of deep vein thrombosis in either lower extremity. 4 cm complex Nettles's cyst left popliteal fossa 5.7 cm complex Nettles cyst the right popliteal fossa Interpreted and Authenticated by: Onesimo Gomez 12/15/18
[2018-12-15] MEDS: DOCUSATE SODIUM 100 MG CAPSULE PO SCH ×2 (11:34→21:39)
[2018-12-15] MEDS: ACYCLOVIR 400 MG TABLET PO SCH ×2 (11:34→21:40)
[2018-12-15] MEDS: morphine 30 MG TAB.SR.12H PO SCH ×2 (11:34→21:41)
[2018-12-15 11:41] LABS: INR 1.9 (0.9-1.1); Prothrombin Time 21.8 sec (11.9-14.5)
[2018-12-15 11:46] LABS: C-Reactive Protein 6.1 mg/dl (0.0-0.8)
[2018-12-15 12:03] LABS: Hemoglobin A1C 6.4 % HGB (4.0-6.0)
[2018-12-15] MEDS: INSULIN LISPRO 1 UNIT/0.01 ML UNIT SQ SCH ×3 (12:08→21:40)
--- NOTE | 2018-12-15 12:39 | Nephrology Consult Note ---
History of Present Illness - Reason for Consult Patient information: Note initiated : 12/15/18 at 12:37 pm Service Date, if different from initiated Date: [] Patient: Joshua Adams 68 y/o M admitted on 12/15/18 for Shortness of breath. Chief Complaint: [] Consult date: 12/15/18 chronic renal failure - Chief Complaint shortness of breath - History of Present Illness 68-year-old male with type 2 diabetes, hypertension, Sjogren's, hyperlipidemia, multiple myeloma (diagnosed in August 2018, followed by Dr. Leon, last chemotherapy 12/14/2018), severe PETTY requiring renal replacement therapy started in September 08, 2018, history of V. fib arrest in 2018, was admitted to the hospital with shortness of breath. He started feeling unwell Tuesday, had a cough, and was brought to the hospital with shortness of breath and an oxygen saturation of 70%. He required NIV for short time, then was transitioned to nasal cannula. He was diagnosed with pneumonia and is being managed by the hospitalist team. He says that he continues to make a significant amount of urine. Last hemodialysis 12/11/2018 Review of Systems Cardiovascular: dyspnea, edema, no chest pain Respiratory: cough, dyspnea Genitourinary: no difficulty urinating Neurological: no abnormal speech, no confusion Past History Past medical history: Medical History Pancytopenia (Chronic) Constipation (Chronic) Edema (Chronic) Anemia (Chronic) Shoulder pain (Chronic) Back pain (Chronic) Left hand weakness (Chronic) JOSS (obstructive sleep apnea) (Chronic) Sjogren's disease (Chronic) BPH (benign prostatic hyperplasia) (Chronic) Acute kidney injury (Chronic) Hypercalcemia (Chronic) Altered mental status (Chronic) Acute renal failure syndrome (Chronic) Hyperkalemia (Chronic) Multiple myeloma (Chronic) Urinary hesitancy (Chronic) Nocturia (Chronic) Type 2 diabetes mellitus with unspecified diabetic retinopathy without macular edema (Chronic) Polyarthritis (Chronic) 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 Does not smoke, no illicit drug use. Medications and Allergies Home Medications Medication Instructions Recorded Confirmed Type Chlorhexidine Gluconate [Paroex] 15 ml .ROUTE BID 08/14/18 12/15/18 History Insulin Lispro [Insulin Lispro See Protocol SQ ACHS #2 insuln.pen 08/17/18 12/15/18 Rx Elvinpen U-100] acetaminophen 650 mg 650 mg PO Q4H tab 09/21/18 12/15/18 History tablet,extended release Calcium 600-Vit D3 400 Tablet 600 unit PO DAILY 10/09/18 12/15/18 History warfarin 5 mg tablet 5 mg PO QDAY #30 tab 10/27/18 12/15/18 Rx warfarin 1 mg tablet 1 mg PO 3XW #30 tab 10/31/18 12/15/18 Rx acyclovir 200 mg capsule 200 mg PO BID #60 cap 11/20/18 12/15/18 Rx atorvastatin 10 mg tablet 10 mg PO QHS #90 tab 11/20/18 12/15/18 Rx diltiazem HCl 360 mg 360 mg PO QDAY #90 cap 11/20/18 12/15/18 Rx capsule,extended release 24 hr trazodone 50 mg tablet 50 mg PO HS #90 tab 11/20/18 12/15/18 Rx diazepam 5 mg tablet 5 mg PO BID PRN #30 tab 12/04/18 12/15/18 Rx linagliptin 5 mg tablet 5 mg PO QDAY #90 tab 12/12/18 12/15/18 Rx ropinirole 1 mg tablet 1 mg PO .COMPLEX #120 tab 12/12/18 12/15/18 Rx Aspirin [Ecotrin] 325 mg PO DAILY 12/15/18 12/15/18 History Dexamethasone [Decadron] 40 mg PO WEEKLY 12/15/18 12/15/18 History Etodolac 300 mg PO TID 12/15/18 12/15/18 History Imipramine [Tofranil] 25 mg PO HS 12/15/18 12/15/18 History Ixazomib Citrate [Ninlaro] 3 mg PO .COM 12/15/18 12/15/18 History Lenalidomide [Revlimid] 2.5 mg PO DAILY 12/15/18 12/15/18 History Prochlorperazine (Pp) [Compazine 10 mg PO Q6H PRN 12/15/18 12/15/18 History (Pp)] Tamsulosin [Flomax] 0.8 mg PO HS 12/15/18 12/15/18 History morphine 15 mg PO Q2HP PRN 12/15/18 12/15/18 History morphine [Ms Contin] 60 mg PO BID 12/15/18 12/15/18 History Allergies Allergy/AdvReac Type Severity Reaction Status Date / Time No Known Drug Allergies Allergy Verified 11/22/18 15:23 Exam - Vital Signs Vital signs: Temp Pulse Resp BP Pulse Ox 36.9 C 74 15 148/74 95 12/15/18 12:01 12/15/18 12:01 12/15/18 12:01 12/15/18 12:01 12/15/18 12:01 - General Appearance General appearance: well-developed, well-nourished EENT: mucous membranes dry Respiratory: rales, course breath sounds Cardiology: edema, regular rate, regular rhythm Gastrointestinal: no tenderness Neurologic: alert and oriented x3 Results - Lab Results 12/16/18 04:19 12/16/18 04:19 Most recent lab results Calcium 7.7 mg/dl (8.6-10.4) L 12/15/18 04:20 Assessment and Plan (1) Chronic kidney disease (CKD), stage IV (severe) Status: Acute (2) Renal azotemia Status: Acute (3) Hypocalcemia Status: Acute (4) Acidosis, metabolic Status: Acute (5) Hypomagnesemia Status: Acute - Narrative A/P Narrative: This is a late entry for the consult done 12/15/2018 The patient had Severe PETTY HD dependent - since the beginning of September 2018. cast nephropathy and hypercalcemia in the setting of multiple myeloma. But probably multifactorial as he had a cardiac arrest too-> hemodynamic ATN. last HD 12/11/2018. Scr. ~ stable since Tuesday. no acute need for dialysis based on labs and exam 12/15/2018 and 12/16/2018 evaluate HD needs daily +azotemia, no bertin uremia * strict I/O * daily metabolic panel while inpatient * renal clinic follow up next week within the limitations of not having a blood gas, most likely metabolic acidosis 2/2 renal disease. *If serum bicarbonate remains below 22, please start sodium bicarbonate pills 650mg po daily. will be titrated as needed hypocalcemia, corrected calcium still below goal. hypomagnesemia makes it hard to control the hypocalcemia. * check ionized calcium. *recheck calcium level in the morning * check vitamin D; I will check him PTH outpatient * give 1 gram calcium carbonate PO bid today between meals then continue 1 gram calcium carbonate po daily between meals. titrate up as needed * start magnesium 400mg po daily anemia -managed outpatient with darbepoetin. patient resistant as he has malignancy. monitor
[2018-12-15] MEDS ORDERED: WARFARIN 3 MG TABLET PO ONE (14:00)
[2018-12-15] MEDS: 0.9 % SODIUM CHLORIDE 10 ML SYRINGE IV SCH ×2 (14:13→22:24)
[2018-12-15] MEDS: PIPERACILLIN SODIUM/TAZOBACTAM 2.25 GM in DEXTROSE 5% IN WATER 50 ML IV SCH ×2 (14:13→22:24)
[2018-12-15] MEDS: rOPINIRole 1 MG TABLET PO SCH ×2 (14:13→21:41)
[2018-12-15] MEDS: morphine 15 MG TABLET PO PRN (18:50)
[2018-12-15] MEDS ORDERED: SENNOSIDES 1 TABLET PO PRN (21:00)
[2018-12-15] MEDS ORDERED: ALLOPURINOL 100 MG TABLET PO SCH (21:00)
[2018-12-15] MEDS: FAMOTIDINE 20 MG TABLET PO SCH (21:39)
[2018-12-15] MEDS: ATORVASTATIN 20 MG TABLET PO SCH (21:39)
[2018-12-15] MEDS: traZODone HCL 50 MG TABLET PO SCH (21:39)
[2018-12-16] MEDS: morphine 15 MG TABLET PO PRN ×7 (00:48→23:46)
[2018-12-16] MEDS: IPRATROPIUM/ALBUTEROL 3 ML AMPUL.NEB NEB SCH ×3 (02:36→17:45)
[2018-12-16] MEDS: 0.9 % SODIUM CHLORIDE 10 ML SYRINGE IV SCH ×3 (05:45→21:13)
[2018-12-16] MEDS: PIPERACILLIN SODIUM/TAZOBACTAM 2.25 GM in DEXTROSE 5% IN WATER 50 ML IV SCH ×3 (05:45→21:12)
[2018-12-16 05:56] LABS: Hematocrit 24.3 % (41.0-55.0); Hemoglobin 7.8 g/dL (13.5-16.5); Mean Cell Volume 92.8 fL (80.0-100.0); Mean Corpuscular HGB Conc 32.2 g/dL (31.0-36.0); Mean Platelet Volume 9.5 fL (7.4-10.4); Platelet Count 217 K/mcL (140-440); RBC 2.62 M/mcL (4.50-5.90); Red Cell Distribution Width 23.2 % (11.5-14.5); WBC 5.7 K/mcL (4.5-11.0)
[2018-12-16 06:23] LABS: ALT/SGPT 16 U/l (0-40); AST/SGOT 11 U/l (0-37); Albumin 3.4 gm/dL (3.2-5.2); Albumin/Globulin Ratio 1.5 (1.0-2.3); Alkaline Phosphatase 62 U/L (39-117); Bilirubin,Direct < 0.2 mg/dL (0.0-0.3); Bilirubin,Total 0.4 mg/dL (0.0-1.0); Blood Urea Nitrogen 53 mg/dl (8-23); Calcium 7.1 mg/dl (8.6-10.4); Carbon Dioxide 21 mmol/L (22-30); Chloride 98 mmol/L (96-108); Globulin 2.2 gm/dL (2.2-3.7); Glomerular Filtration Rate 18; Glucose 144 mg/dL (70-105); Lactate Dehydrogenase 255 U/L (94-250); Phosphorous 4.1 mg/dL (2.7-4.5); Triglycerides 73 mg/dl (<150); Uric Acid 4.8 mg/dL (2.5-8.0)
[2018-12-16 06:26] LABS: INR 2.5 (0.9-1.1); Prothrombin Time 26.4 sec (11.9-14.5)
--- NOTE | 2018-12-16 07:45 | Internal Med Progress Note ---
Medical - PN: Subj Patient information: Note initiated : 12/16/18 at 7:38 am Service Date, if different from initiated Date: [] Patient: Joshua Adams a 68 y/o M admitted on 12/15/18 for Shortness of breath. Chief Complaint: [] Interval history: Mr. Adams is a 68 year old M Presents to the ED with cough and shortness of breath. Patient states that 2 days ago he started developing a cough with rhinorrhea as well, like he had a cold. He denied any overt shortness of breath initially. However his cough is continued in the last night he woke up severe coughing fit and severe shortness of breath could not catch his breath and felt like his arms can pass out. Arrived he had sats in the 70s. Denies any chest pain. His cough is nonproductive although he feels his phlegm down there to expectorate. Did have an episode of nausea vomiting yesterday as well. In the ED he was placed on BiPAP for period of time and subsequently wean down nasal cannula. Work-up revealed the infiltrates in the right lower and right upper lobe. INR is subtherapeutic and he is on it for atrial fibrillation. Denies any calf pain redness or swelling. He is recently diagnosed with multiple myeloma and is on medications for this with Dr. Leon. He states after taking his medications his blood sugar becomes quite elevated. His blood glucose was 299 on admit. Denies any headache fever chills. 12/16 Feeling much better today. Has nonproductive cough. Denies shortness of breath. Oxygen well on room air. Hemoglobin dropped. No gross bleeding or diarrhea. CRP improving. Calcium low repleting per nephrology. Review of Systems: denies headache/fever/chills/nausea/vomiting/chest or abdominal pain/diarrhea. Otherwise see above. - Constitutional Vitals: Vital Signs Temp Pulse Resp BP Pulse Ox 98.0 F 99 H 22 134/98 96 12/16/18 04:41 12/16/18 04:41 12/16/18 04:41 12/16/18 04:41 12/16/18 04:41 Period Temp Pulse Resp BP Sys/Katz Pulse Ox Last 24 Hr 97.8 F-98.7 F 30-99 12-29 110-163/60-98 86-97 Intake and Output 12/15/18 12/16/18 12/16/18 21:59 05:59 13:59 Intake Total 50 50 50 Output Total 0 Balance 50 50 50 Weight 88.224 kg Intake & Output: Intake & Output 12/15/18 12/16/18 12/16/18 21:59 05:59 13:59 Intake Total 50 50 50 Output Total 0 Balance 50 50 50 Weight 88.224 kg Intake: IV 50 50 50 Zosyn 2.25 gm In Dextrose 5% in 50 50 50 Water 50 ml @ 100 mls/hr IV Q8H [facility] Rx#:[id number] Output: # of times incontinent of urine 0 Other: Urine Appearance Clear Urine Color Pale # Voids 1 1 Exam: General: Alert, Awake, No acute Distress Eyes/N/T: EOMI, , Head/Neck: neck supple, CV: irreg irreg,No murmurs, Pulm: mild right side rhonchi now, improved. no wheezing Abd: soft, nontender, +BS x4 Ext: no clubbing/cyanosis, 1-2+ b/l LE improved Neuro: Alert, no focal deficits, moves all extremities, Skin: warm/dry Medical - PN: Obj Da - Labs CBC & Chem 7: 12/16/18 04:19 12/16/18 04:19 Labs: Abnormal Lab Results 12/16/18 12/16/18 12/16/18 04:19 04:19 04:19 RBC 2.62 L Hgb 7.8 L Hct 24.3 L RDW 23.2 H Gran % Lymph % (Auto) Lymph # (Auto) Band Neutrophils % Lymphocytes % Metamyelocytes % RBC Morphology Polychromasia Hypochromasia Poikilocytosis Anisocytosis Spherocytes Tear Drop Cells Ovalocytes RBC Fragments PT 26.4 H INR 2.5 H D-Dimer Carbon Dioxide Anion Gap BUN Creatinine Glucose Hemoglobin A1c Calcium Magnesium Lactate Dehydrogenase Troponin T C-Reactive Protein 4.7 H NT-Pro-B Natriuret Pep Total Protein 12/16/18 12/15/18 12/15/18 04:19 10:35 10:35 RBC Hgb Hct RDW Gran % Lymph % (Auto) Lymph # (Auto) Band Neutrophils % Lymphocytes % Metamyelocytes % RBC Morphology Polychromasia Hypochromasia Poikilocytosis Anisocytosis Spherocytes Tear Drop Cells Ovalocytes RBC Fragments PT 21.8 H INR 1.9 H D-Dimer Carbon Dioxide 21 L Anion Gap 17.0 H BUN 53 H Creatinine 3.4 H Glucose 144 H Hemoglobin A1c 6.4 H Calcium 7.1 L Magnesium 1.5 L Lactate Dehydrogenase 255 H Troponin T C-Reactive Protein 6.1 H NT-Pro-B Natriuret Pep Total Protein 5.6 L 12/15/18 12/15/18 12/15/18 04:21 04:20 04:20 RBC Hgb Hct RDW Gran % Lymph % (Auto) Lymph # (Auto) Band Neutrophils % 27 H Lymphocytes % 3 L Metamyelocytes % 1 H RBC Morphology Abnorm A Polychromasia Few A Hypochromasia 1+ A Poikilocytosis 2+ A Anisocytosis 2+ A Spherocytes Few A Tear Drop Cells 1+ A Ovalocytes Few A RBC Fragments 1+ A PT 19.6 H INR 1.7 H D-Dimer 1.66 H Carbon Dioxide Anion Gap BUN Creatinine Glucose Hemoglobin A1c Calcium Magnesium Lactate Dehydrogenase Troponin T 0.05 H* C-Reactive Protein NT-Pro-B Natriuret Pep Total Protein 12/15/18 12/15/18 04:20 04:20 RBC 3.00 L Hgb 9.0 L Hct 27.9 L RDW 22.3 H Gran % 91.9 H Lymph % (Auto) 3.3 L Lymph # (Auto) 0.3 L Band Neutrophils % Lymphocytes % Metamyelocytes % RBC Morphology Polychromasia Hypochromasia Poikilocytosis Anisocytosis Spherocytes Tear Drop Cells Ovalocytes RBC Fragments PT INR D-Dimer Carbon Dioxide Anion Gap BUN 53 H Creatinine 3.3 H Glucose 299 H Hemoglobin A1c Calcium 7.7 L Magnesium Lactate Dehydrogenase Troponin T C-Reactive Protein NT-Pro-B Natriuret Pep 4339.0 H Total Protein Meds: Medications Acetaminophen (Tylenol) 650 mg PO Q6HP PRN PRN Reason: PAIN/FEVER > 101 Acyclovir (Zovirax) 200 mg PO BID [facility] Last Admin: 12/15/18 21:40 Dose: 200 mg Documented by: Albuterol/Ipratropium (Duoneb) 3 ml NEB Q8H [facility] Last Admin: 12/16/18 02:36 Dose: 3 ml Documented by: Albuterol/Ipratropium (Duoneb) 3 ml NEB Q4HP PRN PRN Reason: Shortness Of Breath Atorvastatin Calcium (Lipitor) 10 mg PO HS [facility] Last Admin: 12/15/18 21:39 Dose: 10 mg Documented by: Chlorhexidine Gluconate (Peridex) 15 ml SSP BID [facility] Last Admin: 12/15/18 21:41 Dose: 15 ml Documented by: Dextrose (Dextrose 50%) 0 ml IV UD PRN PRN Reason: Hypoglycemia Diagnostic Test (Pha) (Accu-Chek) 1 each FS ACHS [facility] Last Admin: 12/15/18 21:38 Dose: 1 each Documented by: Diazepam (Valium) 5 mg PO BIDP PRN PRN Reason: Anxiety Diltiazem HCl (Cardizem Cd) 360 mg PO DAILY [facility] Last Admin: 12/15/18 11:33 Dose: 360 mg Documented by: Docusate Sodium (Colace) 100 mg PO BID [facility] Last Admin: 12/15/18 21:39 Dose: 100 mg Documented by: Famotidine (Pepcid) 20 mg PO HS [facility] Last Admin: 12/15/18 21:39 Dose: 20 mg Documented by: Glucose (Insta-Glucose) 15 gm PO PRN PRN PRN Reason: Hypoglycemia Potassium Chloride 40 meq/ (Dextrose) 520 mls @ 130 mls/hr IV UD PRN PRN Reason: Potassium < 3 Magnesium Sulfate (Magnesium Sulfate) 2 gm in 50 mls @ 50 mls/hr IV UD PRN PRN Reason: Magnesium </= 1.6 Ceftriaxone Sodium 2 gm/ (Dextrose) 50 mls @ 100 mls/hr IV DAILY [facility]; Protocol Piperacillin Sod/Tazobactam (Sod 2.25 gm/ Dextrose) 50 mls @ 100 mls/hr IV Q8H [facility] Last Infusion: 12/16/18 06:31 Dose: Infused Documented by: Insulin Human Lispro (Humalog) 0 unit SQ [facility]; Protocol Last Admin: 12/15/18 21:40 Dose: 4 units Documented by: Lactulose (Cephulac) 10 gm PO DAILYP PRN PRN Reason: Constipation Morphine Sulfate (Morphine) 15 mg PO Q2HP PRN; Protocol PRN Reason: Pain Last Admin: 12/16/18 04:37 Dose: 15 mg Documented by: Morphine Sulfate (Ms Contin) 30 mg PO BID [facility]; Protocol Last Admin: 12/15/18 21:41 Dose: 30 mg Documented by: Ondansetron HCl (Zofran) 4 mg IV Q4HP PRN PRN Reason: Nausea And Vomiting Polyethylene Glycol (Miralax) 17 gm PO DAILYP PRN PRN Reason: Constipation Potassium Chloride (Kdur) 40 meq PO UD PRN PRN Reason: Potssium is 3-3.5 Potassium Chloride (Kdur) 40 meq PO UD PRN PRN Reason: Potassium < 3 Promethazine HCl (Phenergan) 0 mg PO Q6HP PRN PRN Reason: Nausea And Vomiting Ropinirole HCl (Requip) 1 mg PO BID@0800,1400 [facility] Last Admin: 12/15/18 14:13 Dose: 1 mg Documented by: Ropinirole HCl (Requip) [address] [facility] Last Admin: 12/15/18 21:41 Dose: 2 mg Documented by: Senna (Senokot) 2 tab PO HSP PRN PRN Reason: Constipation Sodium Chloride (Saline Flush) 10 ml IV Q8 [facility] Last Admin: 12/16/18 05:45 Dose: 10 ml Documented by: Trazodone HCl (Desyrel) 50 mg PO [facility] Last Admin: 12/15/18 21:39 Dose: 50 mg Documented by: Warfarin Sodium (Coumadin Per Pharmacy) 1 order PO UD [facility] Medical - PN: A/P - Time Spent With Patient Total time spent is greater than 50% in coordination of care (as documented) at patient's floor/unit and/or counseling patient: - Narrative A/P Narrative: A: *Acute hypoxic respiratory failure: improved -was on bipap in ED, now room air *PNA, ?aspiration component: ST eval ok -resp viral panel only rhinovirus -CXR improved *MM: on current therapy with dexamethasone weekly, Ixazomib/Lenalidomide *Immunosuppression: 2/2 above *ESRD: follows with Dr. Abrams *Anemia, chronic: *AFib: -INR Subtherapeutic initially *DM: *HTN/HLD: *Anxiety: *Pain: *h/o JOSS but does not tolerated CPAP 2/2 Sjogren's: *Sjogren's: * P: -Zosyn/Azithro, pending BC/SC -Nephrology following -IS/Acapella -cont BP meds -SSI -hold MM meds for now given infection -pt/ot -YAS's for edema -ppx: warfarin per pharm, full code Medical - PN: Qual - VTE Deep Vein Thrombosis/Pulmonary Embolism Present on Admission: No
[2018-12-16] MEDS ORDERED: cefTRIAXone 2 GM VIAL ONE (07:46)
[2018-12-16 07:51] LABS: Anisocytosis 2+ (NONE SEEN); Band Neutrophils % 14 % (0-10); Hypochromasia 1+ (NONE SEEN); Lymphocytes % 3 % (15-49); Metamyelocytes % 2 % (0-0); Monocytes % (Manual) 12 % (1-12); Ovalocytes FEW (NONE SEEN); Platelet Estimate NORMAL (NORMAL); Poikilocytosis 2+ (NONE SEEN); Polychromasia FEW (NONE SEEN); RBC Morphology A (NORMAL); Reactive Lymphocytes 1 % (0-2); Segmented Neutrophils % 68 % (38-78); Spherocytes FEW (NONE SEEN); Tear Drop Cells 1+ (NONE SEEN)
[2018-12-16] MEDS: rOPINIRole 1 MG TABLET PO SCH ×3 (08:08→20:45)
[2018-12-16] MEDS: ACYCLOVIR 400 MG TABLET PO SCH ×2 (08:08→20:43)
[2018-12-16] MEDS: INSULIN LISPRO 1 UNIT/0.01 ML UNIT SQ SCH ×4 (08:08→20:46)
[2018-12-16] MEDS: morphine 30 MG TAB.SR.12H PO SCH ×2 (08:09→20:44)
[2018-12-16] MEDS: DOCUSATE SODIUM 100 MG CAPSULE PO SCH ×2 (08:10→20:43)
[2018-12-16] MEDS: DILTIAZEM 120 MG CAP.XL.24H PO SCH (08:10)
[2018-12-16] MEDS: cefTRIAXone 2 GM in DEXTROSE 5% IN WATER 50 ML IV SCH (08:56)
[2018-12-16] MEDS ORDERED: CALCIUM CARBONATE 500 MG TAB.CHEW CHEWED ONE (09:42)
--- NOTE | 2018-12-16 09:43 | XRay Report ---
CLINICAL INFORMATION: f/u right infiltrates COMPARISON: 12/15/2018 FINDINGS: Mild cardiomegaly is unchanged. Mediastinum and pulmonary vessels are normal. Right upper and lower lobe infiltrates are much better aerated on today's exam with modest vague residual airspace disease. Small right pleural effusion noted IMPRESSION: Marked improvement in right upper and lower lobe infiltrates since yesterday Interpreted and Authenticated by: Onesimo Gomez 12/16/18
[2018-12-16] MEDS ORDERED: MAGNESIUM OXIDE 400 MG TABLET PO ONE (09:45)
[2018-12-16] MEDS: CHLORHEXIDINE GLUCONATE 1 ML ORAL.SOL SSP SCH ×2 (10:09→20:46)
[2018-12-16] MEDS ORDERED: WARFARIN 2 MG TABLET PO ONE (14:00)
[2018-12-16] MEDS: traZODone HCL 50 MG TABLET PO SCH (20:44)
[2018-12-16] MEDS: ATORVASTATIN 20 MG TABLET PO SCH (20:45)
[2018-12-16] MEDS: FAMOTIDINE 20 MG TABLET PO SCH (20:45)
[2018-12-16] MEDS: CALCIUM CARBONATE 500 MG TAB.CHEW CHEWED SCH (21:09)
[2018-12-17] MEDS: morphine 15 MG TABLET PO PRN ×2 (02:26→07:19)
[2018-12-17] MEDS: IPRATROPIUM/ALBUTEROL 3 ML AMPUL.NEB NEB SCH ×2 (02:26→10:00)
[2018-12-17] MEDS: PIPERACILLIN SODIUM/TAZOBACTAM 2.25 GM in DEXTROSE 5% IN WATER 50 ML IV SCH (05:51)
[2018-12-17] MEDS: 0.9 % SODIUM CHLORIDE 10 ML SYRINGE IV SCH (05:51)
[2018-12-17 06:08] LABS: Hematocrit 24.3 % (41.0-55.0); Hemoglobin 7.8 g/dL (13.5-16.5); Mean Cell Volume 92.8 fL (80.0-100.0); Mean Corpuscular HGB Conc 32.1 g/dL (31.0-36.0); Mean Platelet Volume 9.4 fL (7.4-10.4); Platelet Count 230 K/mcL (140-440); RBC 2.62 M/mcL (4.50-5.90); Red Cell Distribution Width 22.8 % (11.5-14.5); WBC 4.3 K/mcL (4.5-11.0)
[2018-12-17 06:23] LABS: ALT/SGPT 19 U/l (0-40); AST/SGOT 14 U/l (0-37); Albumin 3.3 gm/dL (3.2-5.2); Albumin/Globulin Ratio 1.3 (1.0-2.3); Alkaline Phosphatase 61 U/L (39-117); Bilirubin,Direct < 0.2 mg/dL (0.0-0.3); Bilirubin,Total 0.3 mg/dL (0.0-1.0); Blood Urea Nitrogen 50 mg/dl (8-23); Carbon Dioxide 23 mmol/L (22-30); Chloride 102 mmol/L (96-108); Globulin 2.5 gm/dL (2.2-3.7); Glomerular Filtration Rate 18; Glucose 97 mg/dL (70-105); Lactate Dehydrogenase 263 U/L (94-250); Phosphorous 4.3 mg/dL (2.7-4.5); Triglycerides 81 mg/dl (<150); Uric Acid 4.6 mg/dL (2.5-8.0)
[2018-12-17 06:45] LABS: Prothrombin Time 22.9 sec (11.9-14.5)
[2018-12-17] MEDS ORDERED: CALCIUM GLUCONATE 4.65 MEQ in DEXTROSE 5% IN WATER 50 ML IV ONE (07:08)
[2018-12-17] MEDS: INSULIN LISPRO 1 UNIT/0.01 ML UNIT SQ SCH (07:31)
--- NOTE | 2018-12-17 07:47 | Internal Med Progress Note ---
Medical - PN: Subj Patient information: Note initiated : 12/17/18 at 7:44 am Service Date, if different from initiated Date: [] Patient: Joshua Adams a 68 y/o M admitted on 12/15/18 for Shortness of breath. Chief Complaint: [] Interval history: Mr. Adams is a 68 year old M Presents to the ED with cough and shortness of breath. Patient states that 2 days ago he started developing a cough with rhinorrhea as well, like he had a cold. He denied any overt shortness of breath initially. However his cough is continued in the last night he woke up severe coughing fit and severe shortness of breath could not catch his breath and felt like his arms can pass out. Arrived he had sats in the 70s. Denies any chest pain. His cough is nonproductive although he feels his phlegm down there to expectorate. Did have an episode of nausea vomiting yesterday as well. In the ED he was placed on BiPAP for period of time and subsequently wean down nasal cannula. Work-up revealed the infiltrates in the right lower and right upper lobe. INR is subtherapeutic and he is on it for atrial fibrillation. Denies any calf pain redness or swelling. He is recently diagnosed with multiple myeloma and is on medications for this with Dr. Leon. He states after taking his medications his blood sugar becomes quite elevated. His blood glucose was 299 on admit. Denies any headache fever chills. 12/16 Feeling much better today. Has nonproductive cough. Denies shortness of breath. Oxygen well on room air. Hemoglobin dropped. No gross bleeding or diarrhea. CRP improving. Calcium low repleting per nephrology. 12/17 feeling well and significantly better. Wanting to go home. Denying any cough or shortness of breath oxygen well on room air. Hemoglobin low but stable, no diarrhea or bleeding anywhere. Review of Systems: denies headache/fever/chills/nausea/vomiting/chest or abdominal pain/diarrhea. Otherwise see above. - Constitutional Vitals: Vital Signs Temp Pulse Resp BP Pulse Ox 98.6 F 73 19 151/72 93 12/17/18 04:01 12/17/18 04:22 12/17/18 04:22 12/17/18 04:01 12/17/18 04:22 Period Temp Pulse Resp BP Sys/Katz Pulse Ox Last 24 Hr 97.6 F-99.2 F 57-99 9-34 129-173/54-138 86-100 Intake and Output 12/16/18 12/17/18 12/17/18 21:59 05:59 13:59 Intake Total 340 240 50 Output Total 950 1750 350 Balance -610 -1510 -300 Weight 87.543 kg Intake & Output: Intake & Output 12/16/18 12/17/18 12/17/18 21:59 05:59 13:59 Intake Total 340 240 50 Output Total 950 1750 350 Balance -610 -1510 -300 Weight 87.543 kg Intake: IV 100 50 Zosyn 2.25 gm In Dextrose 5% in 100 50 Water 50 ml @ 100 mls/hr IV Q8H [facility] Rx#:[id number] Oral 240 240 Output: Void Amount 950 1750 350 Other: Meal Dinner Percent of Meal Consumed 100% Feeding Ability Independent Urine Appearance Clear Clear Clear Urine Color Bright Yellow Pale Pale Urine Odor Normal Stool Size Small Stool Color Brown Stool Consistency Clau Exam: General: Alert, Awake, No acute Distress Eyes/N/T: EOMI, , Head/Neck: neck supple, CV: irreg irreg,No murmurs, Pulm: lungs clear, no wheezing Abd: soft, nontender, +BS x4 Ext: no clubbing/cyanosis, 1+ b/l LE improved Neuro: Alert, no focal deficits, moves all extremities, Skin: warm/dry Medical - PN: Obj Da - Labs CBC & Chem 7: 12/17/18 04:16 12/17/18 04:16 Labs: Abnormal Lab Results 12/17/18 12/17/18 12/17/18 04:23 04:16 04:16 WBC 4.3 L RBC 2.62 L Hgb 7.8 L Hct 24.3 L RDW 22.8 H Gran % Lymph % (Auto) Lymph # (Auto) Band Neutrophils % Lymphocytes % Metamyelocytes % RBC Morphology Polychromasia Hypochromasia Poikilocytosis Anisocytosis Spherocytes Tear Drop Cells Ovalocytes RBC Fragments PT 22.9 H INR 2.0 H D-Dimer Carbon Dioxide Anion Gap BUN 50 H Creatinine 3.4 H Glucose Hemoglobin A1c Calcium 7.0 L Ionized Calcium Saadia Magnesium 1.5 L Lactate Dehydrogenase 263 H Troponin T C-Reactive Protein NT-Pro-B Natriuret Pep Total Protein 5.8 L 12/16/18 12/16/18 12/16/18 09:40 04:19 04:19 WBC RBC 2.62 L Hgb 7.8 L Hct 24.3 L RDW 23.2 H Gran % Lymph % (Auto) Lymph # (Auto) Band Neutrophils % 14 H Lymphocytes % 3 L Metamyelocytes % 2 H RBC Morphology Polychromasia Few A Hypochromasia 1+ A Poikilocytosis 2+ A Anisocytosis 2+ A Spherocytes Few A Tear Drop Cells 1+ A Ovalocytes Few A RBC Fragments PT INR D-Dimer Carbon Dioxide Anion Gap BUN Creatinine Glucose Hemoglobin A1c Calcium Ionized Calcium Saadia 0.90 L Magnesium Lactate Dehydrogenase Troponin T C-Reactive Protein 4.7 H NT-Pro-B Natriuret Pep Total Protein 12/16/18 12/16/18 12/15/18 04:19 04:19 10:35 WBC RBC Hgb Hct RDW Gran % Lymph % (Auto) Lymph # (Auto) Band Neutrophils % Lymphocytes % Metamyelocytes % RBC Morphology Polychromasia Hypochromasia Poikilocytosis Anisocytosis Spherocytes Tear Drop Cells Ovalocytes RBC Fragments PT 26.4 H 21.8 H INR 2.5 H 1.9 H D-Dimer Carbon Dioxide 21 L Anion Gap 17.0 H BUN 53 H Creatinine 3.4 H Glucose 144 H Hemoglobin A1c Calcium 7.1 L Ionized Calcium Saadia Magnesium 1.5 L Lactate Dehydrogenase 255 H Troponin T C-Reactive Protein NT-Pro-B Natriuret Pep Total Protein 5.6 L 12/15/18 12/15/18 12/15/18 10:35 04:21 04:20 WBC RBC Hgb Hct RDW Gran % Lymph % (Auto) Lymph # (Auto) Band Neutrophils % 27 H Lymphocytes % 3 L Metamyelocytes % 1 H RBC Morphology Abnorm A Polychromasia Few A Hypochromasia 1+ A Poikilocytosis 2+ A Anisocytosis 2+ A Spherocytes Few A Tear Drop Cells 1+ A Ovalocytes Few A RBC Fragments 1+ A PT 19.6 H INR 1.7 H D-Dimer 1.66 H Carbon Dioxide Anion Gap BUN Creatinine Glucose Hemoglobin A1c 6.4 H Calcium Ionized Calcium Saadia Magnesium Lactate Dehydrogenase Troponin T C-Reactive Protein 6.1 H NT-Pro-B Natriuret Pep Total Protein 12/15/18 12/15/18 12/15/18 04:20 04:20 04:20 WBC RBC 3.00 L Hgb 9.0 L Hct 27.9 L RDW 22.3 H Gran % 91.9 H Lymph % (Auto) 3.3 L Lymph # (Auto) 0.3 L Band Neutrophils % Lymphocytes % Metamyelocytes % RBC Morphology Polychromasia Hypochromasia Poikilocytosis Anisocytosis Spherocytes Tear Drop Cells Ovalocytes RBC Fragments PT INR D-Dimer Carbon Dioxide Anion Gap BUN 53 H Creatinine 3.3 H Glucose 299 H Hemoglobin A1c Calcium 7.7 L Ionized Calcium Saadia Magnesium Lactate Dehydrogenase Troponin T 0.05 H* C-Reactive Protein NT-Pro-B Natriuret Pep 4339.0 H Total Protein Meds: Medications Acetaminophen (Tylenol) 650 mg PO Q6HP PRN PRN Reason: PAIN/FEVER > 101 Acyclovir (Zovirax) 200 mg PO BID [facility] Last Admin: 12/16/18 20:43 Dose: 200 mg Documented by: Albuterol/Ipratropium (Duoneb) 3 ml NEB Q8H [facility] Last Admin: 12/17/18 02:26 Dose: 3 ml Documented by: Albuterol/Ipratropium (Duoneb) 3 ml NEB Q4HP PRN PRN Reason: Shortness Of Breath Atorvastatin Calcium (Lipitor) 10 mg PO HS [facility] Last Admin: 12/16/18 20:45 Dose: 10 mg Documented by: Calcium Carbonate/Glycine (Tums) 1,000 mg CHEWED DAILY [facility] Last Admin: 12/16/18 21:09 Dose: 1,000 mg Documented by: Chlorhexidine Gluconate (Peridex) 15 ml SSP BID [facility] Last Admin: 12/16/18 20:46 Dose: 15 ml Documented by: Dextrose (Dextrose 50%) 0 ml IV UD PRN PRN Reason: Hypoglycemia Diagnostic Test (Pha) (Accu-Chek) 1 each FS ACHS [facility] Last Admin: 12/17/18 07:31 Dose: 1 each Documented by: Diazepam (Valium) 5 mg PO BIDP PRN PRN Reason: Anxiety Last Admin: 12/16/18 21:09 Dose: 5 mg Documented by: Diltiazem HCl (Cardizem Cd) 360 mg PO DAILY [facility] Last Admin: 12/16/18 08:10 Dose: 360 mg Documented by: Docusate Sodium (Colace) 100 mg PO BID [facility] Last Admin: 12/16/18 20:43 Dose: 100 mg Documented by: Famotidine (Pepcid) 20 mg PO HS [facility] Last Admin: 12/16/18 20:45 Dose: 20 mg Documented by: Glucose (Insta-Glucose) 15 gm PO PRN PRN PRN Reason: Hypoglycemia Potassium Chloride 40 meq/ (Dextrose) 520 mls @ 130 mls/hr IV UD PRN PRN Reason: Potassium < 3 Magnesium Sulfate (Magnesium Sulfate) 2 gm in 50 mls @ 50 mls/hr IV UD PRN PRN Reason: Magnesium </= 1.6 Ceftriaxone Sodium 2 gm/ (Dextrose) 50 mls @ 100 mls/hr IV DAILY [facility]; Protocol Last Infusion: 12/16/18 10:00 Dose: Infused Documented by: Piperacillin Sod/Tazobactam (Sod 2.25 gm/ Dextrose) 50 mls @ 100 mls/hr IV Q8H [facility] Last Infusion: 12/17/18 07:06 Dose: Infused Documented by: Insulin Human Lispro (Humalog) 0 unit SQ ACHS [facility]; Protocol Last Admin: 12/17/18 07:31 Dose: Not Given Documented by: Lactulose (Cephulac) 10 gm PO DAILYP PRN PRN Reason: Constipation Morphine Sulfate (Morphine) 15 mg PO Q2HP PRN; Protocol PRN Reason: Pain Last Admin: 12/17/18 07:19 Dose: 15 mg Documented by: Morphine Sulfate (Ms Contin) 30 mg PO BID [facility]; Protocol Last Admin: 12/16/18 20:44 Dose: 30 mg Documented by: Ondansetron HCl (Zofran) 4 mg IV Q4HP PRN PRN Reason: Nausea And Vomiting Polyethylene Glycol (Miralax) 17 gm PO DAILYP PRN PRN Reason: Constipation Potassium Chloride (Kdur) 40 meq PO UD PRN PRN Reason: Potssium is 3-3.5 Potassium Chloride (Kdur) 40 meq PO UD PRN PRN Reason: Potassium < 3 Promethazine HCl (Phenergan) 0 mg PO Q6HP PRN PRN Reason: Nausea And Vomiting Ropinirole HCl (Requip) 1 mg PO BID@0800,1400 [facility] Last Admin: 12/16/18 14:21 Dose: 1 mg Documented by: Ropinirole HCl (Requip) 2 mg PO HS [facility] Last Admin: 12/16/18 20:45 Dose: 2 mg Documented by: Senna (Senokot) 2 tab PO HSP PRN PRN Reason: Constipation Sodium Chloride (Saline Flush) 10 ml IV Q8 [facility] Last Admin: 12/17/18 05:51 Dose: 10 ml Documented by: Trazodone HCl (Desyrel) 50 mg PO HS [facility] Last Admin: 12/16/18 20:44 Dose: 50 mg Documented by: Warfarin Sodium (Coumadin Per Pharmacy) 1 order PO UD [facility] Medical - PN: A/P - Time Spent With Patient Total time spent is greater than 50% in coordination of care (as documented) at patient's floor/unit and/or counseling patient: - Narrative A/P Narrative: A: *Acute hypoxic respiratory failure: improved -was on bipap in ED, now room air *PNA, ?aspiration component: ST eval ok -resp viral panel only rhinovirus -CXR improved *MM: on current therapy with dexamethasone weekly, Ixazomib/Lenalidomide *Immunosuppression: 2/2 above *ESRD: follows with Dr. Abrams *Anemia, chronic: *AFib: INR Subtherapeutic initially *DM: *HTN/HLD: *Anxiety: *Pain: *h/o JOSS but does not tolerated CPAP 2/2 Sjogren's: *Sjogren's: * P: -Zosyn/Azithro, pending BC/SC -Nephrology following -IS/Acapella -cont BP meds -SSI -hold MM meds for now given infection -pt/ot -YAS's for edema -ppx: warfarin per pharm, full code Medical - PN: Qual - VTE Deep Vein Thrombosis/Pulmonary Embolism Present on Admission: No
[2018-12-17] MEDS: rOPINIRole 1 MG TABLET PO SCH (08:17)
[2018-12-17] MEDS ORDERED: MAGNESIUM OXIDE 400 MG TABLET PO ONE (08:28)
[2018-12-17 08:34] LABS: Anisocytosis 2+ (NONE SEEN); Band Neutrophils % 12 % (0-10); Eosinophils % (Manual) 6 % (0-7); Lymphocytes % 4 % (15-49); Metamyelocytes % 2 % (0-0); Monocytes % (Manual) 16 % (1-12); Ovalocytes 1+ (NONE SEEN); Platelet Estimate NORMAL (NORMAL); Poikilocytosis 2+ (NONE SEEN); RBC Morphology A (NORMAL); Segmented Neutrophils % 60 % (38-78); Spherocytes 1+ (NONE SEEN); Tear Drop Cells 1+ (NONE SEEN)
--- NOTE | 2018-12-17 08:34 | Discharge Summary ---
Medical - DS: Prov Patient information: Note initiated : 12/17/18 at 8:29 am Service Date, if different from initiated Date: [] Patient: Joshua Adams 68 y/o M admitted on 12/15/18 for Shortness of breath. Chief Complaint: [] Date of admission: 12/15/18 09:37 Discharge date: 12/17/18 Primary care physician: Pennie Lee DO Consults: 12/15/18 Consult to Physician [CONS] Stat Comment: Consulting Provider: Torri Abrams Reason For Exam: Physician to Consult Consult to Physician [CONS] Stat Comment: Consulting Provider: Dawit Easley Reason For Exam: Physician to Consult Medical - DS: Meds - Discharge Medications Prescriptions: Amoxicillin/Potassium Clav [Augmentin] 250 mg PO Q12 #6 tab Transmission Status: Pending to [facility] Lactobacillus [Culturelle] 1 cap PO BID #60 cap Transmission Status: Pending to [facility] Active and Home Medications: Home Medications Chlorhexidine Gluconate [Paroex] 15 ml .ROUTE BID 08/14/18 [History Confirmed 12/15/18 Last Taken 10/09/18 08:00] Insulin Lispro [Insulin Lispro Kwikpen U-100] See Protocol SQ ACHS #2 insuln.pen 08/17/18 [Rx Confirmed 12/15/18 Last Taken Unknown] acetaminophen 650 mg tablet,extended release 650 mg PO Q4H tab 09/21/18 [History Confirmed 12/15/18 Last Taken Unknown] Calcium 600-Vit D3 400 Tablet 600 unit PO DAILY 10/09/18 [History Confirmed 12/15/18 Last Taken 10/09/18 08:00] warfarin 5 mg tablet 5 mg PO QDAY #30 tab 10/27/18 [Rx Confirmed 12/15/18 Last Taken Unknown] warfarin 1 mg tablet 1 mg PO 3XW #30 tab 10/31/18 [Rx Confirmed 12/15/18 Last Taken Unknown] acyclovir 200 mg capsule 200 mg PO BID #60 cap 11/20/18 [Rx Confirmed 12/15/18 Last Taken Unknown] atorvastatin 10 mg tablet 10 mg PO QHS #90 tab 11/20/18 [Rx Confirmed 12/15/18 Last Taken Unknown] diltiazem HCl 360 mg capsule,extended release 24 hr 360 mg PO QDAY #90 cap 11/20/18 [Rx Confirmed 12/15/18 Last Taken Unknown] trazodone 50 mg tablet 50 mg PO HS #90 tab 11/20/18 [Rx Confirmed 12/15/18 Last Taken Unknown] diazepam 5 mg tablet 5 mg PO BID PRN #30 tab 12/04/18 [Rx Confirmed 12/15/18 Last Taken Unknown] linagliptin 5 mg tablet 5 mg PO QDAY #90 tab 12/12/18 [Rx Confirmed 12/15/18 Last Taken Unknown] ropinirole 1 mg tablet 1 mg PO .COMPLEX #120 tab 12/12/18 [Rx Confirmed 12/15/18 Last Taken Unknown] Aspirin [Ecotrin] 325 mg PO DAILY 12/15/18 [History Confirmed 12/15/18 Last Taken Unknown] Dexamethasone [Decadron] 40 mg PO WEEKLY 12/15/18 [History Confirmed 12/15/18 Last Taken Unknown] Etodolac 300 mg PO TID 12/15/18 [History Confirmed 12/15/18 Last Taken Unknown] Imipramine [Tofranil] 25 mg PO HS 12/15/18 [History Confirmed 12/15/18 Last Taken Unknown] Ixazomib Citrate [Ninlaro] 3 mg PO .COM 12/15/18 [History Confirmed 12/15/18 Last Taken Unknown] Lenalidomide [Revlimid] 2.5 mg PO DAILY 12/15/18 [History Confirmed 12/15/18 Last Taken Unknown] Prochlorperazine (Pp) [Compazine (Pp)] 10 mg PO Q6H PRN 12/15/18 [History Confirmed 12/15/18 Last Taken Unknown] Tamsulosin [Flomax] 0.8 mg PO HS 12/15/18 [History Confirmed 12/15/18 Last Taken Unknown] morphine 15 mg PO Q2HP PRN 12/15/18 [History Confirmed 12/15/18 Last Taken Unknown] morphine [Ms Contin] 60 mg PO BID 12/15/18 [History Confirmed 12/15/18 Last Taken Unknown] Hold IXAZOMIB and LENALIDOMIDE for now, call Dr. Leon's office on tuesday regarding when to restart Medical - DS: Hosp Hospital Course: Mr. Adams is a 68 year old M Presents to the ED with cough and shortness of breath. Patient states that 2 days ago he started developing a cough with rhinorrhea as well, like he had a cold. He denied any overt shortness of breath initially. However his cough is continued in the last night he woke up severe coughing fit and severe shortness of breath could not catch his breath and felt like his arms can pass out. Arrived he had sats in the 70s. Denies any chest pain. His cough is nonproductive although he feels his phlegm down there to expectorate. Did have an episode of nausea vomiting yesterday as well. In the ED he was placed on BiPAP for period of time and subsequently wean down nasal cannula. Work-up revealed the infiltrates in the right lower and right upper lobe. INR is subtherapeutic and he is on it for atrial fibrillation. Denies any calf pain redness or swelling. He is recently diagnosed with multiple myeloma and is on medications for this with Dr. Leon. He states after taking his medications his blood sugar becomes quite elevated. His blood glucose was 299 on admit. Denies any headache fever chills. 12/16 Feeling much better today. Has nonproductive cough. Denies shortness of breath. Oxygen well on room air. Hemoglobin dropped. No gross bleeding or diarrhea. CRP improving. Calcium low repleting per nephrology. 12/17 feeling well and significantly better. Wanting to go home. Denying any cough or shortness of breath oxygen well on room air. Hemoglobin low but stable, no diarrhea or bleeding anywhere. sTable for discharge. I discussed with him that we held his multiple myeloma medications given the current infection. And instructed him to call Dr. Ho's office tomorrow morning regarding when to restart them. Discharge diagnosis: Pneumonia question aspiration component acute hypoxic respiratory failure Secondary discharge diagnosis: Multiple myeloma immunosuppression end-stage renal disease anemia chronic H fibrillation diabetes hypertension anxiety depression chronic pain - Time Spent with Patient Total time spent providing and/or coordinating discharge services: Greater than 30 minutes Medical - DS: Exam - Constitutional Vitals: Vital Signs Temp Pulse Pulse Resp BP BP Pulse Ox 12/17/18 04:22 73 19 93 12/17/18 04:01 98.6 F 71 14 151/72 99 12/17/18 02:00 95 12/17/18 00:03 78 18 99 12/17/18 00:01 97.6 F 19 163/71 12/16/18 21:02 79 27 H 159/54 96 12/16/18 20:46 66 30 H 156/72 94 12/16/18 20:32 99 H 34 H 172/77 86 L 12/16/18 20:17 16 173/76 12/16/18 20:01 72 22 173/138 97 12/16/18 20:00 99.2 F H 75 23 H 172/77 96 12/16/18 19:46 74 18 156/78 96 12/16/18 19:31 75 19 166/71 98 12/16/18 19:16 77 9 L 155/69 97 12/16/18 19:01 77 20 151/63 97 12/16/18 18:46 71 25 H 144/63 97 12/16/18 18:31 77 29 H 140/82 97 12/16/18 18:17 78 20 173/72 95 12/16/18 18:01 76 13 129/83 100 12/16/18 17:46 67 18 166/80 93 12/16/18 17:45 77 18 12/16/18 17:31 78 31 H 173/80 93 12/16/18 17:16 80 28 H 166/81 95 12/16/18 17:01 70 29 H 157/77 95 12/16/18 16:46 66 26 H 165/73 91 12/16/18 16:31 65 24 H 148/74 93 12/16/18 16:17 70 20 93 12/16/18 16:16 63 33 H 167/82 88 L 12/16/18 16:01 78 19 163/96 92 12/16/18 15:53 71 22 169/71 91 12/16/18 15:49 99.2 F H 72 20 169/71 93 12/16/18 14:00 72 93 12/16/18 12:00 98.4 F 68 26 H 145/60 90 12/16/18 10:47 77 26 H 145/60 95 12/16/18 10:31 75 22 161/65 94 12/16/18 10:16 57 L 15 141/73 94 12/16/18 10:07 73 16 12/16/18 10:01 81 21 142/76 93 12/16/18 10:00 93 12/16/18 09:01 57 L 14 148/75 94 Intake and Output 12/16/18 12/17/18 12/17/18 21:59 05:59 13:59 Intake Total 340 240 50 Output Total 950 1750 350 Balance -265 -4552 -180 Intake: IV 100 50 Zosyn 2.25 gm In Dextrose 5% in 100 50 Water 50 ml @ 100 mls/hr IV Q8H [facility] Rx#:[id number] Oral 240 240 Output: Void Amount 950 1750 350 Other: Meal Dinner Percent of Meal Consumed 100% Feeding Ability Independent Urine Appearance Clear Clear Clear Urine Color Bright Yellow Pale Pale Urine Odor Normal Stool Size Small Stool Color Brown Stool Consistency Clau Weight 87.543 kg Medical - DS: Data Labs on day of discharge: Labs from last 24 hours 12/17/18 12/17/18 12/17/18 04:23 04:16 04:16 WBC 4.3 L RBC 2.62 L Hgb 7.8 L Hct 24.3 L MCV 92.8 MCH 29.8 MCHC 32.1 RDW 22.8 H Plt Count 230 MPV 9.4 Total Counted Pending Band Neutrophils % Not Reportable Platelet Estimate Pending RBC Morphology Pending PT 22.9 H INR 2.0 H Sodium 139 Potassium 4.7 Chloride 102 Carbon Dioxide 23 Anion Gap 14.0 BUN 50 H Creatinine 3.4 H GFR Calculation 18 Glucose 97 Uric Acid 4.6 Calcium 7.0 L Ionized Calcium Saadia Phosphorus 4.3 Magnesium 1.5 L Total Bilirubin 0.3 Direct Bilirubin < 0.2 GGT 19 AST 14 ALT 19 Alkaline Phosphatase 61 Lactate Dehydrogenase 263 H Total Protein 5.8 L Albumin 3.3 Globulin 2.5 Albumin/Globulin Ratio 1.3 Triglycerides 81 25-OH Vitamin D Total 12/17/18 12/16/18 04:16 09:40 WBC RBC Hgb Hct MCV MCH MCHC RDW Plt Count MPV Total Counted Band Neutrophils % Platelet Estimate RBC Morphology PT INR Sodium Potassium Chloride Carbon Dioxide Anion Gap BUN Creatinine GFR Calculation Glucose Uric Acid Calcium Ionized Calcium Saadia 0.90 L Phosphorus Magnesium Total Bilirubin Direct Bilirubin GGT AST ALT Alkaline Phosphatase Lactate Dehydrogenase Total Protein Albumin Globulin Albumin/Globulin Ratio Triglycerides 25-OH Vitamin D Total 32.83 Preliminary micro results at discharge 12/15/18 04:55 Blood Culture - Preliminary Blood 12/15/18 05:00 Blood Culture - Preliminary Blood Medical - DS: A/P - Patient/Caregiver Discharge Instructions Activity: increase activity as tolerated Diet: Renal/Consistent Carbs - Follow up Plan Follow up with: Pennie Lee DO [Primary Care Provider] - Disposition: Home, Self-Care Prognosis: Fair Rehab Potential: Fair Overall status at discharge: patient is back to baseline Medical - DS: Qual - VTE Deep Vein Thrombosis/Pulmonary Embolism Present on Admission: No
[2018-12-17] MEDS ORDERED: LACTOBACILLUS 1 CAPSULE PO SCH (09:00)
[2018-12-17] MEDS: cefTRIAXone 2 GM in DEXTROSE 5% IN WATER 50 ML IV SCH (09:09)
[2018-12-17] MEDS: CHLORHEXIDINE GLUCONATE 1 ML ORAL.SOL SSP SCH (09:09)
[2018-12-17] MEDS: DILTIAZEM 120 MG CAP.XL.24H PO SCH (09:10)
[2018-12-17] MEDS: CALCIUM CARBONATE 500 MG TAB.CHEW CHEWED SCH (09:10)
[2018-12-17] MEDS: ACYCLOVIR 400 MG TABLET PO SCH (09:11)
[2018-12-17] MEDS: morphine 30 MG TAB.SR.12H PO SCH (09:11)
[2018-12-17] MEDS: DOCUSATE SODIUM 100 MG CAPSULE PO SCH (09:12)
== END 2018-12-17 11:30 | disposition home or self-care (01) | DRG 177 ==
LOC: ED 03:57 → ICU 09:37
PROVIDERS: ADMIT Internal Medicine; ATTEND Internal Medicine

== ENCOUNTER 2019-01-14 22:51 | Inpatient (IN) ==
[2019-01-14] MEDS ORDERED: HYDROmorphone 2 MG/ML VIAL IV SCH (23:15)
--- NOTE | 2019-01-14 23:24 | Emergency Department Note ---
General Adult HPI - General Chief complaint: Rib Pain Stated complaint: left rib pain Time Seen by Provider: 01/14/19 23:02 Mode of arrival: wheelchair - History of Present Illness HPI Narrative: This patient fell a week ago and injured his left rib cage head and neck. He came into the emergency room where CT scan of head neck and chest were negative. Over the last days developed a lot more pain in the left lower rib cage and upper abdomen without any new injury. - Related Data Home Medications Medication Instructions Recorded Confirmed Chlorhexidine Gluconate [Paroex] 15 ml .ROUTE BID 08/14/18 01/15/19 Dexamethasone [Decadron] 40 mg PO WEEKLY 12/15/18 01/15/19 Imipramine [Tofranil] 25 mg PO HS 12/15/18 01/15/19 Ixazomib Citrate [Ninlaro] 3 mg PO .COM 12/15/18 01/15/19 Lenalidomide [Revlimid] 2.5 mg PO DAILY 12/15/18 01/15/19 Prochlorperazine (Pp) [Compazine 10 mg PO Q6H PRN 12/15/18 01/15/19 (Pp)] Tamsulosin [Flomax] 0.8 mg PO HS 12/15/18 01/15/19 diazepam 5 mg tablet 5 mg PO BID PRN tab 12/25/18 01/15/19 morphine 15 mg immediate release 15 mg PO Q2HP PRN 12/25/18 01/15/19 tablet morphine 30 mg tablet,extended 60 mg PO BID 12/25/18 01/15/19 release Previous Rx's Medication Instructions Recorded Insulin Lispro [Insulin Lispro See Protocol SQ ACHS #2 insuln.pen 08/17/18 Kwikpen U-100] atorvastatin 10 mg tablet 10 mg PO QHS #90 tab 11/20/18 diltiazem HCl 360 mg 360 mg PO QDAY #90 cap 11/20/18 capsule,extended release 24 hr trazodone 50 mg tablet 50 mg PO HS #90 tab 11/20/18 linagliptin 5 mg tablet 5 mg PO QDAY #90 tab 12/12/18 ropinirole 1 mg tablet 1 mg PO .COMPLEX #120 tab 12/12/18 Lactobacillus [Culturelle] 1 cap PO BID #60 cap 12/17/18 sevelamer carbonate 800 mg tablet 800 mg PO TID #90 tab 12/29/18 acyclovir 200 mg capsule 200 mg PO BID #60 cap 01/08/19 warfarin 6 mg tablet 6 mg PO DAILY #30 tab 01/08/19 carvedilol 6.25 mg tablet 6.25 mg PO BID #60 tab 01/12/19 furosemide 40 mg tablet 40 mg PO QAM #30 tab 01/12/19 Allergies Allergy/AdvReac Type Severity Reaction Status Date / Time No Known Drug Allergies Allergy Verified 01/12/19 09:09 Review of Systems All systems ED: reviewed and negative except as stated. Past Medical History - Past Medical History [facility] Narrative: Medical History (Last Reviewed 01/14/19 @ 13:45 by Pnenie Lee DO) Pancytopenia (Chronic) Constipation (Chronic) Edema (Chronic) Anemia (Chronic) Shoulder pain (Chronic) Back pain (Chronic) Left hand weakness (Chronic) JOSS (obstructive sleep apnea) (Chronic) Sjogren's disease (Chronic) BPH (benign prostatic hyperplasia) (Chronic) Acute kidney injury (Chronic) Hypercalcemia (Chronic) Altered mental status (Chronic) Acute renal failure syndrome (Chronic) Hyperkalemia (Chronic) Multiple myeloma (Chronic) Urinary hesitancy (Chronic) Nocturia (Chronic) Type 2 diabetes mellitus with unspecified diabetic retinopathy without macular edema (Chronic) Polyarthritis (Chronic) 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) RLS (restless legs syndrome) (Chronic) Impaired fasting glucose (Chronic) Dyslipidemia (Chronic) BPH w/o urinary obs/LUTS (Chronic) Insomnia (Chronic) Hypertension (Chronic) Glaucoma (Chronic) Fatty liver (Chronic) Pneumonia (Acute) Past Surgical History (Last Reviewed 12/25/18 @ 15:47 by Pennie Lee DO) History of repair of rotator cuff (Chronic) Family History (Last Reviewed 12/25/18 @ 15:47 by Pennie Lee DO) Father Alzheimer's disease CAD (coronary artery disease) Heart disease Mother Malignant neoplasm of pancreas Other Diabetes Medical history: Reports: arthritis, hypertension, renal disease (Due to multiple myeloma. 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) Surgical history ED: Reports: orthopedic, other, other (spinal stimulator implanted.) - Social History smoking status: Never smoker Alcohol use: Reports: Rarely Drug use: Reports: none Physical Exam Limitations: no limitations General appearance: alert Head: atraumatic Eye: Present: normal appearance ENT: Present: normal exam Neck: Present: normal inspection Chest: Present: normal inspection, tenderness (Over the left lateral rib cage.) Respiratory: Present: normal lung sounds bilaterally Cardiovascular: Present: regular rate, normal rhythm, normal heart sounds Abdominal: Present: soft, tenderness, guarding. Absent: distention, rebound, rigidity Abdominal tenderness: Present: LUQ Neurological: Present: alert Psychiatric: Present: normal affect Skin: Present: warm, dry Course Vital Signs Pulse Rate 72 01/14/19 22:53 Respiratory Rate 22 01/14/19 22:53 Blood Pressure 187/73 01/14/19 22:53 Pulse Oximetry (%) 95 01/14/19 22:53 Temperature 98.2 F 01/15/19 07:19 Pulse Rate 82 01/15/19 07:19 Respiratory Rate 20 01/15/19 07:19 Blood Pressure 140/63 01/15/19 07:19 Pulse Oximetry (%) 93 01/15/19 07:19 Medical Decision Making - [facility] Narrative Medical decision making narrative: CT scan shows rib fractures of left 8 through 11. There is slight perisplenic fluid but cannot rule out splenic rupture. Unable to give the patient contrast due to his kidney disease. Patient's vital signs have been normal and stable and he does not appear to be unstable at all. I discussed the case with Dr. Seay the surgeon and Dr. Barros. We will admit him to the hospital for observation and plan to do an MRI of his abdomen tomorrow to look at the spleen. We did give him quite a bit of Dilaudid to control his pain. - Lab Data Lab results reviewed: Yes I reviewed the patient's lab results. Result diagrams: 01/15/19 00:21 01/15/19 00:21 Lab Results 01/15/19 01/15/19 Range/Units 00:21 00:21 WBC 11.2 H (4.5-11.0) K/mcL RBC 2.97 L (4.50-5.90) M/mcL Hgb 9.0 L (13.5-16.5) g/dL Hct 27.2 L (41.0-55.0) % MCV 91.5 (80.0-100.0) fL MCH 30.3 (26.0-34.0) pg MCHC 33.1 (31.0-36.0) g/dL RDW 21.9 H (11.5-14.5) % Plt Count 277 (140-440) K/mcL MPV 11.4 H (7.4-10.4) fL Gran % 74.5 (38.0-78.0) % Lymph % (Auto) 1.7 L (15.5-49.0) % [place] % (Auto) 7.1 (1.0-12.0) % Eos % (Auto) 16.7 H (0.0-7.0) % Baso % (Auto) 0 (0.0-2.0) % Gran # 8.3 H (1.8-8.0) K/mcL Lymph # (Auto) 0.2 L (1.5-4.8) K/mcL [place] # (Auto) 0.8 (0.1-0.9) K/mcL Eos # (Auto) 1.9 H (0.0-0.7) K/mcL Baso # (Auto) 0 (0.0-0.3) K/mcL Sodium 133 (133-145) mmol/L Potassium 3.7 (3.3-5.1) mmol/L Chloride 93 L (96-108) mmol/L Carbon Dioxide 21 L (22-30) mmol/L Anion Gap 19.0 H (8-16) BUN 93 H (8-23) mg/dl Creatinine 3.8 H (0.7-1.2) mg/dl GFR Calculation 15 Glucose 131 H (70-105) mg/dL Calcium 8.4 L (8.6-10.4) mg/dl Total Bilirubin 0.4 (0.0-1.0) mg/dL AST 18 (0-37) U/l ALT 22 (0-40) U/l Alkaline Phosphatase 86 (39-117) U/L Total Protein 6.6 (5.9-8.4) gm/dL Albumin 3.7 (3.2-5.2) gm/dL Globulin 2.9 (2.2-3.7) gm/dL Albumin/Globulin Ratio 1.3 (1.0-2.3) - Radiology Data Radiology results reviewed: Yes I reviewed the patient's radiology results. Disposition Pt seen by E LEARNING COORDINATOR/PA only: No Clinical Impression: Multiple rib fractures Disposition: Xfer As Outpt/Obs ([facility]) Condition: Undetermined Time of Disposition: 23:43
[2019-01-14] MEDS ORDERED: HYDROmorphone 2 MG/ML VIAL IM ONE (23:58)
[2019-01-15] MEDS ORDERED: LACTATED RINGERS 1,000 ML IV ONE (00:27)
[2019-01-15] MEDS ORDERED: HYDROmorphone 2 MG/ML VIAL IV SCH ×2 (00:45→01:00)
[2019-01-15 01:13] LABS: Basophils # (Auto) 0 K/mcL (0.0-0.3); Basophils % (Auto) 0 % (0.0-2.0); Eosinophils # (Auto) 1.9 K/mcL (0.0-0.7); Eosinophils % (Auto) 16.7 % (0.0-7.0); Granulocytes % (Auto) 74.5 % (38.0-78.0); Hematocrit 27.2 % (41.0-55.0); Lymphocytes # (Auto) 0.2 K/mcL (1.5-4.8); Lymphocytes % (Auto) 1.7 % (15.5-49.0); Mean Cell Volume 91.5 fL (80.0-100.0); Mean Corpuscular HGB Conc 33.1 g/dL (31.0-36.0); Mean Platelet Volume 11.4 fL (7.4-10.4); Monocytes # (Auto) 0.8 K/mcL (0.1-0.9); Monocytes % (Auto) 7.1 % (1.0-12.0); Platelet Count 277 K/mcL (140-440); RBC 2.97 M/mcL (4.50-5.90); Red Cell Distribution Width 21.9 % (11.5-14.5); WBC 11.2 K/mcL (4.5-11.0)
[2019-01-15 01:30] LABS: ALT/SGPT 22 U/l (0-40); AST/SGOT 18 U/l (0-37); Albumin 3.7 gm/dL (3.2-5.2); Albumin/Globulin Ratio 1.3 (1.0-2.3); Alkaline Phosphatase 86 U/L (39-117); Bilirubin,Total 0.4 mg/dL (0.0-1.0); Blood Urea Nitrogen 93 mg/dl (8-23); Calcium 8.4 mg/dl (8.6-10.4); Carbon Dioxide 21 mmol/L (22-30); Chloride 93 mmol/L (96-108); Globulin 2.9 gm/dL (2.2-3.7); Glomerular Filtration Rate 15; Glucose 131 mg/dL (70-105)
[2019-01-15] MEDS ORDERED: ONDANSETRON 4 MG/2 ML VIAL IV PRN (02:05)
[2019-01-15] MEDS ORDERED: AZITHROMYCIN 500 MG in DEXTROSE 5% IN WATER 250 ML IV ONE (02:07)
[2019-01-15] MEDS ORDERED: cefTRIAXone 1 GM VIAL IV ONE (02:07)
[2019-01-15] MEDS ORDERED: HYDROmorphone 2 MG/ML VIAL IV PRN (02:09)
[2019-01-15] MEDS: HYDROmorphone 2 MG/ML VIAL IV PRN ×7 (03:23→13:58)
[2019-01-15] MEDS: LACTATED RINGERS 1,000 ML IV SCH ×3 (03:24→13:58)
--- NOTE | 2019-01-15 06:12 | Cat Scan Report ---
CLINICAL INFORMATION: History of multiple myeloma. Trauma with left rib pain COMPARISON: None. TECHNIQUE: Axial images were obtained through the abdomen and pelvis. Sagittally and coronally reformatted images. FINDINGS: Lung bases:There are fractures of the left eighth, ninth, 10th ribs posteriorly. Ribs cephalad to the T8 level are not imaged. There is a small left pleural effusion consistent with hemothorax. No left pneumothorax identified at the lung base. Chest is not otherwise imaged. There is no pericardial effusion. There is severe coronary artery calcification. Mild bibasilar infiltrates or atelectasis. Liver:No hepatic abnormality. Contrast material was not administered. There is no perihepatic hemorrhage. Gallbladder, billary:No calcified gallstones. No pericholecystic abnormality. No dilated bile ducts Spleen:There is minimal perisplenic fluid. A definite splenic laceration is not identified but contrast material was not administered and sensitivity is limited. Pancreas:Negative. No pancreatic mass. No peripancreatic abnormality Adrenal glands:Negative Kidneys, ureters, bladder:Kidneys are negative to the limits of noncontrast enhanced examination. No obstructing or nonobstructing calculi. No hydronephrosis. There is no hydroureter. No ureteral stone. No bladder calculus Gastrointestinal:Colon is negative. There is no diverticulitis. No detectable colonic mass. There is no appendicitis. There is prominent fecal material suggesting constipation. Small bowel is negative. No mechanical small bowel obstruction Vascular:There is calcification of the abdominal aorta. No abdominal aortic aneurysm Lymphatic:No retroperitoneal, para-aortic adenopathy. There is no mesenteric adenopathy Mesentery, peritoneum:There is minimal perisplenic fluid. There is no significant hemoperitoneum. There is no pneumoperitoneum Reproductive:Prostate is not enlarged Musculoskeletal:Small umbilical hernia with slight colonic protrusion. No bowel obstruction. No incarceration. No inguinal hernia. Lumbar spine is abnormal. There is severe multilevel degenerative disc disease. There is a permeative pattern within the lumbar spine and sacrum consistent with myeloma. No sacral fracture. No pelvic fracture. Hips are negative. Examination was initially interpreted by [facility] IMPRESSION: 1. Fractures of the left eighth through ninth ribs. Ribs cephalad to this are not imaged 2. Small left pleural fluid collection may be hemothorax 3. Minimal perisplenic fluid. No detectable splenic laceration but contrast material was not administered and sensitivity is limited The exam was performed using radiation dose optimization techniques including, but not limited to, automated exposure control, adjustment of the mA and/or kV according to patient size and use of iterative reconstruction technique. Interpreted and Authenticated by: Onesimo Shay 01/15/19
[2019-01-15] MEDS ORDERED: LACTATED RINGERS 1,000 ML IV SCH (09:30)
[2019-01-15] MEDS ORDERED: LIDOCAINE PATCH TOPICAL SCH (10:00)
--- NOTE | 2019-01-15 10:21 | Internal Med History&Physical ---
Medical - H&P: HPI Patient information: Note initiated : 01/15/19 at 10:15 am Service Date, if different from initiated Date: [] Patient: Joshua Adams a 69 y/o M admitted on 01/15/19 for left rib pain. Chief Complaint: [] Chief complaint: Left subchondral pain History of present illness: Mr. Adams is a 69 year old M with a history of multiple myeloma/recent hemodialysis currently now off dialysis since a month and managed by nephrology. Patient fell a week ago at a sidewalk outside of [employer] tripping and sustaining injury to his chest and head. He was evaluated in the ER initial wo rk-up was unremarkable with negative CT scans. He was discharged on the second and followed up with his primary care physician 5th. He continued to experience significant left-sided lower chest and upper abdominal pain that was not relieved with pain medications. He denies associated respiratory distress, fever however his pain intensified to 8 out of 10-10 out of 10 worsening with breathing and movement without further trauma. During his second visit early this morning findings are suspicious of splenic rupture. CT suggestive of 8 9 and 10 left rib fractures. Hospitalist service was consulted after surgical consultation was sought. Patient will undergo MRI and further surgical evaluation if needed. Alert evaluation patient is alert and oriented. He is in significant discomfort requiring pain medications. He denies respiratory events including lightheadedness dizziness chest palpitation and attributes fall to getting off balance. Patient is currently on Coumadin. Will be reversed if there is evidence of splenic rupture or internal hemorrhage Review of systems A 10 point review system was performed and is negative except for ones cussed above Medical - H&P: PMH Medical history: Transient hemodialysis and currently off HD since early December 2018-follows up with nephrology Multiple myeloma follows up with Dr. Burkett History of V. fib cardiac arrest 2019 FILM [employer] September 2018 to December 2018 Pancytopenia (Chronic) Constipation (Chronic) Edema (Chronic) Anemia (Chronic) Shoulder pain (Chronic) Back pain (Chronic) Left hand weakness (Chronic) JOSS (obstructive sleep apnea) (Chronic) Sjogren's disease (Chronic) BPH (benign prostatic hyperplasia) (Chronic) Acute kidney injury (Chronic) Hypercalcemia (Chronic) Calvarium lesions and CA = 17 with presumed ARF = myeloma related disease till proven otherwise Altered mental status (Chronic) Acute renal failure syndrome (Chronic) Hyperkalemia (Chronic) Multiple myeloma (Chronic) Urinary hesitancy (Chronic) Nocturia (Chronic) Type 2 diabetes mellitus with unspecified diabetic retinopathy without macular edema (Chronic) Polyarthritis (Chronic) 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) RLS (restless legs syndrome) (Chronic) Impaired fasting glucose (Chronic) Dyslipidemia (Chronic) BPH w/o urinary obs/LUTS (Chronic) Insomnia (Chronic) Hypertension (Chronic) Glaucoma (Chronic) Fatty liver (Chronic) Pneumonia (Acute) Surgical History History of repair of rotator cuff (Chronic) Family History Father Alzheimer's disease CAD (coronary artery disease) Heart disease Mother Malignant neoplasm of pancreas Other Diabetes Social History marital status: occupational status: retired smoking status: Never smoker alcohol intake frequency: a few times a week substance use type: does not use Medical - H&P: Meds Home Medications Medication Instructions Recorded Confirmed Type Chlorhexidine Gluconate [Paroex] 15 ml .ROUTE BID 08/14/18 01/15/19 History Insulin Lispro [Insulin Lispro See Protocol SQ ACHS #2 insuln.pen 08/17/18 01/15/19 Rx Kwikpen U-100] atorvastatin 10 mg tablet 10 mg PO QHS #90 tab 11/20/18 01/15/19 Rx diltiazem HCl 360 mg 360 mg PO QDAY #90 cap 11/20/18 01/15/19 Rx capsule,extended release 24 hr trazodone 50 mg tablet 50 mg PO HS #90 tab 11/20/18 01/15/19 Rx linagliptin 5 mg tablet 5 mg PO QDAY #90 tab 12/12/18 01/15/19 Rx ropinirole 1 mg tablet 1 mg PO .COMPLEX #120 tab 12/12/18 01/15/19 Rx Dexamethasone [Decadron] 40 mg PO WEEKLY 12/15/18 01/15/19 History Imipramine [Tofranil] 25 mg PO HS 12/15/18 01/15/19 History Ixazomib Citrate [Ninlaro] 3 mg PO .COM 12/15/18 01/15/19 History Lenalidomide [Revlimid] 2.5 mg PO DAILY 12/15/18 01/15/19 History Prochlorperazine (Pp) [Compazine 10 mg PO Q6H PRN 12/15/18 01/15/19 History (Pp)] Tamsulosin [Flomax] 0.8 mg PO HS 12/15/18 01/15/19 History Lactobacillus [Culturelle] 1 cap PO BID #60 cap 12/17/18 01/15/19 Rx diazepam 5 mg tablet 5 mg PO BID PRN tab 12/25/18 01/15/19 History morphine 15 mg immediate release 15 mg PO Q2HP PRN 12/25/18 01/15/19 History tablet morphine 30 mg tablet,extended 60 mg PO BID 12/25/18 01/15/19 History release sevelamer carbonate 800 mg tablet 800 mg PO TID #90 tab 12/29/18 01/15/19 Rx acyclovir 200 mg capsule 200 mg PO BID #60 cap 01/08/19 01/15/19 Rx warfarin 6 mg tablet 6 mg PO DAILY #30 tab 01/08/19 01/15/19 Rx carvedilol 6.25 mg tablet 6.25 mg PO BID #60 tab 01/12/19 01/15/19 Rx furosemide 40 mg tablet 40 mg PO QAM #30 tab 01/12/19 01/15/19 Rx HYDROcodone/APAP 5/325MG [[place] 1 - 2 tab PO Q4HP PRN #30 tab 01/17/19 Rx 5-325Mg] Levofloxacin [Levaquin] 750 mg PO DAILY #5 tab 01/17/19 Rx Allergies Allergy/AdvReac Type Severity Reaction Status Date / Time No Known Drug Allergies Allergy Verified 01/12/19 09:09 Medical - H&P: Exam - Constitutional Vitals: Temp Pulse Resp BP Pulse Ox 98.2 F 82 20 140/63 93 01/15/19 07:19 01/15/19 08:05 01/15/19 08:05 01/15/19 07:19 01/15/19 08:05 General appearance: moderate distress Exam: Alert and oriented Head normocephalic Oral cavity dry No ear nose discharge Neck no lymphadenopathy S1-S2 regular rhythm Diminished breath sounds bases Abdomen exquisitely tender left hypochondrium with active guarding Lower extremity minimal lymphedema but no cyanosis or clubbing Skin no suspicious lesion Psych anxious but alert cooperative Neuro no focal Medical - H&P: Reslt - Labs CBC & Chem 7: 01/15/19 00:21 12/09/19 00:21 Labs: Short CBC 01/15/19 Range/Units 00:21 WBC 11.2 H (4.5-11.0) K/mcL Hgb 9.0 L (13.5-16.5) g/dL Hct 27.2 L (41.0-55.0) % Plt Count 277 (140-440) K/mcL BMP 01/15/19 00:21 Sodium 133 Potassium 3.7 Chloride 93 L Carbon Dioxide 21 L BUN 93 H Creatinine 3.8 H Glucose 131 H Calcium 8.4 L Liver Function 01/15/19 Range/Units 00:21 Total Bilirubin 0.4 (0.0-1.0) mg/dL AST 18 (0-37) U/l ALT 22 (0-40) U/l Alkaline Phosphatase 86 (39-117) U/L Albumin 3.7 (3.2-5.2) gm/dL Medical - H&P: A/P (1) Fracture of two ribs of left side Current visit: Yes Status: Acute * Fracture left eighth and ninth rib, secondary to fall with no evidence of pneumothorax on CT, small left pleural fluid possibly hemothorax * Suspected splenic injury-MRI abdomen, hold anticoagulation * Pain management currently on opioids * History multiple myeloma chronic disease managed by nephrology * Coronary artery disease status post V. fib arrest currently on Coreg/statin * DM type II continue CCD/prandial insulin/linagliptin * BPH on Flomax * Anticoagulation currently on hold. * Hypertension continue Coreg/diltiazem * Full code * Prophylaxis, Coumadin on hold. Continue SCDs Plan * Surgery consult * MRI abdomen * Primary condition management as above * Inpatient admit Medical - H&P: Qual - VTE Deep Vein Thrombosis/Pulmonary Embolism Present on Admission: No
--- NOTE | 2019-01-15 14:05 | Cat Scan Report ---
CLINICAL INFORMATION: Multiple myeloma. Fall. Left rib pain. COMPARISON: Previous chest CT scan dated 01/08/2019. Previous abdominal and pelvic CT scan dated 01/15/2019. TECHNIQUE: Axial noncontrast enhanced images through the chest. Sagittally and coronally reformatted images. MIP reformatted images. Intravenous contrast material could not be administered due to elevated creatinine FINDINGS: Lungs:There are bilateral pulmonary parenchymal infiltrates. There is right upper lobe and right lower lobe infiltrate. There is left lower lobe volume loss and infiltrate. Findings are consistent with pneumonia. These infiltrates are new since 01-25. No discrete pulmonary parenchymal mass. Mediastinum, vascular:No mediastinal hematoma. Thoracic aorta is not enlarged. No pathologic mediastinal or hilar adenopathy Heart:No pericardial effusion. No significant cardiomegaly. There is severe coronary artery disease with extensive calcification Pleura:Small to moderate left pleural effusion. VALENTINE values are approximately 15. These are nonspecific. There is no pneumothorax. There is no significant right pleural effusion Axilla, supraclavicular regions, chest wall:No axillary adenopathy. No supraclavicular adenopathy Musculoskeletal:There are fractures of the left eighth, ninth, 10th ribs posteriorly. No associated pneumothorax. There are also fractures of the left fifth and sixth ribs anterolaterally. There are no acute right rib fractures. No acute sternal or vertebral body fracture. Patient does have a permeative abnormality consistent with multiple myeloma. There is a healing fracture of the left acromion process. There is fluid abnormality consistent with large left shoulder joint effusion. May be a tear of the left subscapularis muscle Upper Abdomen:Spleen is unchanged since abdominal and pelvic CT scan dated 01/15/2019. No definite evidence for splenic contusion or laceration. IMPRESSION: 1. Fractures of the left eighth through 10th ribs posteriorly. Fractures of the left fifth and sixth ribs anterolaterally 2. Moderate left pleural effusion. No left pneumothorax 3. Right lung infiltrates consistent with pneumonia 4. Healing left acromion fracture. Large left shoulder joint effusion The exam was performed using radiation dose optimization techniques including, but not limited to, automated exposure control, adjustment of the mA and/or kV according to patient size and use of iterative reconstruction technique. Interpreted and Authenticated by: Onesimo Shay 01/15/19
[2019-01-15] MEDS: 0.9 % SODIUM CHLORIDE 10 ML SYRINGE IV SCH ×2 (14:28→20:40)
[2019-01-15] MEDS ORDERED: DIAZEPAM 5 MG TABLET PO PRN (15:21)
[2019-01-15] MEDS ORDERED: morphine 15 MG TABLET PO PRN (15:21)
[2019-01-15] MEDS ORDERED: IXAZOMIB CITRATE 3 MG PO SCH (15:30)
[2019-01-15] MEDS ORDERED: PROCHLORPERAZINE 10 MG TABLET PO PRN (15:30)
[2019-01-15] MEDS: HYDROcodone/APAP 5/325MG TABLET PO PRN ×2 (15:53→20:30)
[2019-01-15] MEDS: LEVOFLOXACIN 250 MG/50 ML BAG IV SCH (15:54)
[2019-01-15 15:59] LABS: POC INR 1.5 (0.9-1.2); POC Pro Time 18.2 sec (11.9-14.5)
[2019-01-15] MEDS: CARVEDILOL 6.25 MG TABLET PO SCH (17:24)
[2019-01-15] MEDS: SEVELAMER 800 MG TABLET PO SCH (17:24)
[2019-01-15] MEDS ORDERED: WARFARIN 3 MG TABLET PO ONE (18:00)
[2019-01-15] MEDS ORDERED: CAPSAICIN 0.025% CREAM.TOP 60GM TOPICAL PRN (18:11)
[2019-01-15] MEDS: DILTIAZEM 180 MG CAP.XL.24H PO SCH (20:34)
[2019-01-15] MEDS: TAMSULOSIN 0.4 MG CAPSULE PO SCH (20:35)
[2019-01-15] MEDS: traZODone HCL 50 MG TABLET PO SCH (20:35)
[2019-01-15] MEDS: IMIPRAMINE 25 MG TABLET PO SCH (20:35)
[2019-01-15] MEDS: rOPINIRole 1 MG TABLET PO SCH (20:36)
[2019-01-15] MEDS: ACYCLOVIR 400 MG TABLET PO SCH (20:36)
[2019-01-15] MEDS: ATORVASTATIN 20 MG TABLET PO SCH (20:36)
[2019-01-15] MEDS: diphenhydrAMINE 25 MG CAPSULE PO PRN (20:37)
[2019-01-15] MEDS: LACTOBACILLUS 1 CAPSULE PO SCH (20:37)
[2019-01-15] MEDS ORDERED: morphine 30 MG TAB.SR.12H PO SCH (21:00)
[2019-01-16] MEDS: HYDROcodone/APAP 5/325MG TABLET PO PRN ×7 (00:15→23:39)
[2019-01-16 05:42] LABS: INR 1.6 (0.9-1.1); Prothrombin Time 19.4 sec (11.9-14.5)
[2019-01-16] MEDS: 0.9 % SODIUM CHLORIDE 10 ML SYRINGE IV SCH ×3 (06:19→20:37)
[2019-01-16] MEDS: CARVEDILOL 6.25 MG TABLET PO SCH ×2 (07:25→17:06)
[2019-01-16] MEDS: SEVELAMER 800 MG TABLET PO SCH ×3 (07:25→17:05)
[2019-01-16] MEDS: LEVOFLOXACIN 250 MG/50 ML BAG IV SCH (08:47)
[2019-01-16] MEDS: LACTOBACILLUS 1 CAPSULE PO SCH ×2 (08:48→20:36)
[2019-01-16] MEDS: rOPINIRole 1 MG TABLET PO SCH ×3 (08:48→20:36)
[2019-01-16] MEDS: FUROSEMIDE 40 MG TABLET PO SCH (08:48)
[2019-01-16] MEDS: ACYCLOVIR 400 MG TABLET PO SCH ×2 (08:48→20:35)
[2019-01-16] MEDS ORDERED: LENALIDOMIDE 5 MG PO SCH ×2 (09:15→18:00)
[2019-01-16] MEDS: Linagliptin [Tradjenta] 5 MG Tablet PO SCH (11:18)
[2019-01-16] MEDS: LACTATED RINGERS 1,000 ML IV SCH (13:27)
[2019-01-16] MEDS ORDERED: WARFARIN 3 MG TABLET PO ONE (14:00)
[2019-01-16] MEDS: INSULIN LISPRO 1 UNIT/0.01 ML UNIT SQ SCH ×2 (15:45→20:47)
[2019-01-16] MEDS ORDERED: LIDOCAINE PATCH TOPICAL SCH (18:00)
[2019-01-16] MEDS: TAMSULOSIN 0.4 MG CAPSULE PO SCH (20:35)
[2019-01-16] MEDS: IMIPRAMINE 25 MG TABLET PO SCH (20:35)
[2019-01-16] MEDS: DILTIAZEM 180 MG CAP.XL.24H PO SCH (20:35)
[2019-01-16] MEDS: ATORVASTATIN 20 MG TABLET PO SCH (20:35)
[2019-01-16] MEDS: diphenhydrAMINE 25 MG CAPSULE PO PRN (20:36)
[2019-01-16] MEDS: traZODone HCL 50 MG TABLET PO SCH (20:36)
[2019-01-17] MEDS: HYDROcodone/APAP 5/325MG TABLET PO PRN ×3 (03:28→11:05)
[2019-01-17] MEDS: 0.9 % SODIUM CHLORIDE 10 ML SYRINGE IV SCH ×2 (03:29→07:35)
[2019-01-17 05:49] LABS: INR 1.9 (0.9-1.1); Prothrombin Time 21.6 sec (11.9-14.5)
[2019-01-17] MEDS: INSULIN LISPRO 1 UNIT/0.01 ML UNIT SQ SCH (07:35)
[2019-01-17] MEDS: CARVEDILOL 6.25 MG TABLET PO SCH (07:43)
[2019-01-17] MEDS: SEVELAMER 800 MG TABLET PO SCH (07:43)
[2019-01-17] MEDS: LACTOBACILLUS 1 CAPSULE PO SCH (09:00)
[2019-01-17] MEDS: ACYCLOVIR 400 MG TABLET PO SCH (09:00)
[2019-01-17] MEDS: FUROSEMIDE 40 MG TABLET PO SCH (09:01)
[2019-01-17] MEDS: rOPINIRole 1 MG TABLET PO SCH (09:01)
[2019-01-17] MEDS: LEVOFLOXACIN 250 MG/50 ML BAG IV SCH (09:01)
[2019-01-17] MEDS: Linagliptin [Tradjenta] 5 MG Tablet PO SCH (09:02)
--- NOTE | 2019-01-17 09:49 | Internal Med Progress Note ---
Medical - PN: Subj Patient information: Note initiated : 01/16/19 at 9:45 am Service Date, if different from initiated Date: [] Patient: Joshua Adams a 69 y/o M admitted on 01/15/19 for left rib pain. Chief Complaint: [] Interval history: Mr. Adams is a 69 year old M with a history of multiple myeloma/recent hemodi alysis currently now off dialysis since a month and managed by nephrology. Patient fell a week ago at a sidewalk [facility] and sustaining injury to his chest and head. He was evaluated in the ER initial work-up was unremarkable with negative CT scans. He was discharged on the s econd and followed up with his primary care physician 5th. He continued to experience significant left-sided lower chest and upper abdominal pain that was not relieved with pain medications. He denies associated respiratory distress, fever however his pain intensified to 8 out of 10-10 out of 10 worsening with breathing and movement without further trauma. During his second visit early this morning findings are suspicious of splenic rupture. Hospitalist service was consulted after surgical consultation was sought. Patient will undergo MRI and further surgical evaluation if needed. Alert evaluation patient is alert and oriented. He is in significant discomfort requiring pain medications. He denies respiratory events including lightheadedness dizziness chest palpitation and attributes fall to getting off balance. 01/16-patient doing a lot better. Currently on pain medications. No evidence of internal organ injury. Multiple rib fractures total of 5 involving the left side. Continue incentive spirometer/local analgesics/oral opioids and physical therapy. Anticipate discharge in 24 hours. Multifocal pneumonia likely hypostatic. Currently on Levaquin. - Constitutional Vitals: Vital Signs Temp Pulse Resp BP Pulse Ox 98.4 F 64 18 138/72 96 01/17/19 07:23 01/17/19 07:23 01/17/19 07:23 01/17/19 07:23 01/17/19 08:00 Period Temp Pulse Resp BP Sys/Katz Pulse Ox Last 24 Hr 97.9 F-98.6 F 58-68 14-20 129-149/62-74 91-96 Intake and Output 01/16/19 01/17/19 01/17/19 21:59 05:59 13:59 Intake Total 240 240 Balance 240 240 Weight 184 lb 9 oz Intake & Output: Intake & Output 01/16/19 01/17/19 01/17/19 21:59 05:59 13:59 Intake Total 240 240 Balance 240 240 Weight 184 lb 9 oz Intake: Oral 240 240 Other: Urine Appearance Clear Urine Color Bright Yellow Urine Odor Normal Stool Size Moderate Stool Color Brown Stool Consistency Soft # Voids 1 General appearance: no acute distress Exam: Alert oriented Pleuritic chest pain Diminished breath sounds left base Abdomen soft nontender No anxiety Medical - PN: Obj Da - Labs CBC & Chem 7: 01/15/19 00:21 01/15/19 00:21 Labs: Abnormal Lab Results 01/17/19 01/16/19 01/15/19 03:50 03:55 15:42 WBC RBC Hgb Hct RDW MPV Lymph % (Auto) Eos % (Auto) Gran # Lymph # (Auto) Eos # (Auto) POC PT 18.2 H PT 21.6 H 19.4 H POC INR 1.5 H INR 1.9 H 1.6 H Chloride Carbon Dioxide Anion Gap BUN Creatinine Glucose Calcium 01/15/19 01/15/19 00:21 00:21 WBC 11.2 H RBC 2.97 L Hgb 9.0 L Hct 27.2 L RDW 21.9 H MPV 11.4 H Lymph % (Auto) 1.7 L Eos % (Auto) 16.7 H Gran # 8.3 H Lymph # (Auto) 0.2 L Eos # (Auto) 1.9 H POC PT PT POC INR INR Chloride 93 L Carbon Dioxide 21 L Anion Gap 19.0 H BUN 93 H Creatinine 3.8 H Glucose 131 H Calcium 8.4 L Meds: Medications Hydrocodone Bitart/Acetaminophen ([place] 5/325mg) 1 - 2 tab PO Q4HP PRN; Protocol PRN Reason: Per Pain Protocol Last Admin: 01/17/19 07:42 Dose: 2 tab Documented by: Acyclovir (Zovirax) 200 mg PO BID [facility] Last Admin: 01/17/19 09:00 Dose: 200 mg Documented by: Atorvastatin Calcium (Lipitor) 10 mg PO HS [facility] Last Admin: 01/16/19 20:35 Dose: 10 mg Documented by: Capsaicin (Zostrix) 1 dose TOPICAL QIDP PRN PRN Reason: Muscle Pain Last Admin: 01/17/19 09:02 Dose: 1 dose Documented by: Carvedilol (Coreg) 6.25 mg PO BIDCC [facility] Last Admin: 01/17/19 07:43 Dose: 6.25 mg Documented by: Dexamethasone (Decadron) 40 mg PO Randle@0830 [facility] Diagnostic Test (Pha) (Accu-Chek) 1 each FS [facility]; Protocol Last Admin: 01/17/19 07:35 Dose: 1 each Documented by: Diazepam (Valium) 5 mg PO BIDP PRN PRN Reason: Anxiety Diltiazem HCl (Cardizem Cd) [address] [facility] Last Admin: 01/16/19 20:35 Dose: 360 mg Documented by: Diphenhydramine HCl (Benadryl) 25 - 50 mg PO Q6HP PRN PRN Reason: Allergic Symptoms Last Admin: 01/16/19 20:36 Dose: 25 mg Documented by: Furosemide (Lasix) 40 mg PO [facility] Last Admin: 01/17/19 09:01 Dose: 40 mg Documented by: Hydromorphone HCl (Dilaudid) 0 mg IV Q1HP PRN; Protocol PRN Reason: Per Pain Protocol Last Admin: 01/15/19 13:58 Dose: 1 mg Documented by: Lactated Ringer's (Lactated Ringers) 1,000 mls @ 20 mls/hr IV .Q24H [facility] Last Admin: 01/16/19 13:27 Dose: Not Given Documented by: Levofloxacin (Levaquin) 250 mg in 50 mls @ 50 mls/hr IV DAILY [facility] Last Admin: 01/17/19 09:01 Dose: 50 mls/hr Documented by: Imipramine HCl (Tofranil) [address] [facility] Last Admin: 01/16/19 20:35 Dose: 25 mg Documented by: Insulin Human Lispro (Humalog) 0 unit SQ [facility]; Protocol Last Admin: 01/17/19 07:35 Dose: Not Given Documented by: Lactobacillus Rhamnosus (Culturelle) 1 cap PO BID [facility] Last Admin: 01/17/19 09:00 Dose: 1 cap Documented by: Lidocaine (Lidoderm) 1 patch TOPICAL DAILY@1800 [facility] Last Admin: 01/16/19 17:05 Dose: 1 patch Documented by: Ondansetron HCl (Zofran) 4 mg IV Q4HP PRN PRN Reason: Nausea And Vomiting Linagliptin [ Tradjenta] 5 Mg Tablet 1 dose PO DAILY [facility] Last Admin: 01/17/19 09:02 Dose: Not Given Documented by: Lenalidomide [ Revlimid] 5 Mg Capsule 1 dose PO DAILY@1800 [facility] Stop: 01/17/19 18:01 Last Admin: 01/16/19 18:04 Dose: 1 dose Documented by: Prochlorperazine (Compazine) 10 mg PO Q6HP PRN PRN Reason: Nausea Ropinirole HCl (Requip) 1 mg PO BID@0900,1500 [facility] Last Admin: 01/17/19 09:01 Dose: 1 mg Documented by: Ropinirole HCl (Requip) [address] [facility] Last Admin: 01/16/19 20:36 Dose: 2 mg Documented by: Sevelamer Carbonate (Renvela) 800 mg PO TIDCC [facility] Last Admin: 01/17/19 07:43 Dose: 800 mg Documented by: Sodium Chloride (Saline Flush) 10 ml IV Q8 [facility] Last Admin: 01/17/19 07:35 Dose: 10 ml Documented by: Tamsulosin HCl (Flomax) 0.[address] [facility] Last Admin: 01/16/19 20:35 Dose: 0.8 mg Documented by: Trazodone HCl (Desyrel) [address] [facility] Last Admin: 01/16/19 20:36 Dose: 50 mg Documented by: Warfarin Sodium (Coumadin Per Pharmacy) 1 order PO UD [facility] Medical - PN: A/P - Time Spent With Patient Total time spent is greater than 50% in coordination of care (as documented) at patient's floor/unit and/or counseling patient: 25 - 35 minutes (1) Fracture of two ribs of left side Status: Acute Assessment and plan: * Fracture 5 ribs left side-fifth, 6, 8,9 and 10th with minimal hemothorax. Secondary to fall with no evidence of pneumothorax on CT. continue incentive parameter use/pain management/deep breathing exercises. No CT evidence of internal organ injury * Multifocal pneumonia likely aspiration versus hypostatic. Start Levaquin. Do breathing exercises * Pain management currently on opioids/Tylenol/local analgesics * History multiple myeloma chronic disease managed by nephrology. Follow-up outpatient * Coronary artery disease status post V. fib arrest currently on Coreg/statin * DM type II continue CCD/prandial insulin/linagliptin * BPH on Flomax * Anticoagulation currently on hold. * Hypertension continue Coreg/diltiazem * Full code * Prophylaxis, Coumadin on hold. Continue SCDs Plan * Continue pain management * Continue pre-existing medical condition management home meds * Antibiotic coverage for pneumonia * Anticipate discharge in 24 hours if clinically improves Current Visit: Yes Medical - PN: Qual - VTE Deep Vein Thrombosis/Pulmonary Embolism Present on Admission: No
--- NOTE | 2019-01-17 09:51 | Discharge Summary ---
Medical - DS: Prov Patient information: Note initiated : 01/17/19 at 9:50 am Service Date, if different from initiated Date: [] Patient: Joshua Adams 69 y/o M admitted on 01/15/19 for left rib pain. Chief Complaint: [] Date of admission: 01/15/19 03:03 Discharge date: 01/17/19 Primary care physician: Pennie Lee DO Consults: 01/15/19 03:23 Consult to Physician [CONS] Routine Comment: Consulting Provider: Rush Sam Reason For Exam: Physician to Consult 01/15/19 09:04 Consult to Physician [CONS] Routine Comment: Consulting Provider: Sherwin Seay Reason For Exam: Physician to Consult Medical - DS: Meds - Discharge Medications Prescriptions: Levofloxacin [Levaquin] 750 mg PO DAILY #5 tab Transmission Status: Received by [facility] HYDROcodone/APAP 5/325MG [[place] 5-325Mg] 1 - 2 tab PO Q4HP PRN #30 tab PRN Reason: Per Pain Protocol Prescription Printed Active and Home Medications: Home Medications Chlorhexidine Gluconate [Paroex] 15 ml .ROUTE BID 08/14/18 [History Confirmed 01/15/19 Last Taken 01/14/19] Insulin Lispro [Insulin Lispro Kwikpen U-100] See Protocol SQ ACHS #2 insuln.pen 08/17/18 [Rx Confirmed 01/15/19 Last Taken 01/14/19] atorvastatin 10 mg tablet 10 mg PO QHS #90 tab 11/20/18 [Rx Confirmed 01/15/19 Last Taken 01/14/19] diltiazem HCl 360 mg capsule,extended release 24 hr 360 mg PO QDAY #90 cap 11/20/18 [Rx Confirmed 01/15/19 Last Taken 01/14/19] trazodone 50 mg tablet 50 mg PO HS #90 tab 11/20/18 [Rx Confirmed 01/15/19 Last Taken 01/14/19] linagliptin 5 mg tablet 5 mg PO QDAY #90 tab 12/12/18 [Rx Confirmed 01/15/19 Last Taken 01/14/19] ropinirole 1 mg tablet 1 mg PO .COMPLEX #120 tab 12/12/18 [Rx Confirmed 01/15/19 Last Taken 01/14/19] Dexamethasone [Decadron] 40 mg PO WEEKLY 12/15/18 [History Confirmed 01/15/19 Last Taken 01/14/19] Imipramine [Tofranil] 25 mg PO HS 12/15/18 [History Confirmed 01/15/19 Last Taken 01/14/19] Ixazomib Citrate [Ninlaro] 3 mg PO .COM 12/15/18 [History Confirmed 01/15/19 Last Taken 01/14/19] Lenalidomide [Revlimid] 2.5 mg PO DAILY 12/15/18 [History Confirmed 01/15/19 Last Taken 01/14/19] Prochlorperazine (Pp) [Compazine (Pp)] 10 mg PO Q6H PRN 12/15/18 [History Confirmed 01/15/19 Last Taken 01/14/19] Tamsulosin [Flomax] 0.8 mg PO HS 12/15/18 [History Confirmed 01/15/19 Last Taken 01/14/19] Lactobacillus [Culturelle] 1 cap PO BID #60 cap 12/17/18 [Rx Confirmed 01/15/19 Last Taken 01/14/19] diazepam 5 mg tablet 5 mg PO BID PRN tab 12/25/18 [History Confirmed 01/15/19 Last Taken 01/14/19] morphine 15 mg immediate release tablet 15 mg PO Q2HP PRN 12/25/18 [History Confirmed 01/15/19 Last Taken 01/14/19] morphine 30 mg tablet,extended release 60 mg PO BID 12/25/18 [History Confirmed 01/15/19 Last Taken 01/14/19] sevelamer carbonate 800 mg tablet 800 mg PO TID #90 tab 12/29/18 [Rx Confirmed 01/15/19 Last Taken 01/14/19] acyclovir 200 mg capsule 200 mg PO BID #60 cap 01/08/19 [Rx Confirmed 01/15/19 Last Taken 01/14/19] warfarin 6 mg tablet 6 mg PO DAILY #30 tab 01/08/19 [Rx Confirmed 01/15/19 Last Taken 01/14/19] carvedilol 6.25 mg tablet 6.25 mg PO BID #60 tab 01/12/19 [Rx Confirmed 01/15/19 Last Taken 01/14/19] furosemide 40 mg tablet 40 mg PO QAM #30 tab 01/12/19 [Rx Confirmed 01/15/19 Last Taken 01/14/19] HYDROcodone/APAP 5/325MG [[place] 5-325Mg] 1 - 2 tab PO Q4HP PRN #30 tab 01/17/19 [Rx Last Taken Unknown] Levofloxacin [Levaquin] 750 mg PO DAILY #5 tab 01/17/19 [Rx Last Taken Unknown] Medical - DS: Hosp Hospital Course: Discharge diagnosis * Traumatic fractures 5 ribs left side-5th, 6, 8,9th and 10th with minimal hemothorax. Secondary to fall with no evidence of pneumothorax on CT. continue incentive parameter use/pain management/deep breathing exercises. No CT evidence of internal organ injury * Multifocal pneumonia likely aspiration versus hypostatic. Start Levaquin. Do breathing exercises * Pain management currently on opioids/Tylenol/local analgesics * History multiple myeloma chronic disease managed by nephrology. Follow-up nephrology as outpatient * Coronary artery disease status post V. fib arrest currently on Coreg/statin. Follow-up with cardiology on discharge * DM type II continue CCD/prandial insulin/linagliptin * BPH on Flomax * Anticoagulation on Coumadin * Hypertension continue Coreg/diltiazem Brief hospital course Mr. Adams is a 69 year old M with a history of multiple myeloma/recent hemodialysis currently now off dialysis since a month and managed by nephrology. Patient fell a week ago at a sidewalk outside of [facility] tripping and sustaining injury to his chest and head. He was evaluated in the ER initial work-up was unremarkable with negative CT scans. He was discharged on the second and followed up with his primary care physician 5th. He continued to experience significant left-sided lower chest and upper abdominal pain that was not relieved with pain medications. He denies associated respiratory distress, fever however his pain intensified to 8 out of 10-10 out of 10 worsening with breathing and movement without further trauma. During his second visit early this morning findings are suspicious of splenic rupture. Hospitalist service was consulted after surgical consultation was sought. Patient will undergo MRI and further surgical evaluation if needed. Alert evaluation patient is alert and oriented. He is in significant discomfort requiring pain medications. He denies respiratory events including lightheadedness dizziness chest palpitation and attributes fall to getting off balance. 01/16-patient doing a lot better. Currently on pain medications. No evidence of internal organ injury. Multiple rib fractures total of 5 involving the left side. Continue incentive spirometer/local analgesics/oral opioids and physical therapy. Anticipate discharge in 24 hours. Multifocal pneumonia likely hypostatic. Currently on Levaquin. 01/17-patient doing a lot better. Able to ambulate. No overnight fever chills. No concerns per staff. Continuing Coumadin dosing based on INR. 1.9 today. Pleuritic pain much improved. Stable vitals and hemodynamics. Discharging home on additional 5 days oral Levaquin/oral opioids Discharge diagnosis: . - Time Spent with Patient Total time spent providing and/or coordinating discharge services: Greater than 30 minutes Medical - DS: Exam - Constitutional Vitals: Vital Signs Temp Pulse Resp BP Pulse Ox 01/17/19 08:00 96 01/17/19 07:23 98.4 F 64 18 138/72 96 01/17/19 03:40 97.9 F 58 L 14 129/69 91 01/16/19 23:35 98.2 F 64 20 143/68 94 01/16/19 19:05 68 18 91 01/16/19 18:53 98.4 F 67 20 149/74 96 01/16/19 16:00 98.6 F 68 18 131/62 01/16/19 12:00 98.3 F 63 18 91 Intake and Output 01/16/19 01/17/19 01/17/19 21:59 05:59 13:59 Intake Total 240 240 Balance 240 240 Intake: Oral 240 240 Other: Urine Appearance Clear Urine Color Bright Yellow Urine Odor Normal Stool Size Moderate Stool Color Brown Stool Consistency Soft # Voids 1 Weight 184 lb 9 oz Medical - DS: Data Labs on day of discharge: Labs from last 24 hours 01/17/19 03:50 PT 21.6 H INR 1.9 H Medical - DS: A/P - Patient/Caregiver Discharge Instructions Activity: increase activity as tolerated Diet: Regular Diet Additional Instructions: Follow-up cardiology and nephrology on discharge Continue pain management as advised Aggressive intensive spirometer use every hour for 2 minutes Continue antibiotics for additional 5 days Prescriptions: Levofloxacin [Levaquin] 750 mg PO DAILY #5 tab Transmission Status: Received by [facility] HYDROcodone/APAP 5/325MG [[place] 5-325Mg] 1 - 2 tab PO Q4HP PRN #30 tab PRN Reason: Per Pain Protocol Prescription Printed - Follow up Plan Follow up with: Pennie Lee DO [Primary Care Provider] - Disposition: Home, Self-Care Prognosis: Undetermined Rehab Potential: Fair I certify that the patient requires SNF services: No Overall status at discharge: patient is progressing back to baseline Medical - DS: Qual - VTE Deep Vein Thrombosis/Pulmonary Embolism Present on Admission: No
[2019-01-21] MEDS ORDERED: DEXAMETHASONE 4 MG TABLET PO SCH (08:30)
== END 2019-01-17 11:20 | disposition home or self-care (01) | DRG 183 ==
LOC: MEDSUR 22:51 → ED 22:51 → OBSVTOIN 01-15 03:03 → MEDSUR 01-15 03:03 → INTOOBSV 01-15 03:03 → MEDSUR 01-16 18:06
PROVIDERS: ADMIT Internal Medicine; ATTEND Internal Medicine

== ENCOUNTER 2019-02-15 21:21 | Inpatient (IN) ==
[2019-02-15] MEDS ORDERED: 0.9 % SODIUM CHLORIDE 250 ML IV ONE (21:31)
--- NOTE | 2019-02-15 22:05 | Emergency Department Note ---
Recheck HPI - General Chief Complaint: Recheck/Abnormal Lab/Rx Stated Complaint: Has toxins in blood Time Seen by Provider: 02/15/19 21:31 Mode of arrival: wheelchair - History of Present Illness HPI Narrative: 69-year-old male presenting to the emergency department chief complaint of elevated BUN. Patient is on dialysis concern by nephrology for over dialyzed. Patient with some generalized weakness sensation not having nausea vomiting diarrhea signs or symptoms of a systemic illness. Patient without exacerbating or ameliorating factors for this issue. Time course is today. - Related Data Home Medications Medication Instructions Recorded Confirmed Chlorhexidine Gluconate [Paroex] 15 ml .ROUTE BID 08/14/18 01/22/19 Dexamethasone [Decadron] 40 mg PO WEEKLY 12/15/18 01/22/19 Imipramine [Tofranil] 25 mg PO HS 12/15/18 01/22/19 Ixazomib Citrate [Ninlaro] 3 mg PO .COM 12/15/18 01/22/19 Lenalidomide [Revlimid] 2.5 mg PO DAILY 12/15/18 01/22/19 Prochlorperazine (Pp) [Compazine 10 mg PO Q6H PRN 12/15/18 01/22/19 (Pp)] Tamsulosin [Flomax] 0.8 mg PO HS 12/15/18 01/22/19 diazepam 5 mg tablet 5 mg PO BID PRN tab 12/25/18 01/22/19 morphine 15 mg immediate release 15 mg PO Q2HP PRN 12/25/18 01/22/19 tablet morphine 30 mg tablet,extended 60 mg PO BID 12/25/18 01/22/19 release Previous Rx's Medication Instructions Recorded Insulin Lispro [Insulin Lispro See Protocol SQ ACHS #2 insuln.pen 08/17/18 Kwikpen U-100] atorvastatin 10 mg tablet 10 mg PO QHS #90 tab 11/20/18 trazodone 50 mg tablet 50 mg PO HS #90 tab 11/20/18 linagliptin 5 mg tablet 5 mg PO QDAY #90 tab 12/12/18 ropinirole 1 mg tablet 1 mg PO .COMPLEX #120 tab 12/12/18 Lactobacillus [Culturelle] 1 cap PO BID #60 cap 12/17/18 acyclovir 200 mg capsule 200 mg PO BID #60 cap 01/08/19 warfarin 6 mg tablet 6 mg PO DAILY #30 tab 01/08/19 HYDROcodone/APAP 5/325MG [[place] 1 - 2 tab PO Q4HP PRN #30 tab 01/17/19 5-325Mg] Levofloxacin [Levaquin] 750 mg PO DAILY #5 tab 01/17/19 carvedilol 12.5 mg tablet 12.5 mg PO BID #60 tab 01/19/19 sevelamer HCl 800 mg tablet 800 mg PO BID #60 tab 01/19/19 diltiazem HCl 180 mg capsule,24 180 mg PO QAM #30 cap 02/15/19 hr,extended release torsemide 20 mg tablet 40 mg PO QDAY #30 tab 02/15/19 Allergies Allergy/AdvReac Type Severity Reaction Status Date / Time No Known Drug Allergies Allergy Verified 01/22/19 15:45 Review of Systems All systems ED: reviewed and negative except as stated. Past Medical History - Past Medical History PMFSH Narrative: All Active Problems (Last Reviewed 01/22/19 @ 19:11 by Pennie Lee, ) Fall (Acute) Multiple contusions (Acute) Multiple abrasions (Acute) Minor head injury (Acute) Contusion of rib on left side (Acute) Multiple rib fractures (Acute) Fracture of two ribs of left side (Acute) Community acquired pneumonia (Acute) Chronic kidney disease (CKD), stage IV (severe) (Acute) Renal azotemia (Acute) Hypocalcemia (Acute) Acidosis, metabolic (Acute) Hypomagnesemia (Acute) A-fib (Chronic) Multiple myeloma (Acute) Focal neurological deficit (Acute) Pancytopenia (Chronic) Constipation (Chronic) Edema (Chronic) Anemia (Chronic) Shoulder pain (Chronic) Back pain (Chronic) Left hand weakness (Chronic) JOSS (obstructive sleep apnea) (Chronic) Sjogren's disease (Chronic) BPH (benign prostatic hyperplasia) (Chronic) Acute kidney injury (Chronic) Hypercalcemia (Chronic) Altered mental status (Chronic) Acute renal failure syndrome (Chronic) Hyperkalemia (Chronic) Multiple myeloma (Chronic) Urinary hesitancy (Chronic) Nocturia (Chronic) Type 2 diabetes mellitus with unspecified diabetic retinopathy without macular edema (Chronic) Polyarthritis (Chronic) 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) Surgical history ED: Reports: orthopedic, other, other (spinal stimulator implanted.) - Social History smoking status: Never smoker Alcohol use: Reports: Rarely Drug use: Reports: none Physical Exam General: Alert, interactive, appropriate Head: Atraumatic, normocephalic Eyes: Extraocular movements intact Neck: Trachea midline, full range of motion Chest: Symmetrical chest wall rise, breathing normally Cardiovascular: Patient with excellent perfusion to the extremities Extremities: Full range of motion joints, warm well perfused Neuro: Alert, oriented x3, cranial nerves II through XII grossly intact, normal gait Psychiatric: Normal affect normal mood Course Vital Signs Temperature 98.0 F 02/15/19 21:22 Pulse Rate 57 L 02/15/19 21:22 Respiratory Rate 16 02/15/19 21:22 Blood Pressure 122/58 02/15/19 21:22 Pulse Oximetry (%) 93 02/15/19 21:22 Temperature 98.0 F 02/15/19 21:22 Pulse Rate 57 L 02/15/19 21:22 Respiratory Rate 16 02/15/19 21:22 Blood Pressure 122/58 02/15/19 21:22 Pulse Oximetry (%) 93 02/15/19 21:22 Recheck/Abnormal Lab/Rx - MDM Narrative Medical decision making narrative: I discussed the case with nephrology his [facility] attendant call me to give appropriate analysis. Nephrology on-call is also been contacted as well as the hospitalist. Will perform CBC as well as access IV and give 250 mL's normal saline. Plan is to admit the patient for ongoing care. - Lab Data Result diagrams: 02/15/19 21:35 Disposition Pt seen by REMOTE S[employer]ING RESEARCH SCIENTIST/PA only: No Clinical Impression: Acute renal failure Qualifiers: Acute renal failure type: unspecified Qualified Code(s): N17.9 - Acute kidney failure, unspecified Disposition: Xfer As Inpt ([facility]) Condition: Good Referrals: Pennie Lee DO [Primary Care Provider] -
--- NOTE | 2019-02-15 22:20 | Internal Med History&Physical ---
Medical - H&P: HPI Patient information: Note initiated : 02/15/19 at 10:18 pm Service Date, if different from initiated Date: [] Patient: Joshua Adams 69 y/o M admitted on for Has toxins in blood. Chief Complaint: [] History of present illness: This is a 69-year-old gentleman with a history of multiple myeloma on active chemotherapy, stage V CKD was on dialysis and his GFR improved and holding dialysis for the last few months Patient has been managed by her pillar worker and patient was on torsemide and metolazone metolazone was stopped recently and his creatinine started getting worse for the last few days and his BUN is 101 and GFR is 11 with his baseline GFR around 15-18 recently and BUN is around 60. Patient is feeling weak and tired but otherwise no signs of volume overload. Patient appears to be dehydrated actually and no fever no chills review of system otherwise was unremarkable other than his chronic symptoms. Discussed with the pillar worker who saw his labs and send him to the ER today and recommended start him on NS because of the low sodium and probable overdiuresis. ER physician discussed with the pillar worker and they will see the patient in the morning. - Constitutional Constitutional: Present: lethargy, malaise - EENT Eyes: Absent: blind spots, blurry vision, change in vision, decreased night vision - Cardiovascular Cardiovascular: Present: dyspnea on exertion. Absent: chest pain, chest pain at rest, chest pain with activity, diaphoresis, edema, palpatations, paroxysmal nocturnal dyspnea, pedal edema - Respiratory Respiratory: Present: cough. Absent: dyspnea, hemoptysis, dyspnea on exertion, wheezing, chest congestion, excessive phlegm production - Gastrointestinal Gastrointestinal: Present: change in bowel habits. Absent: abdominal pain, belching, bloating - Genitourinary Genitourinary: Absent: difficulty urinating, dysuria, genital lesions, genital pain - Neurological Neurological: Present: abnormal gait. Absent: abnormal movements, abnormal speech, behavioral changes, burning sensations, confusion, convulsions - Psychiatric Psychiatric: Present: anxiety, depression. Absent: hallucinations, memory loss, mood swings, panic attacks, suicidal ideation, visual hallucinations - Endocrine Endocrine: Present: fatigue. Absent: cold intolerance, deeping of the voice, excessive sweating, flushing Medical - H&P: PMH Medical history: Past Surgical History (Last Reviewed 01/22/19 @ 19:11 by Pennie Lee DO) History of repair of rotator cuff (Chronic) Surgical history: Medical History (Last Reviewed 01/22/19 @ 19:11 by Pennie Lee DO) Pancytopenia (Chronic) Constipation (Chronic) Edema (Chronic) Anemia (Chronic) Shoulder pain (Chronic) Back pain (Chronic) Left hand weakness (Chronic) JOSS (obstructive sleep apnea) (Chronic) Sjogren's disease (Chronic) BPH (benign prostatic hyperplasia) (Chronic) Acute kidney injury (Chronic) Hypercalcemia (Chronic) Altered mental status (Chronic) Acute renal failure syndrome (Chronic) Hyperkalemia (Chronic) Multiple myeloma (Chronic) Urinary hesitancy (Chronic) Nocturia (Chronic) Type 2 diabetes mellitus with unspecified diabetic retinopathy without macular edema (Chronic) Polyarthritis (Chronic) 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) RLS (restless legs syndrome) (Chronic) Impaired fasting glucose (Chronic) Dyslipidemia (Chronic) BPH w/o urinary obs/LUTS (Chronic) Insomnia (Chronic) Hypertension (Chronic) Glaucoma (Chronic) Fatty liver (Chronic) Pneumonia (Acute) Social history: Social History (Last Updated 01/22/19 @ 19:22 by Pennie Lee DO) No Social History Section defined Drug use: none Alcohol use: none Medical - H&P: Meds Home Medications Medication Instructions Recorded Confirmed Type Chlorhexidine Gluconate [Paroex] 15 ml .ROUTE BID 08/14/18 02/15/19 History Insulin Lispro [Insulin Lispro See Protocol SQ ACHS #2 insuln.pen 08/17/18 01/22/19 Rx Kwikpen U-100] atorvastatin 10 mg tablet 10 mg PO QHS #90 tab 11/20/18 02/15/19 Rx trazodone 50 mg tablet 50 mg PO HS #90 tab 11/20/18 01/22/19 Rx linagliptin 5 mg tablet 5 mg PO QDAY #90 tab 12/12/18 01/22/19 Rx ropinirole 1 mg tablet 1 mg PO .COMPLEX #120 tab 12/12/18 01/22/19 Rx Dexamethasone [Decadron] 40 mg PO WEEKLY 12/15/18 02/15/19 History Imipramine [Tofranil] 25 mg PO HS 12/15/18 01/22/19 History Ixazomib Citrate [Ninlaro] 3 mg PO .COM 12/15/18 01/22/19 History Lenalidomide [Revlimid] 2.5 mg PO DAILY 12/15/18 01/22/19 History Prochlorperazine (Pp) [Compazine 10 mg PO Q6H PRN 12/15/18 01/22/19 History (Pp)] Tamsulosin [Flomax] 0.8 mg PO HS 12/15/18 01/22/19 History Lactobacillus [Culturelle] 1 cap PO BID #60 cap 12/17/18 01/22/19 Rx diazepam 5 mg tablet 5 mg PO BID PRN tab 12/25/18 01/22/19 History morphine 15 mg immediate release 15 mg PO Q2HP PRN 12/25/18 01/22/19 History tablet morphine 30 mg tablet,extended 60 mg PO BID 12/25/18 01/22/19 History release acyclovir 200 mg capsule 200 mg PO BID #60 cap 01/08/19 02/15/19 Rx warfarin 6 mg tablet 6 mg PO DAILY #30 tab 01/08/19 01/22/19 Rx carvedilol 12.5 mg tablet 12.5 mg PO BID #60 tab 01/19/19 02/15/19 Rx sevelamer HCl 800 mg tablet 800 mg PO BID #60 tab 01/19/19 01/22/19 Rx diltiazem HCl 180 mg capsule,24 180 mg PO QAM #30 cap 02/15/19 Rx hr,extended release torsemide 20 mg tablet 40 mg PO QDAY #30 tab 02/15/19 Rx Allergies Allergy/AdvReac Type Severity Reaction Status Date / Time No Known Drug Allergies Allergy Verified 01/22/19 15:45 Medical - H&P: Exam - Constitutional Vitals: Temp Pulse Resp BP Pulse Ox 98.0 F 57 L 16 122/58 93 02/15/19 21:22 02/15/19 21:22 02/15/19 21:22 02/15/19 21:22 02/15/19 21:22 General appearance: cooperative, no acute distress - Head Head exam: Absent: atraumatic, normal inspection, normocephalic - Expanded Head Exam Head exam: Absent: abrasion, hematoma, laceration - Eye Eye exam: Present: EOMI, PERRL. Absent: conjunctival injection, nystagmus, periorbital swelling Pupils: Present: PERRL - ENT ENT exam: Present: mucous membranes dry, normal exam, normal external ear exam, normal oropharynx - Expanded ENT Exam Ear exam: Absent: auricular hematoma, auricular trauma, external canal tenderness Mouth exam: Present: dry mucosa, normal external inspection - Neck Neck exam: Present: normal inspection. Absent: lymphadenopathy, meningismus - Expanded Neck Exam Neck exam: Absent: anterior neck swelling, tenderness, thyroid mass - Respiratory Respiratory exam: Present: normal respiratory exam. Absent: accessory muscle use, chest wall tenderness, decreased breath sounds, respiratory distress, rhonchi, wheezes - Cardiovascular Cardiovascular exam: Present: irregular rhythm. Absent: bradycardia, diastolic murmur, systolic murmur - GI/Abdominal GI/Abdominal exam: Present: normal bowel sounds, soft. Absent: distended, guarding, rebound - Neurological Exam Neurological exam: Present: alert, oriented X3, reflexes normal. Absent: motor sensory deficit - Psychiatric Psychiatric exam: Present: normal affect, normal mood. Absent: agitated, anxious, depressed Medical - H&P: Reslt - Labs CBC & Chem 7: 02/15/19 21:35 Medical - H&P: A/P - Narrative A/P Narrative: Acute renal failure on CKD stage IV/V Patient had CKD stage V and was on dialysis until recently and held the dialysis as his GFR improved Patient has active dialysis access and plan was to do an ultrafiltration next week Patient was on torsemide and metolazone and probable diuresis Patient reported 20 pound weight loss since [place] Patient is also on active chemotherapy but denied any active side effects like GI symptoms He had a recent fall and had a rib fracture. He is on significant amount of narcotics due to arthritis and back pain Plan Discussed with the pillar worker and recommended keeping on NS 75 mils per hour overnight and recheck the kidney function tomorrow and pillar worker will see the patient in the morning If he is not improving they will consider dialysis Monitor electrolytes Recheck sodium in the morning History of V. fib arrest According to the patient patient had a V. fib arrest , airlifted and evaluated at [place] and was evaluated by cardiology and work-up was unremarkable. I do not have the documentation Patient also seen by cardiology outpatient for atrial fibrillation We will monitor telemetry Moderate hyponatremia Probably due to diuresis IV fluid resuscitation and recheck sodium Multiple myeloma on active chemotherapy We will continue his home medications Outpatient oncology follow[facility]up in [facility] History of BPH We will monitor urine output Anxiety and insomnia Patient is on diazepam as needed I discussed with the patient because of the recurrent fall with a long-acting narcotics and diazepam is not a good combination He has a prolonged QT interval and will hold any antipsychotics Recent rib fracture and pneumonia Symptoms improved oxygenating well DVT prophylaxis-on Coumadin CODE STATUS-full code verified with the patient and Expected length of stay-1 midnight CPT code 57384
[2019-02-15] MEDS ORDERED: ONDANSETRON 4 MG/2 ML VIAL IV PRN ×2 (22:23→23:21)
[2019-02-15] MEDS ORDERED: ALBUTEROL SULFATE 2.5 MG/3 ML NEBULIZER NEB PRN ×2 (22:23→23:21)
[2019-02-15] MEDS ORDERED: DEXTROSE 31 GM ORAL.SUSP PO PRN ×2 (22:23→23:21)
[2019-02-15] MEDS ORDERED: DEXTROSE 50% 50 ML VIAL IV PRN ×2 (22:23→23:21)
[2019-02-15] MEDS ORDERED: traZODone HCL 50 MG TABLET PO PRN ×2 (22:23→23:21)
[2019-02-15] MEDS ORDERED: ZOLPIDEM 5 MG TABLET PO PRN ×2 (22:23→23:21)
[2019-02-15] MEDS ORDERED: PROCHLORPERAZINE 10 MG PO PRN (22:27)
[2019-02-15] MEDS ORDERED: morphine 15 MG TABLET PO PRN (22:27)
[2019-02-15] MEDS ORDERED: DEXAMETHASONE 4 MG TABLET PO SCH (22:30)
[2019-02-15] MEDS ORDERED: 0.9 % SODIUM CHLORIDE 1,000 ML IV SCH (22:30)
[2019-02-15] MEDS ORDERED: rOPINIRole 1 MG TABLET PO SCH (22:30)
[2019-02-15] MEDS ORDERED: IXAZOMIB CITRATE 3 MG PO SCH ×2 (22:30→23:21)
[2019-02-15 23:01] LABS: Basophils # (Auto) 0.01 K/mcL (0.00-0.30); Basophils % (Auto) 0.1 % (0.0-2.0); Eosinophils # (Auto) 0.08 K/mcL (0.00-0.70); Granulocytes % (Auto) 94.2 % (38.0-78.0); Hematocrit 20.7 % (40.1-51.0); Hemoglobin 6.8 g/dL (13.7-17.5); Lymphocytes # (Auto) 0.21 K/mcL (1.50-4.80); Lymphocytes % (Auto) 2.7 % (15.5-49.0); Mean Cell Volume 90.8 fL (80.0-100.0); Mean Corpuscular HGB Conc 32.9 g/dL (31.0-36.0); Monocytes # (Auto) 0.16 K/mcL (0.10-0.90); Platelet Count 121 K/mcL (140-440); RBC 2.28 M/mcL (4.63-6.08); Red Cell Distribution Width 18.8 % (11.5-14.5); WBC 7.9 K/mcL (4.50-11.00)
[2019-02-15] MEDS ORDERED: 0.9 % SODIUM CHLORIDE 250 ML IV SCH ×3 (23:15→23:21)
[2019-02-15] MEDS ORDERED: PROCHLORPERAZINE 10 MG TABLET PO PRN (23:21)
[2019-02-15] MEDS: 0.9 % SODIUM CHLORIDE 1,000 ML IV SCH (23:46)
[2019-02-16] MEDS ORDERED: morphine 15 MG TABLET ONE (00:59)
[2019-02-16] MEDS: morphine 15 MG TABLET PO PRN ×4 (01:00→17:00)
[2019-02-16] MEDS ORDERED: traZODone HCL 50 MG TABLET ONE (01:27)
[2019-02-16] MEDS: 0.9 % SODIUM CHLORIDE 10 ML SYRINGE IV SCH ×3 (04:43→21:22)
[2019-02-16] MEDS ORDERED: 0.9 % SODIUM CHLORIDE 10 ML SYRINGE IV SCH (06:00)
[2019-02-16 06:19] LABS: Appearance,Urine CLEAR; Bilirubin,Urine NEG (NEG); Color,Urine STRAW; Glucose,Urine (UA) 50 mg/dL (NEG); Ketones,Urine NEG (NEG); Leukocyte Esterase,Urine NEG /uL (NEG); Nitrate,Urine NEG (NEG); Protein,Urine NEG (NEG); Specific Gravity,Urine 1.011 (1.000-1.035); Urine Blood NEG mg/dL (<0.03); Urobilinogen,Urine NEG (NEG)
[2019-02-16 07:15] LABS: ALT/SGPT 23 U/l (0-40); AST/SGOT 15 U/l (0-37); Albumin 3.4 gm/dL (3.2-5.2); Albumin/Globulin Ratio 1.3 (1.0-2.3); Alkaline Phosphatase 140 U/L (39-117); Bilirubin,Total 0.8 mg/dL (0.0-1.0); Calcium 7.3 mg/dl (8.6-10.4); Carbon Dioxide 27 mmol/L (22-30); Globulin 2.6 gm/dL (2.2-3.7); Glomerular Filtration Rate 13; Glucose 262 mg/dL (70-105)
[2019-02-16 07:16] LABS: Hematocrit 25.4 % (40.1-51.0); Hemoglobin 8.5 g/dL (13.7-17.5); Mean Cell Volume 88.5 fL (80.0-100.0); Mean Corpuscular HGB Conc 33.5 g/dL (31.0-36.0); Platelet Count 102 K/mcL (140-440); RBC 2.87 M/mcL (4.63-6.08); WBC 8.3 K/mcL (4.50-11.00)
[2019-02-16] MEDS ORDERED: INSULIN LISPRO 1 UNIT/0.01 ML UNIT SQ SCH (07:30)
[2019-02-16 07:38] LABS: Blood Urea Nitrogen 103 mg/dl (8-23); Chloride 79 mmol/L (96-108)
[2019-02-16] MEDS: SEVELAMER 800 MG TABLET PO SCH ×2 (07:49→17:43)
[2019-02-16] MEDS: CARVEDILOL 12.5 MG TABLET PO SCH ×2 (07:50→17:43)
[2019-02-16] MEDS: INSULIN LISPRO 1 UNIT/0.01 ML UNIT SQ SCH ×4 (07:51→21:18)
[2019-02-16 08:22] LABS: INR 2.7 (0.9-1.1); Prothrombin Time 28.6 sec (11.9-14.5)
[2019-02-16] MEDS ORDERED: ACYCLOVIR 200 MG PO SCH (09:00)
[2019-02-16] MEDS ORDERED: FAMOTIDINE/PF 20 MG/2 ML VIAL IV SCH (09:00)
[2019-02-16] MEDS ORDERED: morphine 30 MG TAB.SR.12H PO SCH (09:00)
[2019-02-16] MEDS ORDERED: LACTOBACILLUS 1 CAPSULE PO SCH (09:00)
[2019-02-16] MEDS ORDERED: CARVEDILOL 12.5 MG TABLET PO SCH (09:00)
[2019-02-16] MEDS ORDERED: DOCUSATE SODIUM 100 MG CAPSULE PO SCH (09:00)
[2019-02-16] MEDS ORDERED: DILTIAZEM HCL 180 MG PO SCH (09:00)
[2019-02-16] MEDS ORDERED: LENALIDOMIDE 2.5 MG PO SCH ×2 (09:00)
[2019-02-16] MEDS ORDERED: WARFARIN 6 MG TABLET PO SCH (09:00)
[2019-02-16] MEDS ORDERED: SEVELAMER HCL 800 MG PO SCH (09:00)
[2019-02-16 09:10] LABS: Anisocytosis 1+ (NONE SEEN); Band Neutrophils % 15 % (0-10); Eosinophils % (Manual) 1 % (0-7); Lymphocytes % 3 % (15-49); Metamyelocytes % 4 % (0-0); Monocytes % (Manual) 2 % (1-12); Myelocytes % 4 % (0-0); Ovalocytes FEW (NONE SEEN); Platelet Estimate DECREASED (NORMAL); Poikilocytosis 1+ (NONE SEEN); RBC Fragments OCC (NONE SEEN); RBC Morphology ABNORM (NORMAL); Segmented Neutrophils % 71 % (38-78); Tear Drop Cells FEW (NONE SEEN)
[2019-02-16] MEDS: DILTIAZEM 180 MG CAP.XL.24H PO SCH (09:52)
[2019-02-16] MEDS: FAMOTIDINE/PF 20 MG/2 ML VIAL IV SCH ×2 (09:52→21:04)
[2019-02-16] MEDS: LACTOBACILLUS 1 CAPSULE PO SCH ×2 (09:52→21:07)
[2019-02-16] MEDS: ACYCLOVIR 400 MG TABLET PO SCH ×2 (09:53→21:08)
[2019-02-16] MEDS: morphine 30 MG TAB.SR.12H PO SCH ×2 (09:53→21:07)
[2019-02-16] MEDS: DOCUSATE SODIUM 100 MG CAPSULE PO SCH ×2 (09:53→21:05)
[2019-02-16] MEDS: rOPINIRole 1 MG TABLET PO SCH ×2 (09:53→15:27)
[2019-02-16] MEDS ORDERED: DARBEPOETIN ALFA 200 MCG/ML VIAL SQ ONE (11:00)
[2019-02-16] MEDS: 0.9 % SODIUM CHLORIDE 1,000 ML IV SCH ×3 (12:46→19:06)
[2019-02-16] MEDS ORDERED: MAGNESIUM SULFATE 2 GM/50 ML BAG IV ONE (13:04)
--- NOTE | 2019-02-16 13:09 | Internal Med Progress Note ---
Medical - PN: Subj Patient information: Note initiated : 02/16/19 at 1:08 pm Service Date, if different from initiated Date: [] Patient: Joshua Adams 69 y/o M admitted on 02/15/19 for Has toxins in blood. Chief Complaint: [] Interval history: 02/15 69-year-old gentleman with a history of multiple myeloma on active chemotherapy, stage V CKD was on dialysis and his GFR improved and holding dialysis for the last few months Patient has been managed by her ophthalmologist retina specialist and patient was on torsemide and me tolazone metolazone was stopped recently and his creatinine started getting worse for the last few days and his BUN is 101 and GFR is 11 with his baseline GFR around 15-18 recently and BUN is around 60. Patient is feeling weak and tired but otherwise no signs of volume overload. Patient appears to be dehydrated actually and no fever no chills review of system otherwise was unremarkable other than his chronic symptoms. Discussed with the ophthalmologist retina specialist who saw his labs and send him to the ER today and recommended start him on NS because of the low sodium and probable overdiuresis. ER physician discussed with the ophthalmologist retina specialist and they will see the patient in the morning. 02/16 Patient is feeling better His BUN remains high Creatinine slightly improved Continue IV hydration Hypomagnesemia and hypokalemia ordered replacement Nephrology evaluating the patient Pertinent ROS: Review of systems Respiratory-no shortness of breath no cough Cardiac-no chest pain no palpitations no syncope Abdomen-distended no diarrhea no constipation Neuro-no focal deficit no muscle spasms Psychiatry-history anxiety no depression no hallucination - Constitutional Vitals: Vital Signs Temp Pulse Resp BP Pulse Ox 97.7 F 72 16 132/63 93 02/16/19 07:41 02/16/19 07:41 02/16/19 07:41 02/16/19 07:41 02/16/19 07:41 Period Temp Pulse Resp BP Sys/Katz Pulse Ox Last 24 Hr 97.7 F-98.4 F 57-72 16-20 119-136/57-68 89-95 Intake and Output 02/15/19 02/16/19 02/16/19 21:59 05:59 13:59 Intake Total 1790 1400 Output Total 700 850 Balance 1090 550 Weight 158 lb 162 lb 162 lb Patient Weight 02/17/19 05:59 Weight 162 lb Intake & Output: Intake & Output 02/15/19 02/16/19 02/16/19 21:59 05:59 13:59 Intake Total 1790 1400 Output Total 700 850 Balance 1090 550 Weight 158 lb 162 lb 162 lb Intake: IV 300 0 Sodium Chloride 0.9% 250 ml @ 300 0 100 mls/hr IV BOLUS ONE Rx#: [id number] Oral 840 1400 Blood Product 650 Output: Void Amount 700 850 Other: Meal 2x cheese sticks & diet cranberry juice Breakfast Percent of Meal Consumed 100% 100% Feeding Ability Independent Urine Appearance Clear Clear Urine Color Bright Yellow Pale - Head Head exam: Present: atraumatic, normal inspection, normocephalic - Eye Eye exam: Present: normal appearance. Absent: nystagmus, periorbital swelling, periorbital tenderness - ENT ENT exam: Present: normal exam, normal external ear exam, normal oropharynx - Neck Neck exam: Present: normal inspection. Absent: lymphadenopathy, meningismus - Respiratory Respiratory exam: Present: decreased breath sounds. Absent: accessory muscle use, chest wall tenderness, prolonged expiratory phase, rhonchi, wheezes - Cardiovascular Cardiovascular exam: Present: normal rate and rhythm. Absent: gallop, JVD, +S3, +S4 - GI/Abdominal GI/Abdominal exam: Present: normal bowel sounds, soft, distended. Absent: rebound, tenderness - Neurological Exam Neurological exam: Present: alert, oriented X3, reflexes normal. Absent: motor sensory deficit - Skin Skin exam: Present: normal color. Absent: cyanosis, erythema Medical - PN: Obj Da - Labs CBC & Chem 7: 02/16/19 05:25 02/16/19 05:25 Labs: Abnormal Lab Results 02/16/19 02/16/19 02/16/19 07:22 05:25 05:25 RBC 2.87 L Hgb 8.5 L Hct 25.4 L RDW 18.0 H Plt Count 102 L Gran % Lymph % (Auto) Lymph # (Auto) Band Neutrophils % 15 H Lymphocytes % 3 L Metamyelocytes % 4 H Myelocytes % 4 H Platelet Estimate Decreased A RBC Morphology Abnorm A Poikilocytosis 1+ A Anisocytosis 1+ A Tear Drop Cells Few A Ovalocytes Few A RBC Fragments Occ A PT 28.6 H INR 2.7 H Sodium 127 L Potassium 3.1 L Chloride 79 L Anion Gap 21.0 H BUN 103 H* Creatinine 4.5 H Glucose 262 H Calcium 7.3 L Magnesium 1.5 L Alkaline Phosphatase 140 H Urine Glucose (UA) 02/16/19 02/15/19 03:50 21:35 RBC 2.28 L Hgb 6.8 L* Hct 20.7 L* RDW 18.8 H Plt Count 121 L Gran % 94.2 H Lymph % (Auto) 2.7 L Lymph # (Auto) 0.21 L Band Neutrophils % Lymphocytes % Metamyelocytes % Myelocytes % Platelet Estimate RBC Morphology Poikilocytosis Anisocytosis Tear Drop Cells Ovalocytes RBC Fragments PT INR Sodium Potassium Chloride Anion Gap BUN Creatinine Glucose Calcium Magnesium Alkaline Phosphatase Urine Glucose (UA) 50 A Meds: Medications Acyclovir (Zovirax) 200 mg PO BID [facility] Last Admin: 02/16/19 09:53 Dose: 200 mg Documented by: Albuterol Sulfate (Ventolin) 2.5 mg NEB Q2HP PRN PRN Reason: Shortness Of Breath Atorvastatin Calcium (Lipitor) 10 mg PO QHS [facility] Carvedilol (Coreg) 12.5 mg PO BIDCC [facility] Last Admin: 02/16/19 07:50 Dose: 12.5 mg Documented by: Dexamethasone (Decadron) 40 mg PO Th@0830 [facility] Dextrose (Dextrose 50%) 0 ml IV UD PRN PRN Reason: Hypoglycemia Diagnostic Test (Pha) (Accu-Chek) 1 each FS ACHS [facility] Last Admin: 02/16/19 11:46 Dose: 1 each Documented by: Diltiazem HCl (Cardizem Cd) 180 mg PO QAM [facility] Last Admin: 02/16/19 09:52 Dose: 180 mg Documented by: Docusate Sodium (Colace) 100 mg PO BID [facility] Last Admin: 02/16/19 09:53 Dose: 100 mg Documented by: Famotidine (Pepcid) 20 mg IV Q12 [facility] Last Admin: 02/16/19 09:52 Dose: 20 mg Documented by: Glucose (Insta-Glucose) 15 gm PO PRN PRN PRN Reason: Hypoglycemia Sodium Chloride (Sodium Chloride 0.9%) 1,000 mls @ 75 mls/hr IV .[id number] [facility] Last Admin: 02/16/19 12:46 Dose: Not Given Documented by: Magnesium Sulfate (Magnesium Sulfate) 2 gm in 50 mls @ 25 mls/hr IV ONCE ONE Stop: 02/16/19 15:03 Imipramine HCl (Tofranil) 25 mg PO HS [facility] Insulin Human Lispro (Humalog) 0 unit SQ ACHS [facility]; Protocol Last Admin: 02/16/19 12:13 Dose: 8 units Documented by: Lactobacillus Rhamnosus (Culturelle) 1 cap PO BID [facility] Last Admin: 02/16/19 09:52 Dose: 1 cap Documented by: Morphine Sulfate (Morphine) 15 mg PO Q2HP PRN; Protocol PRN Reason: Pain Last Admin: 02/16/19 07:49 Dose: 15 mg Documented by: Morphine Sulfate (Ms Contin) 60 mg PO BID [facility]; Protocol Last Admin: 02/16/19 09:53 Dose: 60 mg Documented by: Ondansetron HCl (Zofran) 4 mg IV Q6HP PRN PRN Reason: Nausea And Vomiting Potassium Chlor[facility] ([facility]Con) [facility] Prochlorperazine (Compazine) 10 mg PO Q6HP PRN PRN Reason: Nausea Ropinirole HCl (Requip) 1 mg PO BID@0900,1500 [facility] Last Admin: 02/16/19 09:53 Dose: 1 mg Documented by: Ropinirole HCl (Requip) 2 mg PO HS [facility] Senna (Senokot) 2 tab PO HS [facility] Sevelamer Carbonate (Renvela) 800 mg PO BIDCC [facility] Last Admin: 02/16/19 07:49 Dose: 800 mg Documented by: Sodium Chloride (Saline Flush) 10 ml IV Q8 [facility] Last Admin: 02/16/19 04:43 Dose: 10 ml Documented by: Tamsulosin HCl (Flomax) 0.8 mg PO HS [facility] Trazodone HCl (Desyrel) 50 mg PO HSP PRN PRN Reason: Insomnia Last Admin: 02/16/19 01:28 Dose: 50 mg Documented by: Trazodone HCl (Desyrel) 50 mg PO HS [facility] Warfarin Sodium (Coumadin) 6 mg PO ONCE@1400 ONE Stop: 02/16/19 14:01 Warfarin Sodium (Coumadin Per Pharmacy) 1 order PO UD [facility] Zolpidem Tartrate (Ambien) 5 mg PO HSP PRN PRN Reason: Insomnia Medical - PN: A/P - Time Spent With Patient Total time spent is greater than 50% in coordination of care (as documented) at patient's floor/unit and/or counseling patient: - Narrative A/P Narrative: Acute renal failure on CKD stage IV/V Patient had CKD stage V and was on dialysis until recently and held the dialysis as his GFR improved Patient has active dialysis access and plan was to do an ultrafiltration next week Patient was on torsemide and metolazone and probable diuresis Patient reported 20 pound weight loss since Patient is also on active chemotherapy but denied any active side effects like GI symptoms He had a recent fall and had a rib fracture. He is on significant amount of narcotics due to arthritis and back pain Plan His creatinine slightly improved but BUN remains high and nephrology following the patient if he is not improving they will consider dialysis Hypomagnesemia and hypokalemia ordered replacement Sodium 127 continued NS 75 mils per hour History of V. fib arrest According to the patient patient had a V. fib arrest , airlifted and evaluated at [place] and was evaluated by cardiology and work-up was unremarkable. I do not have the documentation Patient also seen by cardiology outpatient for atrial fibrillation We will monitor telemetry Moderate hyponatremia Probably due to diuresis Sodium slightly improved and continue IV fluid Multiple myeloma on active chemotherapy We will continue his home medications Outpatient oncology follow-up in [facility] History of BPH We will monitor urine output Anxiety and insomnia Patient is on diazepam as needed I discussed with the patient because of the recurrent fall with a long-acting narcotics and diazepam is not a good combination He has a prolonged QT interval and will hold any antipsychotics Recent rib fracture and pneumonia Symptoms improved oxygenating well DVT prophylaxis-on Coumadin CODE STATUS-full code verified with the patient and Medical - PN: Qual - Stroke Symptom Onset Unknown: No - VTE Deep Vein Thrombosis/Pulmonary Embolism Present on Admission: No
--- NOTE | 2019-02-16 13:16 | Nephrology Progress Note ---
Subjective Patient information: Note initiated : 02/16/19 at 1:08 pm Service Date, if different from initiated Date: [] Patient: Joshua Adams 69 y/o M admitted on 02/15/19 for Has toxins in blood. Chief Complaint: [] Principal diagnosis: CKD IV and volume contraction Interval history: Mr. Adams is a 69-year-old gentleman well-known to the nephrology service as he was referred for dialytic management in the setting of a new diagnosis of multiple myeloma and what was hoped to be acute renal failure from hypercalcemia and dehydration. He required a brief period of hemodialysis to correct a number of metabolic disorders and allow rehydration and correction of his dehydration at which time he became nonoliguric and was able to be weaned off dialysis and as such has never been declared as having end-stage renal disease. It is been over a month since he has had his last hemodialysis, however, after the and holidays he apparently became bloated and required one isolated ultrafiltration treatment as an outpatient. Diuretics were adjusted and when the patient was sent for lab work yesterday his BUN was now over 104 and he was sent to the emergency room for evaluation. 2 things were apparent to the physicians that evaluated him, #1 he has no uremic complaints signs or symptoms, and #2 he is not volume overloaded. That said he was hydrated overnight with 1700 cc of intake and urine output of 700 cc for a net 1 kg fluid gain. This morning his labs were basically the same, he is able to lay flat has no dyspnea no shortness of breath and no edema. His blood pressure is well controlled, his hemoglobin has been declining so he has been ordered 200 mcg of Aranesp sub Q. My gut feeling is at this point he can be discharged. I also feel that he is unlikely to make much in the way of renal recovery and at some point he will return to end-stage renal disease and with that we will have a poor prognosis given his multiple myeloma. For drug dosing purposes I would estimate his GFR to be around 15 cc/min, he does have a tunneled dialysis catheter that can be used when dialysis is again restarted. He should continue his outpatient chemotherapy for his multiple myeloma, and it is not clear how much his myeloma contributes to his anemia. Laboratory Tests 09/08/18 02/15/19 02/16/19 17:50 21:35 03:50 WBC 7.9 POC Sodium 132 L Urine Color Straw Urine Appearance Clear Urine pH 6.0 Ur Specific [place] 1.011 Urine Protein Neg Urine Glucose (UA) 50 A Urine Ketones Neg Urine Occult Blood Neg Urine Nitrate Neg Urine Bilirubin Neg Urine Urobilinogen Neg Ur Leukocyte Esterase Neg Pertinent ROS: The ER note and admitting note were reviewed He denies any uremic, fluid overload, or CHF symptoms Hemoglobin is drifting downward Additional PMFSH (Level 3 Only): Nothing to add Objective - Vital Signs Vital signs: Vital Signs Temp Pulse Pulse Resp BP BP BP 02/16/19 07:41 36.5 C 72 16 132/63 02/16/19 04:35 36.9 C 60 16 136/67 02/16/19 03:30 36.7 C 62 20 132/68 02/16/19 03:00 36.8 C 60 16 132/67 02/16/19 02:45 36.8 C 61 16 127/65 02/16/19 02:00 36.7 C 61 16 130/67 02/16/19 01:30 36.6 C 66 20 128/65 02/16/19 01:20 36.6 C 62 20 121/60 02/15/19 23:10 36.7 C 61 20 129/64 02/15/19 22:32 57 L 121/62 02/15/19 22:02 58 L 124/57 02/15/19 21:46 58 L 119/66 02/15/19 21:32 122/57 02/15/19 21:26 57 L 122/58 02/15/19 21:22 36.7 C 57 L 16 122/58 Pulse Ox 02/16/19 07:41 93 02/16/19 04:35 94 02/16/19 03:30 94 02/16/19 03:00 93 02/16/19 02:45 95 02/16/19 02:00 93 02/16/19 01:30 93 02/16/19 01:20 91 02/15/19 23:10 93 02/15/19 22:32 89 L 02/15/19 22:02 91 02/15/19 21:46 92 02/15/19 21:32 02/15/19 21:26 93 02/15/19 21:22 93 Intake and Output 01/10/2702/16/19 02/16/19 21:59 05:59 13:59 Intake Total 1790 1400 Output Total 700 850 Balance 1090 550 Intake: IV 300 0 Sodium Chloride 0.9% 250 ml @ 300 0 100 mls/hr IV [facility] Rx#: [id number] Oral 840 1400 Blood Product 650 Output: Void Amount 700 850 Other: Meal 2x cheese sticks & diet cranberry juice Breakfast Percent of Meal Consumed 100% 100% Feeding Ability Independent Urine Appearance Clear Clear Urine Color Bright Yellow Pale Weight 71.668 kg 73.482 kg 73.482 kg Patient Weight 02/17/19 05:59 Weight 73.482 kg Intake & Output: Intake & Output 02/15/19 02/16/19 02/16/19 21:59 05:59 13:59 Intake Total 1790 1400 Output Total 700 850 Balance 1090 550 Weight 71.668 kg 73.482 kg 73.482 kg Intake: IV 300 0 Sodium Chloride 0.9% 250 ml @ 300 0 100 mls/hr IV [facility] Rx#: [id number] Oral 840 1400 Blood Product 650 Output: Void Amount 700 850 Other: Meal 2x cheese sticks & diet cranberry juice Breakfast Percent of Meal Consumed 100% 100% Feeding Ability Independent Urine Appearance Clear Clear Urine Color Bright Yellow Pale - General Appearance General appearance: appears started age, fatigue EENT: ATNC, PERRL, mucous membranes dry Neck: no JVD Respiratory: no kyphosis Cardiology: mid-systolic murmur, no rub, no gallops Gastrointestinal: normoactive bowel sounds, no tenderness Integumentary: no rash, ecchymotic Neurologic: no focal deficit, no asterixis, CN 3-12 intact Musculoskeletal: no deformities, no erythema, no cyanosis Psychiatric: mood/affect appropriate - Lab 02/16/19 05:25 02/16/19 05:25 Most recent lab results Calcium 7.3 mg/dl (8.6-10.4) L 02/16/19 05:25 Magnesium 1.5 mg/dL (1.6-2.5) L 02/16/19 05:25 Assessment and Plan (1) Dehydration 1. Is able to manage his fluid intake orally 2. Would discharge with follow-up with Dr. Abrams next week 3. Hold diuretics till next week Status: Acute Priority: High (2) Multiple myeloma 1. Being treated by [facility] oncology currently on Prolia and dexamethasone. They are awaiting improvement in his GFR, to add additional anti-plasmacytoid therapy, I am worried this is as good as it is going to get. 2. Both solids unlikely that the patient will have a good prognosis Status: Acute Priority: High Qualifiers: Multiple myeloma remission status: not in remission Qualified Code(s): C90.00 - Multiple myeloma not having achieved remission (3) Anemia due to stage 4 chronic kidney disease treated with darbepoetin 1. Aranesp 200 mcg given 2. Return to clinic in 1 week for additional KATELYN therapy Status: Acute
[2019-02-16] MEDS ORDERED: WARFARIN 3 MG TABLET PO ONE (14:00)
[2019-02-16] MEDS: POTASSIUM CHLORIDE 20 MEQ PACKET PO SCH (17:43)
[2019-02-16] MEDS ORDERED: traZODone HCL 50 MG TABLET PO SCH ×2 (21:00)
[2019-02-16] MEDS ORDERED: TAMSULOSIN 0.4 MG CAPSULE PO SCH ×2 (21:00)
[2019-02-16] MEDS ORDERED: IMIPRAMINE 25 MG TABLET PO SCH ×2 (21:00)
[2019-02-16] MEDS ORDERED: ATORVASTATIN 20 MG TABLET PO SCH (21:00)
[2019-02-16] MEDS ORDERED: SENNOSIDES 1 TABLET PO SCH ×2 (21:00)
[2019-02-16] MEDS ORDERED: rOPINIRole 1 MG TABLET PO SCH (21:00)
[2019-02-16] MEDS ORDERED: ATORVASTATIN 10 MG PO SCH (21:00)
[2019-02-17] MEDS: 0.9 % SODIUM CHLORIDE 1,000 ML IV SCH (02:09)
[2019-02-17] MEDS: 0.9 % SODIUM CHLORIDE 10 ML SYRINGE IV SCH (04:06)
[2019-02-17 06:31] LABS: INR 2.8 (0.9-1.1); Prothrombin Time 28.8 sec (11.9-14.5)
[2019-02-17 06:45] LABS: Albumin 3.3 gm/dL (3.2-5.2); Calcium 6.9 mg/dl (8.6-10.4); Phosphorous 5.5 mg/dL (2.7-4.5); Uric Acid 11.4 mg/dL (2.5-8.0)
[2019-02-17] MEDS: INSULIN LISPRO 1 UNIT/0.01 ML UNIT SQ SCH ×2 (07:15→11:49)
[2019-02-17 07:46] LABS: Basophils # (Auto) 0.03 K/mcL (0.00-0.30); Basophils % (Auto) 0.3 % (0.0-2.0); Eosinophils # (Auto) 0.07 K/mcL (0.00-0.70); Eosinophils % (Auto) 0.8 % (0.0-7.0); Granulocytes % (Auto) 88.7 % (38.0-78.0); Hematocrit 25.7 % (40.1-51.0); Hemoglobin 8.6 g/dL (13.7-17.5); Lymphocytes # (Auto) 0.24 K/mcL (1.50-4.80); Lymphocytes % (Auto) 2.6 % (15.5-49.0); Mean Cell Volume 88.3 fL (80.0-100.0); Mean Corpuscular HGB Conc 33.5 g/dL (31.0-36.0); Monocytes % (Auto) 7.6 % (1.0-12.0); Platelet Count 127 K/mcL (140-440); RBC 2.91 M/mcL (4.63-6.08); Red Cell Distribution Width 18.2 % (11.5-14.5); WBC 9.2 K/mcL (4.50-11.00)
[2019-02-17] MEDS: DILTIAZEM 180 MG CAP.XL.24H PO SCH (08:06)
[2019-02-17] MEDS: morphine 30 MG TAB.SR.12H PO SCH (08:06)
[2019-02-17] MEDS: ACYCLOVIR 400 MG TABLET PO SCH (08:07)
[2019-02-17] MEDS: SEVELAMER 800 MG TABLET PO SCH (08:07)
[2019-02-17] MEDS: rOPINIRole 1 MG TABLET PO SCH (08:08)
[2019-02-17] MEDS: CARVEDILOL 12.5 MG TABLET PO SCH (08:08)
[2019-02-17] MEDS: DOCUSATE SODIUM 100 MG CAPSULE PO SCH (08:08)
[2019-02-17] MEDS: LACTOBACILLUS 1 CAPSULE PO SCH (08:08)
[2019-02-17] MEDS: FAMOTIDINE/PF 20 MG/2 ML VIAL IV SCH (08:18)
[2019-02-17] MEDS: POTASSIUM CHLORIDE 20 MEQ PACKET PO SCH (08:18)
--- NOTE | 2019-02-17 11:54 | Discharge Summary ---
Medical - DS: Prov Patient information: Note initiated : 02/17/19 at 11:51 am Service Date, if different from initiated Date: [] Patient: Joshua Adams 69 y/o M admitted on 02/15/19 for Has toxins in blood. Chief Complaint: [] Date of admission: 02/15/19 23:07 Discharge date: 02/17/19 Primary care physician: Pennie Lee DO Consults: 02/15/19 Consult to Physician [CONS] Stat Comment: Consulting Provider: Gilbert Vargas Reason For Exam: Physician to Consult Medical - DS: Meds - Discharge Medications Active and Home Medications: Home Medications Chlorhexidine Gluconate [Paroex] 15 ml .ROUTE BID 08/14/18 [History Confirmed 02/15/19 Last Taken 02/15/19 12:00] Insulin Lispro [Insulin Lispro Kwikpen U-100] See Protocol SQ ACHS #2 insuln.pen 08/17/18 [Rx Confirmed 02/15/19 Last Taken 02/15/19 14:00] atorvastatin 10 mg tablet 10 mg PO QHS #90 tab 11/20/18 [Rx Confirmed 02/15/19 Last Taken 02/14/19 23:00] trazodone 50 mg tablet 50 mg PO HS #90 tab 11/20/18 [Rx Confirmed 02/16/19 Last Taken 02/14/19 23:00] linagliptin 5 mg tablet 5 mg PO QDAY #90 tab 12/12/18 [Rx Confirmed 02/15/19 Last Taken 02/15/19 08:00] ropinirole 1 mg tablet 1 mg PO .COMPLEX #120 tab 12/12/18 [Rx Confirmed 02/16/19 Last Taken 02/15/19 20:00] Dexamethasone [Decadron] 40 mg PO WEEKLY 12/15/18 [History Confirmed 02/15/19 Last Taken 02/15/19 12:00] Imipramine [Tofranil] 25 mg PO HS 12/15/18 [History Confirmed 02/15/19 Last Taken 02/14/19 23:00] Ixazomib Citrate [Ninlaro] 3 mg PO .COM 12/15/18 [History Confirmed 02/15/19 Last Taken 02/14/19 12:00] Lenalidomide [Revlimid] 2.5 mg PO DAILY 12/15/18 [History Confirmed 02/15/19 Last Taken 02/15/19 08:00] Prochlorperazine (Pp) [Compazine (Pp)] 10 mg PO Q6H PRN 12/15/18 [History Confirmed 02/15/19 Last Taken 02/14/19 20:00] Tamsulosin [Flomax] 0.8 mg PO HS 12/15/18 [History Confirmed 02/16/19 Last Taken 02/15/19 23:00] Lactobacillus [Culturelle] 1 cap PO BID #60 cap 12/17/18 [Rx Confirmed 02/15/19 Last Taken 02/15/19 08:00] diazepam 5 mg tablet 5 mg PO BID PRN tab 12/25/18 [History Confirmed 02/15/19 Last Taken 02/13/19 12:00] morphine 15 mg immediate release tablet 15 mg PO Q2HP PRN 12/25/18 [History Confirmed 02/15/19 Last Taken 02/15/19 18:00] morphine 30 mg tablet,extended release 60 mg PO BID 12/25/18 [History Confirmed 02/15/19 Last Taken 02/15/19 20:00] acyclovir 200 mg capsule 200 mg PO BID #60 cap 01/08/19 [Rx Confirmed 02/15/19 Last Taken 02/15/19 08:00] carvedilol 12.5 mg tablet 12.5 mg PO BID #60 tab 01/19/19 [Rx Confirmed 02/15/19 Last Taken 02/15/19 08:00] sevelamer HCl 800 mg tablet 800 mg PO BID #60 tab 01/19/19 [Rx Confirmed 02/16/19 Last Taken 02/15/19 20:00] diltiazem HCl 180 mg capsule,24 hr,extended release 180 mg PO QAM #30 cap 02/15/19 [Rx Confirmed 02/15/19 Last Taken 02/15/19 08:00] torsemide 20 mg tablet 40 mg PO QDAY #30 tab 02/15/19 [Rx Confirmed 02/16/19 Last Taken 02/15/19 08:00] warfarin 6 mg tablet 6 mg PO DAILY #30 tab 02/16/19 [Rx Last Taken Unknown] Medical - DS: Hosp Hospital Course: 02/15 69-year-old gentleman with a history of multiple myeloma on active chemotherapy, stage V CKD was on dialysis and his GFR improved and holding dialysis for the last few months Patient has been managed by her justice court deputy clerk and patient was on torsemide and metolazone metolazone was stopped recently and his creatinine started getting w orse for the last few days and his BUN is 101 and GFR is 11 with his baseline GFR around 15-18 recently and BUN is around 60. Patient is feeling weak and tired but otherwise no signs of volume overload. Patient appears to be dehydrated actually and no fever no chills review of system otherwise was unremarkable other than his chronic symptoms. Discussed with the justice court deputy clerk who saw his labs and send him to the ER today and recommended start him on NS because of the low sodium and probable overdiuresis. ER physician discussed with the justice court deputy clerk and they will see the patient in the morning. 02/16 Patient is feeling better His BUN remains high Creatinine slightly improved Continue IV hydration Hypomagnesemia and hypokalemia ordered replacement Nephrology evaluating the patient Acute renal failure on CKD stage IV/V Patient had CKD stage V and was on dialysis until recently and held the dialysis as his GFR improved Patient has active dialysis access and plan was to do an ultrafiltration next week Patient was on torsemide and metolazone and probable diuresis Patient reported 20 pound weight loss since Patient is also on active chemotherapy but denied any active side effects like GI symptoms He had a recent fall and had a rib fracture. He is on significant amount of narcotics due to arthritis and back pain Plan His creatinine and BUN improved Discussed with the justice court deputy clerk and recommended discharging him in follow-up in the nephrology clinic next week Recommended to hold his diuretics Discussed with the patient and instructed him to hold torsemide and metolazone If he is not improving they will consider dialysis Hypomagnesemia and hypokalemia ordered replacement Sodium improved to 129 History of V. fib arrest According to the patient patient had a V. fib arrest , airlifted and evaluated at [place] and was evaluated by cardiology and work-up was unremarkable. I do not have the documentation Patient also seen by cardiology outpatient for atrial fibrillation Telemetry was unremarkable Hypocalcemia Probably due to the Prolia Needs outpatient follow-up Moderate hyponatremia Probably due to diuresis Sodium slightly improved and continue IV fluid Multiple myeloma on active chemotherapy We will continue his home medications Outpatient oncology follow-up in [facility] History of BPH We will monitor urine output Anxiety and insomnia Patient is on diazepam as needed I discussed with the patient because of the recurrent fall with a long-acting narcotics and diazepam is not a good combination He has a prolonged QT interval and will hold any antipsychotics Recent rib fracture and pneumonia Symptoms improved oxygenating well Discharge diagnosis: Acute on chronic renal failure, dehydration, hyponatremia, hypocalcemia - Time Spent with Patient Total time spent providing and/or coordinating discharge services: Greater than 30 minutes Medical - DS: Exam - Constitutional Vitals: Vital Signs Temp Pulse Resp BP Pulse Ox 02/17/19 11:19 97.6 F 62 12 147/71 95 02/17/19 07:20 97.8 F 58 L 14 143/69 91 02/17/19 06:57 63 02/17/19 03:43 97.4 F 63 14 139/66 97 02/16/19 23:42 98.2 F 60 16 130/67 97 02/16/19 19:54 98.1 F 61 16 129/64 93 02/16/19 12:00 96.9 F L 66 127/65 96 Intake and Output 02/16/19 02/17/19 02/17/19 21:59 05:59 13:59 Intake Total 860 360 600 Output Total 775 1600 Balance 85 -1240 600 Intake: IV 200 Sodium Chloride 0.9% 1,000 ml @ 150 50 mls/hr IV .Q20[facility] Rx#: [id number] Oral 660 360 600 Output: Void Amount 775 1600 Other: Meal Dinner Breakfast Percent of Meal Consumed 100% 100% Feeding Ability Independent Urine Appearance Clear Clear Clear Urine Color Bright Yellow Pale Bright Yellow Urine Odor Normal Stool Size Small Stool Color Brown Stool Consistency Formed # Voids 1 # Bowel Movements 1 Weight 163 lb 8 oz - Head Head exam: Present: atraumatic, normal inspection, normocephalic - Eye Eye exam: Present: EOMI. Absent: nystagmus, periorbital swelling, periorbital tenderness Pupils: Present: PERRL - ENT ENT exam: Present: mucous membranes moist, normal exam, normal external ear exam, normal oropharynx - Respiratory Respiratory exam: Present: normal respiratory exam. Absent: accessory muscle use, chest wall tenderness, rhonchi, wheezes - Cardiovascular Cardiovascular exam: Present: normal rate and rhythm. Absent: bradycardia, diastolic murmur - GI/Abdominal GI/Abdominal exam: Present: normal bowel sounds, soft, distended - Neurological Exam Neurological exam: Present: alert, oriented X3, reflexes normal. Absent: motor sensory deficit - Psychiatric Psychiatric exam: Present: normal affect, normal mood. Absent: anxious Medical - DS: Data Labs on day of discharge: Labs from last 24 hours 02/17/19 02/17/19 02/17/19 06:50 06:50 05:35 WBC RBC Hgb Hct MCV MCH MCHC RDW Plt Count MPV Gran % Lymph % (Auto) [place] % (Auto) Eos % (Auto) Baso % (Auto) Gran # Lymph # (Auto) [place] # (Auto) Eos # (Auto) Baso # (Auto) PT INR Sodium 129 L Potassium 3.3 Chloride 84 L Carbon Dioxide 25 Anion Gap 20.0 H BUN 99 H Creatinine 3.8 H GFR Calculation 15 Glucose 202 H Osmolality 306 H Uric Acid 11.4 H Calcium 6.9 L Phosphorus 5.5 H Magnesium 1.9 Total Protein 6.1 Albumin 3.3 Ur Random Creatinine 21.7 U Random Total Protein 33 Ur Random Uric Acid 02/17/19 02/17/19 02/16/19 05:35 05:35 03:50 WBC 9.2 RBC 2.91 L Hgb 8.6 L Hct 25.7 L MCV 88.3 MCH 29.6 MCHC 33.5 RDW 18.2 H Plt Count 127 L MPV Not Reportable Gran % 88.7 H Lymph % (Auto) 2.6 L [place] % (Auto) 7.6 Eos % (Auto) 0.8 Baso % (Auto) 0.3 Gran # 8.18 H Lymph # (Auto) 0.24 L [place] # (Auto) 0.70 Eos # (Auto) 0.07 Baso # (Auto) 0.03 PT 28.8 H INR 2.8 H Sodium Potassium Chloride Carbon Dioxide Anion Gap BUN Creatinine GFR Calculation Glucose Osmolality Uric Acid Calcium Phosphorus Magnesium Total Protein Albumin Ur Random Creatinine U Random Total Protein Ur Random Uric Acid 20.3 Medical - DS: A/P - Patient/Caregiver Discharge Instructions Activity: increase activity as tolerated Diet: Renal - Follow up Plan Follow up with: Pennie Lee DO [Primary Care Provider] - Torri Abrams MD [Physician] - Disposition: Home, Self-Care Prognosis: Fair Rehab Potential: Fair I certify that the patient requires SNF services: No Overall status at discharge: patient is back to baseline Medical - DS: Qual - VTE Deep Vein Thrombosis/Pulmonary Embolism Present on Admission: No
--- NOTE | 2019-02-17 12:13 | Nephrology Progress Note ---
Subjective Patient information: Note initiated : 02/17/19 at 12:09 pm Service Date, if different from initiated Date: [] Patient: Joshua Adams 69 y/o M admitted on 02/15/19 for Has toxins in blood. Chief Complaint: [] Principal diagnosis: CKD IV and volume contraction Interval history: BUN < 100 but multifactorial, decreased GFR, catebolic effects of dexamethasone, volume status. Based on his SCr his GFR is better. Hold metolazone and loop diuretics at home Told to call Dr Abrams if and when swelling reoccurs. Decrease dose of Diltiazem 360 => 180 mg po qDay Follow up with renal for [facility] next tuesday or tuesday. Laboratory Tests 02/16/19 02/17/19 02/17/19 03:50 05:35 05:35 WBC 9.2 Hgb 8.6 L Hct 25.7 L Plt Count 127 L PT 28.8 H INR 2.8 H Sodium Potassium Chloride Carbon Dioxide Anion Gap BUN Creatinine GFR Calculation Glucose Osmolality Uric Acid Calcium Phosphorus Magnesium Total Protein Albumin Ur Random Creatinine U Random Total Protein Ur Random Uric Acid 20.3 02/17/19 02/17/19 02/17/19 05:35 06:50 06:50 WBC Hgb Hct Plt Count PT INR Sodium 129 L Potassium 3.3 Chloride 84 L Carbon Dioxide 25 Anion Gap 20.0 H BUN 99 H Creatinine 3.8 H GFR Calculation 15 Glucose 202 H Osmolality 306 H Uric Acid 11.4 H Calcium 6.9 L Phosphorus 5.5 H Magnesium 1.9 Total Protein 6.1 Albumin 3.3 Ur Random Creatinine 21.7 U Random Total Protein 33 Ur Random Uric Acid Pertinent ROS: No swelling or uremic symptoms Additional PMFSH (Level 3 Only): N/A Objective - Vital Signs Vital signs: Vital Signs Temp Pulse Resp BP Pulse Ox 02/17/19 11:19 36.4 C 62 12 147/71 95 02/17/19 07:20 36.6 C 58 L 14 143/69 91 02/17/19 06:57 63 02/17/19 03:43 36.3 C 63 14 139/66 97 02/16/19 23:42 36.8 C 60 16 130/67 97 02/16/19 19:54 36.7 C 61 16 129/64 93 Intake and Output 02/16/19 02/17/19 02/17/19 21:59 05:59 13:59 Intake Total 860 360 600 Output Total 775 1600 Balance 85 -1240 600 Intake: IV 200 Sodium Chloride 0.9% 1,000 ml @ 150 50 mls/hr IV .Q20H [facility] Rx#: [id number] Oral 660 360 600 Output: Void Amount 775 1600 Other: Meal Dinner Breakfast Percent of Meal Consumed 100% 100% Feeding Ability Independent Urine Appearance Clear Clear Clear Urine Color Bright Yellow Pale Bright Yellow Urine Odor Normal Stool Size Small Stool Color Brown Stool Consistency Formed # Voids 1 # Bowel Movements 1 Weight 74.162 kg Intake & Output: Intake & Output 02/16/19 02/17/19 02/17/19 21:59 05:59 13:59 Intake Total 860 360 600 Output Total 775 1600 Balance 85 -1240 600 Weight 74.162 kg Intake: IV 200 Sodium Chloride 0.9% 1,000 ml @ 150 50 mls/hr IV .Q20H [facility] Rx#: [id number] Oral 660 360 600 Output: Void Amount 775 1600 Other: Meal Dinner Breakfast Percent of Meal Consumed 100% 100% Feeding Ability Independent Urine Appearance Clear Clear Clear Urine Color Bright Yellow Pale Bright Yellow Urine Odor Normal Stool Size Small Stool Color Brown Stool Consistency Formed # Voids 1 # Bowel Movements 1 - General Appearance General appearance: well-developed, well-nourished, appears started age EENT: ATNC, PERRL, mucous membranes moist Neck: no JVD, no thyromegaly, no carotid bruit, supple Respiratory: no kyphosis, no scoliosis, clear Cardiology: no rub, no gallops, no edema Gastrointestinal: normoactive bowel sounds, no tenderness, no guarding Integumentary: no rash, ecchymotic Neurologic: no focal deficit, no asterixis, alert and oriented x3, CN 3-12 intact Musculoskeletal: no deformities, no erythema, no cyanosis, no clubbing Psychiatric: mood/affect appropriate - Lab 02/17/19 05:35 02/17/19 05:35 Most recent lab results Calcium 6.9 mg/dl (8.6-10.4) L 02/17/19 05:35 Phosphorus 5.5 mg/dL (2.7-4.5) H 02/17/19 05:35 Magnesium 1.9 mg/dL (1.6-2.5) 02/17/19 05:35 Assessment and Plan (1) Dehydration 1. Is able to manage his fluid intake orally 2. Would discharge with follow-up with Dr. Abrams next week 3. Hold diuretics till next week Status: Acute Priority: High (2) Multiple myeloma 1. Being treated by [facility] oncology currently on Prolia, lenalidomide, ixazobid and dexamethasone. They are awaiting improvement in his GFR, to add additional anti-plasmacytoid therapy, I am worried this is as good as it is going to get. 2. For drug dosing purposes, GFR is 15 cc/min 3. Definately hyperuricemic, urine uric anid/creatine ratio approaching 1 which suggests an element of uric acid nephropathy (tumor lysis albeit low grade) so avoid dehydration, excessive diuresis or isolated U/F. Will speak to Dr Abrams about allopurinol. Status: Acute Priority: High Qualifiers: Multiple myeloma remission status: not in remission Qualified Code(s): C90.00 - Multiple myeloma not having achieved remission (3) Anemia due to stage 4 chronic kidney disease treated with darbepoetin 1. Aranesp 200 mcg given 2. Return to clinic in 1 week for additional KATELYN therapy 3. Labs to justify Aranesp next tuesday are as follows: Laboratory Tests 02/17/19 05:35 Hgb 8.6 L Hct 25.7 L Status: Acute Priority: Medium (4) Hyperuricemia, drug-induced, asymptomatic 1. Result of low grade tumor , dehydration, and GFR =15 2. Urine uric acide to creatinine ratio is high (~1), so I will speak to nephro logist about starting allopruinol Status: Acute - Narrative A/P Narrative: No objection to discharge. Med changes reviewed with the patient who voice understanding. Discussed with Dr. Sam.
[2019-02-17] MEDS: morphine 15 MG TABLET PO PRN (13:14)
[2019-02-17] MEDS ORDERED: WARFARIN 3 MG TABLET PO ONE (14:00)
[2019-02-22] MEDS ORDERED: DEXAMETHASONE 4 MG TABLET PO SCH (08:30)
== END 2019-02-17 13:25 | disposition home or self-care (01) | DRG 683 ==
LOC: ED 21:21 → MEDSUR 21:21 → SUATTDRO 23:07 → OBSVTOIN 23:07 → MEDSUR 02-16 11:41
PROVIDERS: ADMIT Internal Medicine; ATTEND Internal Medicine Nephrology